=== PATIENT | female | born 1995 | race Caucasian/White ===

== ENCOUNTER 2017-04-21 12:30 | Emergency (ER) | payer OTHER, SELFPAY | END 2017-04-21 14:05 | disposition home or self-care (01) | PROVIDERS: Emergency Provider Nurse Practitioner; Family Provider Internal Medicine; Visit Provider Nurse Practitioner | DX: H65.93 Unspecified nonsuppurative otitis media, bilateral (principal); E03.9 Hypothyroidism, unspecified; Z88.6 Allergy status to analgesic agent | CPT/HCPCS: 99201 ==

== ENCOUNTER → 2017-06-25 14:29 | Outpatient (REF) | payer OTHER, SELFPAY ==
[2017-06-25 18:02] LABS: Basophils % 0.3 % (0.1-2.0); Eosinophils # 0.2 K/mm3 (0.0-0.4); Eosinophils % 2.8 % (0.1-12.0); Hematocrit 46.6 % (37.0-47.0); Hemoglobin 15.4 g/dL (12.2-16.2); Lymphocytes # 0.9 K/mm3 (0.7-4.5); Lymphocytes % 15.9 K/mm3 (10-50); Mean Corpuscular HGB Conc 33.1 g/dL (31.8-35.4); Mean Corpuscular Volume 87.6 fl (81-99); Mean Platelet Volume 7.9 fl (7.4-10.4); Monocytes # 0.4 K/mm3 (0.1-1.0); Monocytes % 6.4 % (1.7-9.3); Neutrophils # 4.1 K/mm3 (1.8-7.8); Neutrophils % 74.6 % (37.0-80.0); Platelet Count 341 K/mm3 (142-424); Red Blood Count 5.31 M/mm3 (4.20-5.40); Red Cell Distribution Width 12.6 % (11.5-17.5); White Blood Count 5.5 K/mm3 (4.5-13.0)
[2017-06-25 18:04] LABS: HCG Qualitative, Serum Negative (Negative)
[2017-06-25 19:17] LABS: Alanine Aminotransferase 39 U/L (12-78); Albumin Level 3.7 gm/dL (3.4-5.0); Albumin/Globulin Ratio 1.2 (1.1-1.8); Alkaline Phosphatase 92 U/L (46-116); Anion Gap 14.6 mEq/L (5-15); Aspartate Amino Transferase 38 U/L (15-37); Bilirubin,Total 0.3 mg/dL (0.2-1.0); Blood Urea Nitrogen 7 mg/dL (7-18); Calcium 8.5 mg/dL (8.5-10.1); Carbon Dioxide 24 mmol/L (21.0-32.0); Chloride 102 mmol/L (98-107); Chol/HDL Ratio 3.6 (1-3.5); Cholesterol 177 mg/dL (140-200); Creatinine,Serum 0.83 mg/dL (0.55-1.02); Estimated Glomerular Filt Rate 88 ml/min (>60); GFR (African American) 106 ML/MIN (>60); Glucose 89 mg/dL (74-106); HDL Cholesterol 49 mg/dL (29-89); LDL Cholesterol 113 mg/dL (0-130); Potassium 3.6 mmoL/L (3.5-5.1); Sodium 137 mmol/L (136-145); T4 (Thyroxine) 9.1 ug/dl (5.4-10.6); Thyroid Stimulating Hormone 5.05 uIU/ml (0.516-4.13); Total Protein,Serum 6.7 gm/dL (6.4-8.2); Triglycerides 76 mg/dL (30-200); VLDL Cholesterol 15 mg/dL (0-40)
[2017-06-27 18:30] LABS: Vitamin D 25 Hydroxy 35.4 ng/mL (30.0-100.0)
== END ==
LOC: LAB 14:29
PROVIDERS: Visit Provider Physician Assistant
DX: R53.83 Other fatigue (principal); Z79.899 Other long term (current) drug therapy
CPT/HCPCS: 80053; 80061; 82652; 84436; 84443; 84703; 85025

== ENCOUNTER 2017-06-27 11:41 | Emergency (ER) | payer OTHER, SELFPAY ==
[2017-06-27 11:53] VITALS: BP 145/89; PULSE 84; RESP 18; TEMP 36.8; O2SAT 98; BMI 36.5
--- NOTE | 2017-06-27 11:55 | XR_ITS ---
XR acute abdomen series HISTORY: ITS.REASON: diarrhea ORDERING PHYSICIAN: Leo Montanez MD PATIENT AGE: 22 years COMPARISON: None FINDINGS: Frontal view of the chest shows no acute finding. Upright and supine views of the abdomen show scattered air-fluid levels within colon is nondistended. No intestinal obstruction or free air. There is an IUD present. No acute bony anomalies or abnormal calcifications. IMPRESSION: Nondistended fluid-filled loops of large bowel consistent with diarrhea disease. No obstruction or other acute anomalies
[2017-06-27 11:56] VITALS: BP 131/88; BP 134/90; BP 145/85; PULSE 104; PULSE 84; PULSE 90
--- NOTE | 2017-06-27 11:57 | HMH.EDNVD ---
ED Disposition Clinical Impression: Cryptosporidial gastroenteritis, Diarrhea Disposition: Home, Self-Care Condition on Discharge: Fair Instructions: DI for Diarrhea and Traveler's Diarrhea -- Adult, DI for Diarrhea and Traveler's Diarrhea -- Child, DI for Nausea -- Adult, DI for Nausea -- Child Additional Instructions: 1- drink plenty of Gotrade. 2- start Nitazoxnide 500 mg po bid. 3- see pcp Dr Louis for HIV testing and CD 4 count. Prescriptions: Nitazoxanide [Alinia] 500 mg PO Q12 #6 tab Referrals: Jerod Louis MD [Primary Care Provider] - - Critical Care Critical Care Time: No Attestation: On 06/27/17, the high probability of a clinically significant, sudden or life threatening deterioration of the following system(s) required my full and direct attention, intervention and personal management. The time I documented below is in addition to time spent performing reported procedures but includes the following listed in this critical care notation. Medical Decision Making Vital Signs: 06/27/17 11:53 06/27/17 11:56 06/27/17 13:13 Temperature 98.3 F Temperature Source Oral Pulse Rate [Orthostatic Lying Right] 84 Pulse Rate [Orthostatic Sitting Right] 90 Pulse Rate [Orthostatic Standing Right] 104 H Pulse Rate [Right Brachial] 84 76 Respiratory Rate 18 18 Blood Pressure [Orthostatic Lying Right Arm] 145/85 Blood Pressure [Orthostatic Sitting Right Arm] 131/88 Blood Pressure [Orthostatic Standing Right Arm] 134/90 Blood Pressure [Right Arm] 145/89 113/66 Blood Pressure Mean [Right Arm] 107 81 Blood Pressure Source [Right Arm] Automatic Cuff Automatic Cuff Blood Pressure Position [Right Arm] Sitting Sitting 02 Sat by Pulse Oximetry 98 98 Oxygen Delivery Method Room Air Room Air - Lab Data Lab Results 06/27/17 11:56: Stl Aeromonas (PCR) Not detected, Stl C. cayetanensis PCR Not detected, Stool Rotavirus (PCR) Not detected, Stl Adenov F 40/41 PCR Not detected, Stool Astrovirus (PCR) Not detected, Stool Campylobacter PCR Not detected, Stl C.difficile Tox PCR Not detected, Stool Cryptosporidium PCR Detected A, Stl E.coli Shiga Tox PCR Not detected, Stool E coli O157 PCR Not detected, Stl Enterotoxigenic E PCR Not detected, Stool EPEC (PCR) Not detected, Stool EAEC (PCR) Not detected, Stl E. histolytica PCR Not detected, Stool Giardia Lamblia PCR Not detected, Stool Salmonella PCR Not detected, Stool Sapovirus (PCR) Not detected, Stl P. shigelloides PCR Not detected, Stl Shigella/EIEC PCR Not detected, St Y.enterocolitica PCR Not detected, Stool Vibrio (PCR) Not detected, Stl Vibrio cholerae PCR Not detected, Stl Norovirus GI/GII PCR Not detected 06/27/17 12:25: WBC 8.4 D, RBC 5.32, Hgb 15.4, Hct 46.0, MCV 86.4, MCH 28.9, MCHC 33.5, RDW 12.6, Plt Count 346, MPV 7.7, Neut % (Auto) 64.3, Lymph % (Auto) 22.5, [place] % (Auto) 9.0, Eos % (Auto) 3.8, Baso % (Auto) 0.4, Neut # (Auto) 5.4, Lymph # (Auto) 1.9, [place] # (Auto) 0.8, Eos # (Auto) 0.3, Baso # (Auto) 0.0 06/27/17 12:25: Sodium 137, Potassium 3.4 L, Chloride 103, Carbon Dioxide 23, Anion Gap 14.4, BUN 8, Creatinine 0.82, Estimated Creat Clear 161, Estimated GFR 89, Est GFR ( Amer) 108, Glucose 88, Calcium 8.3 L, Magnesium 1.5, Total Bilirubin 0.3, AST 30, ALT 36, Alkaline Phosphatase 86, Total Protein 6.9, Albumin 3.5, Globulin 3.4 H, Albumin/Globulin Ratio 1.0 L, Lipase 63 L Result diagrams: 06/27/17 12:25 06/27/17 12:25 Orders (Tests/Meds): ED MEDICATIONS Discontinued Medications Generic Name Dose Route Start Last Admin Trade Name Freq PRN Reason Stop Dose Admin Dicyclomine HCl 10 mg 06/27/17 12:01 06/27/17 12:29 Bentyl 10mg Capsule PO 06/27/17 12:02 10 mg ONCE ONE Administration Sodium Chloride 1,000 mls @ 999 mls/hr 06/27/17 12:30 06/27/17 12:29 Sod Chlor 0.9% 1000ml Bag IV 06/27/17 13:30 999 mls/hr .Q1H1M KORINA Administration Loperamide HCl 4 mg 06/27/17 12:01 06/27/17 12:10 Imod
[2017-06-27 11:59] LABS: Adenovirus F 40/41, stool Not Detected (NotDetected); Astrovirus Not Detected (NotDetected); Campylobacter Not Detected (NotDetected); Clostridium Difficile A/B, PCR Not Detected (NotDetected); Cyclospora Cayetanesis Not Detected (NotDetected); Entamoeba histolytica Not Detected (NotDetected); Enteroaggregative E coli Not Detected (NotDetected); Enteropathogenic E coli Not Detected (NotDetected); Enterotoxigenic E coli Not Detected (NotDetected); Giardia lamblia Not Detected (NotDetected); Norovirus Not Detected (NotDetected); Plesimonas Shigalloides, PCR Not Detected (NotDetected); Rotavirus A Not Detected (NotDetected); Salmonella, PCR Not Detected (NotDetected); Sapovirus Not Detected (NotDetected); Shiga-like toxin E coli Not Detected (NotDetected); Shigella Enterovasive E coli Not Detected (NotDetected); Vibrio Cholerae Not Detected (NotDetected); Vibrio, PCR Not Detected (NotDetected); Yersinia Entercolitica, PCR Not Detected (NotDetected)
--- NOTE | 2017-06-27 12:00 | ED_ITS ---
ED Disposition Clinical Impression: Cryptosporidial gastroenteritis, Diarrhea Disposition: Home, Self-Care Condition on Discharge: Fair Instructions: DI for Diarrhea and Traveler's Diarrhea -- Adult, DI for Diarrhea and Traveler's Diarrhea -- Child, DI for Nausea -- Adult, DI for Nausea -- Child Additional Instructions: 1- drink plenty of Gotrade. 2- start Nitazoxnide 500 mg po bid. 3- see pcp Dr Louis for HIV testing and CD 4 count. Prescriptions: Nitazoxanide [Alinia] 500 mg PO Q12 #6 tab Referrals: Jerod Louis MD [Primary Care Provider] - - Critical Care Critical Care Time: No Attestation: On 06/27/17, the high probability of a clinically significant, sudden or life threatening deterioration of the following system(s) required my full and direct attention, intervention and personal management. The time I documented below is in addition to time spent performing reported procedures but includes the following listed in this critical care notation. Medical Decision Making Vital Signs: 06/27/17 11:53 06/27/17 11:56 06/27/17 13:13 Temperature 98.3 F Temperature Source Oral Pulse Rate [Orthostatic Lying Right] 84 Pulse Rate [Orthostatic Sitting Right] 90 Pulse Rate [Orthostatic Standing Right] 104 H Pulse Rate [Right Brachial] 84 76 Respiratory Rate 18 18 Blood Pressure [Orthostatic Lying Right Arm] 145/85 Blood Pressure [Orthostatic Sitting Right Arm] 131/88 Blood Pressure [Orthostatic Standing Right Arm] 134/90 Blood Pressure [Right Arm] 145/89 113/66 Blood Pressure Mean [Right Arm] 107 81 Blood Pressure Source [Right Arm] Automatic Cuff Automatic Cuff Blood Pressure Position [Right Arm] Sitting Sitting 02 Sat by Pulse Oximetry 98 98 Oxygen Delivery Method Room Air Room Air - Lab Data Lab Results 06/27/17 11:56: Stl Aeromonas (PCR) Not detected, Stl C. cayetanensis PCR Not detected, Stool Rotavirus (PCR) Not detected, Stl Adenov F 40/41 PCR Not detected, Stool Astrovirus (PCR) Not detected, Stool Campylobacter PCR Not detected, Stl C.difficile Tox PCR Not detected, Stool Cryptosporidium PCR Detected A, Stl E.coli Shiga Tox PCR Not detected, Stool E coli O157 PCR Not detected, Stl Enterotoxigenic E PCR Not detected, Stool EPEC (PCR) Not detected , Stool EAEC (PCR) Not detected, Stl E. histolytica PCR Not detected, Stool Giardia Lamblia PCR Not detected, Stool Salmonella PCR Not detected, Stool Sapovirus (PCR) Not detected, Stl P. shigelloides PCR Not detected, Stl Shigella /EIEC PCR Not detected, St Y.enterocolitica PCR Not detected, Stool Vibrio (PCR ) Not detected, Stl Vibrio cholerae PCR Not detected, Stl Norovirus GI/GII PCR Not detected 06/27/17 12:25: WBC 8.4 D, RBC 5.32, Hgb 15.4, Hct 46.0, MCV 86.4, MCH 28.9, MCHC 33.5, RDW 12.6, Plt Count 346, MPV 7.7, Neut % (Auto) 64.3, Lymph % (Auto) 22.5, [place] % (Auto) 9.0, Eos % (Auto) 3.8, Baso % (Auto) 0.4, Neut # (Auto) 5.4 , Lymph # (Auto) 1.9, [place] # (Auto) 0.8, Eos # (Auto) 0.3, Baso # (Auto) 0.0 06/27/17 12:25: Sodium 137, Potassium 3.4 L, Chloride 103, Carbon Dioxide 23, Anion Gap 14.4, BUN 8, Creatinine 0.82, Estimated Creat Clear 161, Estimated GFR 89, Est GFR ( Amer) 108, Glucose 88, Calcium 8.3 L, Magnesium 1.5, Total Bilirubin 0.3, AST 30, ALT 36, Alkaline Phosphatase 86, Total Protein 6.9 , Albumin 3.5, Globulin 3.4 H, Albumin/Globulin Ratio 1.0 L, Lipase 63 L Result diagrams: 06/27/17 12:25 06/27/17 12:25 Orders (Tests/Meds): ED
[2017-06-27 12:29] LABS: Basophils % 0.4 % (0.1-2.0); Eosinophils # 0.3 K/mm3 (0.0-0.4); Eosinophils % 3.8 % (0.1-12.0); Hemoglobin 15.4 g/dL (12.2-16.2); Lymphocytes # 1.9 K/mm3 (0.7-4.5); Lymphocytes % 22.5 K/mm3 (10-50); Mean Corpuscular HGB Conc 33.5 g/dL (31.8-35.4); Mean Corpuscular Hemoglobin 28.9 pg (27.0-31.2); Mean Corpuscular Volume 86.4 fl (81-99); Mean Platelet Volume 7.7 fl (7.4-10.4); Monocytes # 0.8 K/mm3 (0.1-1.0); Neutrophils # 5.4 K/mm3 (1.8-7.8); Neutrophils % 64.3 % (37.0-80.0); Platelet Count 346 K/mm3 (142-424); Red Blood Count 5.32 M/mm3 (4.20-5.40); Red Cell Distribution Width 12.6 % (11.5-17.5); White Blood Count 8.4 K/mm3 (4.5-13.0)
[2017-06-27 12:44] LABS: Alanine Aminotransferase 36 U/L (12-78); Albumin Level 3.5 gm/dL (3.4-5.0); Alkaline Phosphatase 86 U/L (46-116); Anion Gap 14.4 mEq/L (5-15); Bilirubin,Total 0.3 mg/dL (0.2-1.0); Blood Urea Nitrogen 8 mg/dL (7-18); Calcium 8.3 mg/dL (8.5-10.1); Carbon Dioxide 23 mmol/L (21.0-32.0); Chloride 103 mmol/L (98-107); Creatinine Clearance Estimated 161 mL/min (0-300); Creatinine,Serum 0.82 mg/dL (0.55-1.02); Estimated Glomerular Filt Rate 89 ml/min (>60); GFR (African American) 108 ML/MIN (>60); Globulin 3.4 gm/dl (1.3-3.2); Glucose 88 mg/dL (74-106); Lipase 63 u/L (73-393); Magnesium 1.5 mg/dL (1.4-2.2); Sodium 137 mmol/L (136-145); Total Protein,Serum 6.9 gm/dL (6.4-8.2)
[2017-06-27 12:48] LABS: Aspartate Amino Transferase 30 U/L (15-37); Potassium 3.4 mmoL/L (3.5-5.1)
[2017-06-27 13:13] VITALS: BP 113/66; PULSE 76; RESP 18; O2SAT 98
--- NOTE | 2017-06-27 14:40 | PC.NURSE ---
contacted lab to check on status of diarrhea panel, lab staff stated specimen had to be reran r/t error with machine. stated should be finished in approx 20 minutes
[2017-06-27 15:02] LABS: Cryptosporidium Detected (NotDetected)
--- NOTE | 2017-06-27 15:27 | PC.NURSE ---
ER contacting [facility] to speak with infectious disease for consult
[2017-06-27 16:02] VITALS: BP 132/77; PULSE 84; RESP 18; TEMP 36.8; O2SAT 100
--- NOTE | 2017-06-27 16:31 | PC.NURSE ---
mother called and states pt's insurance will not cover the prescribed med for cyptosporidium. md states to advise mother that he can order pt cipro, but it may not be effective (or as effective) and that pt may have to end up taking this med that was prescribed today. mother agrees to try cipro for now. cipro 500mg bid x7 days ordered.
== END 2017-06-27 16:02 | disposition home or self-care (01) ==
PROVIDERS: Emergency Provider Emergency Medicine; Family Provider Internal Medicine; PCP Emergency Medicine
DX: A07.2 Cryptosporidiosis (principal); Z88.6 Allergy status to analgesic agent; R10.32 Left lower quadrant pain
CPT/HCPCS: 74021; 80053; 83690; 83735; 85025; 87507; 96365; 99284; J2405

== ENCOUNTER → 2017-06-29 13:48 | Outpatient (CLI) | payer OTHER, SELFPAY ==
[2017-07-02 11:52] LABS: HIV Screen 4th Generation wRfx Non Reactive (Non Reactive)
== END ==
PROVIDERS: Visit Provider Physician Assistant
DX: Z11.4 Encounter for screening for human immunodeficiency virus [HIV] (principal)
CPT/HCPCS: 36415; 86703; G0432

== ENCOUNTER → 2017-07-08 16:16 | Outpatient (CLI) | payer OTHER, SELFPAY ==
[2017-07-08 16:20] LABS: Adenovirus F 40/41, stool Not Detected (NotDetected); Astrovirus Not Detected (NotDetected); Campylobacter Not Detected (NotDetected); Clostridium Difficile A/B, PCR Not Detected (NotDetected); Cyclospora Cayetanesis Not Detected (NotDetected); Entamoeba histolytica Not Detected (NotDetected); Enteroaggregative E coli Not Detected (NotDetected); Enteropathogenic E coli Not Detected (NotDetected); Enterotoxigenic E coli Not Detected (NotDetected); Giardia lamblia Not Detected (NotDetected); Norovirus Not Detected (NotDetected); Plesimonas Shigalloides, PCR Not Detected (NotDetected); Rotavirus A Not Detected (NotDetected); Salmonella, PCR Not Detected (NotDetected); Sapovirus Not Detected (NotDetected); Shiga-like toxin E coli Not Detected (NotDetected); Shigella Enterovasive E coli Not Detected (NotDetected); Vibrio Cholerae Not Detected (NotDetected); Vibrio, PCR Not Detected (NotDetected); Yersinia Entercolitica, PCR Not Detected (NotDetected)
[2017-07-08 21:49] LABS: Cryptosporidium Detected (NotDetected)
== END ==
PROVIDERS: PCP Physician Assistant; Visit Provider Physician Assistant
DX: R19.7 Diarrhea, unspecified (principal)
CPT/HCPCS: 87507

== ENCOUNTER → 2017-11-18 13:47 | Outpatient (CLI) | payer OTHER, SELFPAY ==
[2017-11-18 14:13] LABS: Basophils % 0.5 % (0.1-2.0); Eosinophils # 0.2 K/mm3 (0.0-0.4); Eosinophils % 2.8 % (0.1-12.0); Hematocrit 43.6 % (37.0-47.0); Lymphocytes % 28.3 K/mm3 (10-50); Mean Corpuscular HGB Conc 32.2 g/dL (31.8-35.4); Mean Corpuscular Hemoglobin 27.2 pg (27.0-31.2); Mean Corpuscular Volume 84.4 fl (81-99); Monocytes # 0.3 K/mm3 (0.1-1.0); Monocytes % 4.8 % (1.7-9.3); Neutrophils # 4.5 K/mm3 (1.8-7.8); Neutrophils % 63.6 % (37.0-80.0); Platelet Count 403 K/mm3 (142-424); Red Blood Count 5.16 M/mm3 (4.20-5.40)
[2017-11-18 15:03] LABS: Alanine Aminotransferase 24 U/L (12-78); Albumin Level 3.8 gm/dL (3.4-5.0); Albumin/Globulin Ratio 1.3 (1.1-1.8); Alkaline Phosphatase 94 U/L (46-116); Anion Gap 14.3 mEq/L (5-15); Aspartate Amino Transferase 9 U/L (15-37); Bilirubin,Total 0.2 mg/dL (0.2-1.0); Blood Urea Nitrogen 10 mg/dL (7-18); Calcium 9.1 mg/dL (8.5-10.1); Carbon Dioxide 24 mmol/L (21.0-32.0); Chloride 106 mmol/L (98-107); Chol/HDL Ratio 3.6 (1-3.5); Cholesterol 202 mg/dL (140-200); Estimated Glomerular Filt Rate 91 ml/min (>60); GFR (African American) 111 ML/MIN (>60); Globulin 2.9 gm/dl (1.3-3.2); Glucose 112 mg/dL (74-106); HDL Cholesterol 56 mg/dL (29-89); LDL Cholesterol 111 mg/dL (0-130); Potassium 4.3 mmoL/L (3.5-5.1); Sodium 140 mmol/L (136-145); T4 (Thyroxine) 8.1 ug/dl (5.4-10.6); Total Protein,Serum 6.7 gm/dL (6.4-8.2); Triglycerides 177 mg/dL (30-200); VLDL Cholesterol 35 mg/dL (0-40)
[2017-11-20 06:35] LABS: Vitamin D 25 Hydroxy 28.2 ng/mL (30.0-100.0)
== END ==
PROVIDERS: Visit Provider Physician Assistant
DX: E03.9 Hypothyroidism, unspecified (principal); R53.83 Other fatigue
CPT/HCPCS: 36415; 80053; 80061; 82652; 84436; 84443; 85025

== ENCOUNTER → 2017-12-08 09:53 | Outpatient (CLI) | payer OTHER, SELFPAY ==
[2017-12-08 10:31] LABS: Basophils % 0.4 % (0.1-2.0); Eosinophils # 0.2 K/mm3 (0.0-0.4); Eosinophils % 1.9 % (0.1-12.0); Hematocrit 40.7 % (37.0-47.0); Hemoglobin 13.2 g/dL (12.2-16.2); Lymphocytes # 1.9 K/mm3 (0.7-4.5); Lymphocytes % 24.9 K/mm3 (10-50); Mean Corpuscular HGB Conc 32.4 g/dL (31.8-35.4); Mean Corpuscular Hemoglobin 27.5 pg (27.0-31.2); Mean Corpuscular Volume 84.9 fl (81-99); Mean Platelet Volume 6.9 fl (7.4-10.4); Monocytes # 0.5 K/mm3 (0.1-1.0); Monocytes % 5.9 % (1.7-9.3); Neutrophils # 5.1 K/mm3 (1.8-7.8); Neutrophils % 66.9 % (37.0-80.0); Platelet Count 365 K/mm3 (142-424); Red Cell Distribution Width 13.6 % (11.5-17.5); White Blood Count 7.7 K/mm3 (4.5-13.0)
[2017-12-08 10:42] LABS: Hemoglobin A1C 5.8 % (0.0-7.0)
[2017-12-08 11:24] LABS: Alanine Aminotransferase 27 U/L (12-78); Albumin Level 3.6 gm/dL (3.4-5.0); Albumin/Globulin Ratio 1.2 (1.1-1.8); Alkaline Phosphatase 85 U/L (46-116); Anion Gap 16.4 mEq/L (5-15); Aspartate Amino Transferase 9 U/L (15-37); Bilirubin,Total 0.2 mg/dL (0.2-1.0); Blood Urea Nitrogen 9 mg/dL (7-18); Calcium 8.6 mg/dL (8.5-10.1); Carbon Dioxide 24 mmol/L (21.0-32.0); Chloride 104 mmol/L (98-107); Chol/HDL Ratio 3.2 (1-3.5); Cholesterol 204 mg/dL (140-200); Creatinine,Serum 0.84 mg/dL (0.55-1.02); Estimated Glomerular Filt Rate 86 ml/min (>60); Ferritin 16 ng/mL (8-388); GFR (African American) 105 ML/MIN (>60); Globulin 2.9 gm/dl (1.3-3.2); Glucose 96 mg/dL (74-106); HDL Cholesterol 63 mg/dL (29-89); Iron 54 ug/dl (28-170); LDL Cholesterol 124 mg/dL (0-130); Magnesium 1.7 mg/dL (1.4-2.2); Phosphorous 3.7 mg/dL (2.4-4.9); Potassium 4.4 mmoL/L (3.5-5.1); Sodium 140 mmol/L (136-145); Thyroid Stimulating Hormone 3.62 uIU/ml (0.516-4.13); Total Protein,Serum 6.5 gm/dL (6.4-8.2); Triglycerides 86 mg/dL (30-200); VLDL Cholesterol 17 mg/dL (0-40)
[2017-12-09 07:04] LABS: Folate >20.0 ng/mL (>3.0)
[2017-12-09 08:47] LABS: Prealbumin 25 mg/dL (14-35); Vitamin D 25 Hydroxy 40.9 ng/mL (30.0-100.0)
[2017-12-09 15:04] LABS: Parathyroid Hormone Intact 47 pg/mL (15-65)
[2017-12-11 09:10] LABS: Methylmalonic Acid 172 nmol/L (0-378)
[2017-12-12 15:12] LABS: Vitamin E Alpha Tocopherol 10.7 mg/L (5.9-19.4)
[2017-12-12 18:39] LABS: Vitamin A 44.5 ug/dL (31.2-89.1); Vitamin B1 162.5 nmol/L (66.5-200.0); Vitamin E Gamma Tocopherol 1.3 mg/L (0.7-4.9)
== END ==
PROVIDERS: Visit Provider Physician Assistant
DX: R12 Heartburn (principal); E78.5 Hyperlipidemia, unspecified; R06.09 Other forms of dyspnea; E66.01 Morbid (severe) obesity due to excess calories
CPT/HCPCS: 36415; 80053; 80061; 82131; 82652; 82728; 82746; 83036; 83540; 83735; 83970; 84100; 84134; 84425; 84443; 84446; 84590; 85025

== ENCOUNTER → 2018-01-07 11:26 | Outpatient (CLI) | payer OTHER, SELFPAY ==
--- NOTE | 2018-01-07 11:31 | XR_ITS ---
XR chest 2V HISTORY: ITS.REASON: COUGH ORDERING PHYSICIAN: Burak Benjamin MD PATIENT AGE: 22 years COMPARISON: None FINDINGS: The cardiomediastinal silhouette and pulmonary vascularity are within normal limits. The lungs are clear without infiltrates, suspicious nodules, or pleural effusions. No acute bony abnormalities. IMPRESSION: Negative chest, no acute finding
== END ==
PROVIDERS: PCP Physician Assistant; Visit Provider Internal Medicine Pulmonary Disease
DX: R05 Cough (principal)
CPT/HCPCS: 71046

== ENCOUNTER → 2018-05-04 14:42 | Outpatient (CLI) | payer OTHER, SELFPAY ==
[2018-05-04 15:05] LABS: Basophils % 0.5 % (0.1-2.0); Eosinophils # 0.1 K/mm3 (0.0-0.4); Eosinophils % 1.3 % (0.1-12.0); Hematocrit 43.9 % (37.0-47.0); Hemoglobin 14.4 g/dL (12.2-16.2); Lymphocytes # 1.9 K/mm3 (0.7-4.5); Lymphocytes % 27.4 % (10-50); Mean Corpuscular HGB Conc 32.9 g/dL (31.8-35.4); Mean Corpuscular Volume 88.3 fl (81-99); Mean Platelet Volume 8.3 fl (7.4-10.4); Monocytes # 0.4 K/mm3 (0.1-1.0); Monocytes % 5.7 % (1.7-9.3); Neutrophils # 4.5 K/mm3 (1.8-7.8); Neutrophils % 65.1 % (37.0-80.0); Platelet Count 437 K/mm3 (142-424); Red Blood Count 4.98 M/mm3 (4.20-5.40)
[2018-05-04 15:58] LABS: Alanine Aminotransferase 29 U/L (12-78); Albumin Level 3.9 gm/dL (3.4-5.0); Albumin/Globulin Ratio 1.2 (1.1-1.8); Anion Gap 18.6 mEq/L (5-15); Aspartate Amino Transferase 17 U/L (15-37); Bilirubin,Total 0.3 mg/dL (0.2-1.0); Blood Urea Nitrogen 7 mg/dL (7-18); Carbon Dioxide 22 mmol/L (21.0-32.0); Chloride 104 mmol/L (98-107); Creatinine,Serum 0.79 mg/dL (0.55-1.02); Estimated Glomerular Filt Rate 93 ml/min (>60); GFR (African American) 112 ML/MIN (>60); Globulin 3.2 gm/dl (1.3-3.2); Glucose 93 mg/dL (74-106); Potassium 4.6 mmoL/L (3.5-5.1); Sodium 140 mmol/L (136-145); Total Protein,Serum 7.1 gm/dL (6.4-8.2); Triglycerides 74 mg/dL (30-200)
[2018-05-04 15:59] LABS: Alkaline Phosphatase 89 U/L (46-116); Chol/HDL Ratio 3.8 (1-3.5); Cholesterol 208 mg/dL (140-200); Free Thyroxine Index 2.5 ug/dL (5.93-13.13); HDL Cholesterol 55 mg/dL (29-89); LDL Cholesterol 138 mg/dL (0-130); T4 (Thyroxine) 7.7 ug/dl (5.4-10.6); Thyroid Stimulating Hormone 3.15 uIU/ml (0.516-4.13); Triiodothryronine (T3) Uptake 32 % (31-39); VLDL Cholesterol 15 mg/dL (0-40)
== END ==
PROVIDERS: Visit Provider Physician Assistant
DX: E66.9 Obesity, unspecified (principal)
CPT/HCPCS: 80053; 80061; 84436; 84443; 84479; 85025

== ENCOUNTER → 2018-07-07 13:27 | Outpatient (CLI) | payer OTHER, SELFPAY ==
--- NOTE | 2018-07-07 13:34 | XR_ITS ---
XR chest 2V HISTORY: ITS.REASON: ASTHMA ORDERING PHYSICIAN: Renetta Carias PATIENT AGE: 23 years COMPARISON: 01/07/2018 FINDINGS: The cardiomediastinal silhouette and pulmonary vascularity are within normal limits. The lungs are clear without infiltrates, suspicious nodules, or pleural effusions. No acute bony abnormalities. IMPRESSION: Negative chest, no acute finding
== END ==
PROVIDERS: PCP Physician Assistant; Visit Provider Physician Assistant
DX: Z01.818 Encounter for other preprocedural examination (principal); R12 Heartburn; E78.5 Hyperlipidemia, unspecified; R06.09 Other forms of dyspnea; E66.01 Morbid (severe) obesity due to excess calories
CPT/HCPCS: 71046; 93005

== ENCOUNTER → 2018-09-01 13:26 | Outpatient (CLI) | payer OTHER, SELFPAY ==
[2018-09-01 14:04] LABS: Basophils % 0.5 % (0.1-2.0); Eosinophils # 0.1 K/mm3 (0.0-0.4); Eosinophils % 2.6 % (0.1-12.0); Hematocrit 40.8 % (37.0-47.0); Hemoglobin 13.5 g/dL (12.2-16.2); Lymphocytes # 1.6 K/mm3 (0.7-4.5); Lymphocytes % 30.5 % (10-50); Mean Corpuscular HGB Conc 32.9 g/dL (31.8-35.4); Mean Corpuscular Hemoglobin 29.4 pg (27.0-31.2); Mean Corpuscular Volume 89.2 fl (81-99); Mean Platelet Volume 8.3 fl (7.4-10.4); Monocytes # 0.3 K/mm3 (0.1-1.0); Monocytes % 6.4 % (1.7-9.3); Neutrophils # 3.1 K/mm3 (1.8-7.8); Neutrophils % 59.9 % (37.0-80.0); Platelet Count 358 K/mm3 (142-424); Red Blood Count 4.58 M/mm3 (4.20-5.40); Red Cell Distribution Width 13.4 % (11.5-17.5); White Blood Count 5.2 K/mm3 (4.8-10.8)
[2018-09-01 16:45] LABS: Alanine Aminotransferase 33 U/L (12-78); Albumin Level 4.2 gm/dL (3.4-5.0); Albumin/Globulin Ratio 1.6 (1.1-1.8); Alkaline Phosphatase 96 U/L (46-116); Anion Gap 13.8 mEq/L (5-15); Aspartate Amino Transferase 13 U/L (15-37); Bilirubin,Total 0.4 mg/dL (0.2-1.0); Blood Urea Nitrogen 5 mg/dL (7-18); Calcium 9.2 mg/dL (8.5-10.1); Carbon Dioxide 24 mmol/L (21.0-32.0); Chloride 106 mmol/L (98-107); Creatinine,Serum 0.69 mg/dL (0.55-1.02); Estimated Glomerular Filt Rate 107 ml/min (>60); Ferritin 35 ng/mL (8-388); GFR (African American) 130 ML/MIN (>60); Globulin 2.6 gm/dl (1.3-3.2); Glucose 87 mg/dL (74-106); Iron 41 ug/dl (28-170); Magnesium 1.9 mg/dL (1.4-2.2); Potassium 3.8 mmoL/L (3.5-5.1); Sodium 140 mmol/L (136-145); Thyroid Stimulating Hormone 1.47 uIU/ml (0.358-3.740); Total Protein,Serum 6.8 gm/dL (6.4-8.2)
[2018-09-02 10:54] LABS: Phosphorous 3.2 mg/dL (2.4-4.9)
[2018-09-02 13:21] LABS: Parathyroid Hormone Intact 41 pg/mL (15-65)
[2018-09-03 06:22] LABS: Folate >20.0 ng/mL (>3.0); Prealbumin 21 mg/dL (14-35); Vitamin D 25 Hydroxy 83.8 ng/mL (30.0-100.0)
[2018-09-04 13:37] LABS: Methylmalonic Acid 222 nmol/L (0-378)
[2018-09-04 21:00] LABS: Vitamin B1 111.4 nmol/L (66.5-200.0)
[2018-09-06 07:46] LABS: Vitamin A 33.4 ug/dL (18.9-57.3); Vitamin E Alpha Tocopherol 8.1 mg/L (5.9-19.4); Vitamin E Gamma Tocopherol 1.5 mg/L (0.7-4.9)
== END ==
PROVIDERS: Visit Provider Physician Assistant
DX: R63.4 Abnormal weight loss (principal); R06.09 Other forms of dyspnea; I10 Essential (primary) hypertension; Z13.21 Encounter for screening for nutritional disorder; Z98.84 Bariatric surgery status
CPT/HCPCS: 36415; 80053; 82131; 82652; 82728; 82746; 83540; 83735; 83970; 84100; 84134; 84425; 84443; 84446; 84590; 85025

== ENCOUNTER → 2018-11-29 10:04 | Outpatient (CLI) | payer OTHER, SELFPAY ==
[2018-11-29 12:58] LABS: Alanine Aminotransferase 17 U/L (12-78); Albumin Level 3.9 gm/dL (3.4-5.0); Albumin/Globulin Ratio 1.4 (1.1-1.8); Alkaline Phosphatase 102 U/L (46-116); Anion Gap 16.7 mEq/L (5-15); Aspartate Amino Transferase 7 U/L (15-37); Bilirubin,Total 0.5 mg/dL (0.2-1.0); Blood Urea Nitrogen 9 mg/dL (7-18); Calcium 9.5 mg/dL (8.5-10.1); Carbon Dioxide 24 mmol/L (21.0-32.0); Chloride 104 mmol/L (98-107); Chol/HDL Ratio 4.9 (1-3.5); Cholesterol 222 mg/dL (140-200); Creatinine,Serum 0.68 mg/dL (0.55-1.02); Estimated Glomerular Filt Rate 109 ml/min (>60); Ferritin 44 ng/mL (8-388); GFR (African American) 132 ML/MIN (>60); Globulin 2.8 gm/dl (1.3-3.2); Glucose 77 mg/dL (74-106); HDL Cholesterol 45 mg/dL (29-89); Iron 85 ug/dl (28-170); LDL Cholesterol 157 mg/dL (0-130); Magnesium 1.7 mg/dL (1.4-2.2); Potassium 3.7 mmoL/L (3.5-5.1); Sodium 141 mmol/L (136-145); Thyroid Stimulating Hormone 1.56 uIU/ml (0.358-3.740); Total Protein,Serum 6.7 gm/dL (6.4-8.2); Triglycerides 98 mg/dL (30-200); VLDL Cholesterol 20 mg/dL (0-40)
[2018-12-02 04:23] LABS: Vitamin A 36.1 ug/dL (18.9-57.3); Vitamin E Alpha Tocopherol 12.5 mg/L (5.9-19.4); Vitamin E Gamma Tocopherol 1.1 mg/L (0.7-4.9)
== END ==
PROVIDERS: Visit Provider Physician Assistant
DX: I10 Essential (primary) hypertension (principal); R06.09 Other forms of dyspnea; R63.4 Abnormal weight loss; Z98.84 Bariatric surgery status
CPT/HCPCS: 36415; 80053; 80061; 82652; 82728; 83540; 83735; 84100; 84443; 84446; 84590

== ENCOUNTER → 2018-12-02 16:13 | Outpatient (CLI) | payer OTHER, SELFPAY ==
[2018-12-02 17:24] LABS: Basophils % 0.5 % (0.1-2.0); Eosinophils # 0.3 K/mm3 (0.0-0.4); Eosinophils % 5.6 % (0.1-12.0); Hematocrit 41.6 % (37.0-47.0); Hemoglobin 13.5 g/dL (12.2-16.2); Lymphocytes # 1.9 K/mm3 (0.7-4.5); Lymphocytes % 31.3 % (10-50); Mean Corpuscular HGB Conc 32.4 g/dL (31.8-35.4); Mean Corpuscular Hemoglobin 28.6 pg (27.0-31.2); Mean Corpuscular Volume 88.4 fl (81-99); Monocytes # 0.4 K/mm3 (0.1-1.0); Monocytes % 6.1 % (1.7-9.3); Neutrophils # 3.5 K/mm3 (1.8-7.8); Neutrophils % 56.6 % (37.0-80.0); Platelet Count 354 K/mm3 (142-424); Red Blood Count 4.71 M/mm3 (4.20-5.40); Red Cell Distribution Width 13.1 % (11.5-17.5); White Blood Count 6.1 K/mm3 (4.8-10.8)
[2018-12-02 19:17] LABS: Hemoglobin A1C 5.5 % (0.0-7.0)
[2018-12-04 18:01] LABS: Parathyroid Hormone Intact 28 pg/mL (15-65); Prealbumin 22 mg/dL (14-35)
[2018-12-06 17:19] LABS: Methylmalonic Acid 130 nmol/L (0-378)
[2018-12-08 09:27] LABS: Vitamin B1 131.5 nmol/L (66.5-200.0)
== END ==
PROVIDERS: Visit Provider Physician Assistant
DX: I10 Essential (primary) hypertension (principal); R06.09 Other forms of dyspnea; R63.4 Abnormal weight loss
CPT/HCPCS: 36415; 82131; 82746; 83036; 83970; 84134; 84425; 85025

== ENCOUNTER → 2019-01-17 15:52 | Outpatient (CLI) | payer OTHER, SELFPAY ==
[2019-01-17 17:31] LABS: Free T4 (Free Thyroxine) 0.97 ng/dl (0.76-1.46)
[2019-01-17 17:34] LABS: Thyroid Stimulating Hormone 2.96 uIU/ml (0.358-3.740)
[2019-01-19 10:49] LABS: Thyroid Peroxidase Antibodies 317 IU/mL (0-34)
[2019-01-22 13:21] LABS: Thyroid Stimulating Immunoglob <0.10 IU/L (0.00-0.55)
== END ==
PROVIDERS: Visit Provider Otolaryngology
DX: E04.9 Nontoxic goiter, unspecified (principal)
CPT/HCPCS: 36415; 84439; 84443; 84445; 86376

== ENCOUNTER → 2019-02-02 09:02 | Outpatient (CLI) | payer OTHER, SELFPAY ==
--- NOTE | 2019-02-02 09:04 | US_ITS ---
PROCEDURE: US THYROID CLINICAL INDICATION: goiter follow-up goiter, follow-up enlarged thyroid, thyroid nodules COMPARISON: THY US THYROID from 06/20/2013 FINDINGS: Right lobe: 4.9 x 1.7 x 2.2 cm with heterogeneous echogenicity with a multinodular appearance similar to the previous exam with no discrete nodule identified slight increased vascularity Left lobe: . 4.7 x 1.6 x 1.9 cm with heterogeneous echogenicity with a multinodular configuration. No discrete nodule evident in longitudinal and transverse dimension. Inferior to the left lobe there is a 3 x 1 x 0.5 cm area of heterogeneous echogenicity consistent with a small lymph node. Isthmus: Mildly prominent at 4 mm. Additional findings: IMPRESSION: Overall no significant change in the enlarged thyroid gland with heterogeneous nodular appearance. Probable small lymph node inferior to the left lobe of the thyroid gland Dictated by: Gio Reece MD 02/03/2019 12:29 Electronically signed by Gio Reece MD in [facility] 02/03/2019 12:29
== END ==
PROVIDERS: PCP Physician Assistant; Visit Provider Otolaryngology
DX: E04.9 Nontoxic goiter, unspecified (principal)
CPT/HCPCS: 76536

== ENCOUNTER → 2019-03-29 11:55 | Outpatient (CLI) | payer OTHER, SELFPAY ==
[2019-03-29 12:27] LABS: Basophils % 0.7 % (0.1-2.0); Eosinophils # 0.3 K/mm3 (0.0-0.4); Eosinophils % 4.4 % (0.1-12.0); Hemoglobin 14.5 g/dL (12.2-16.2); Lymphocytes # 1.9 K/mm3 (0.7-4.5); Lymphocytes % 32.2 % (10-50); Mean Corpuscular HGB Conc 32.9 g/dL (31.8-35.4); Mean Corpuscular Hemoglobin 30.1 pg (27.0-31.2); Mean Corpuscular Volume 91.3 fl (81-99); Mean Platelet Volume 8.6 fl (7.4-10.4); Monocytes # 0.3 K/mm3 (0.1-1.0); Monocytes % 5.1 % (1.7-9.3); Neutrophils # 3.4 K/mm3 (1.8-7.8); Neutrophils % 57.7 % (37.0-80.0); Platelet Count 340 K/mm3 (142-424); Red Blood Count 4.82 M/mm3 (4.20-5.40); Red Cell Distribution Width 12.2 % (11.5-17.5); White Blood Count 5.9 K/mm3 (4.8-10.8)
[2019-03-29 13:04] LABS: Hemoglobin A1C 5.5 % (0.0-7.0)
[2019-03-29 14:52] LABS: Alanine Aminotransferase 14 U/L (12-78); Albumin Level 4.1 gm/dL (3.4-5.0); Albumin/Globulin Ratio 1.6 (1.1-1.8); Alkaline Phosphatase 90 U/L (46-116); Aspartate Amino Transferase 12 U/L (15-37); Bilirubin,Total 0.6 mg/dL (0.2-1.0); Blood Urea Nitrogen 8 mg/dL (7-18); Carbon Dioxide 25 mmol/L (21.0-32.0); Chloride 105 mmol/L (98-107); Chol/HDL Ratio 2.9 (1-3.5); Cholesterol 162 mg/dL (140-200); Creatinine,Serum 0.67 mg/dL (0.55-1.02); Estimated Glomerular Filt Rate 111 ml/min (>60); Ferritin 50 ng/mL (8-388); GFR (African American) 134 ML/MIN (>60); Globulin 2.6 gm/dl (1.3-3.2); Glucose 88 mg/dL (74-106); HDL Cholesterol 56 mg/dL (29-89); Iron 136 ug/dl (28-170); LDL Cholesterol 90 mg/dL (0-130); Magnesium 1.7 mg/dL (1.4-2.2); Phosphorous 3.6 mg/dL (2.4-4.9); Sodium 141 mmol/L (136-145); Thyroid Stimulating Hormone 3.38 uIU/ml (0.358-3.740); Total Protein,Serum 6.7 gm/dL (6.4-8.2); Triglycerides 80 mg/dL (30-200); VLDL Cholesterol 16 mg/dL (0-40)
[2019-03-30 14:12] LABS: Folate 17.5 ng/mL (>3.0); Prealbumin 25 mg/dL (14-35); Vitamin D 25 Hydroxy 82.7 ng/mL (30.0-100.0)
[2019-03-31 11:17] LABS: Parathyroid Hormone Intact 32 pg/mL (15-65)
[2019-04-01 07:38] LABS: Methylmalonic Acid 174 nmol/L (0-378)
[2019-04-01 10:47] LABS: Vitamin B1 144.4 nmol/L (66.5-200.0)
[2019-04-02 22:59] LABS: Vitamin E Alpha Tocopherol 10.1 mg/L (5.9-19.4)
[2019-04-03 23:15] LABS: Vitamin A 40.1 ug/dL (18.9-57.3)
== END ==
PROVIDERS: Visit Provider Physician Assistant
DX: Z98.84 Bariatric surgery status (principal); E78.5 Hyperlipidemia, unspecified; I10 Essential (primary) hypertension
CPT/HCPCS: 36415; 80053; 80061; 82131; 82652; 82728; 82746; 83036; 83540; 83735; 83970; 84100; 84134; 84425; 84443; 84446; 84590; 85025

== ENCOUNTER → 2019-09-06 11:03 | Outpatient (CLI) | payer OTHER, SELFPAY ==
[2019-09-06 11:57] LABS: Basophils % 0.6 % (0.1-2.0); Eosinophils # 0.2 K/mm3 (0.0-0.4); Hematocrit 41.4 % (37.0-47.0); Lymphocytes # 1.9 K/mm3 (0.7-4.5); Lymphocytes % 29.8 % (10-50); Mean Corpuscular HGB Conc 31.4 g/dL (31.8-35.4); Mean Corpuscular Hemoglobin 29.4 pg (27.0-31.2); Mean Corpuscular Volume 93.7 fl (81-99); Mean Platelet Volume 8.5 fl (7.4-10.4); Monocytes # 0.3 K/mm3 (0.1-1.0); Neutrophils # 3.9 K/mm3 (1.8-7.8); Neutrophils % 61.6 % (37.0-80.0); Platelet Count 303 K/mm3 (142-424); Red Blood Count 4.42 M/mm3 (4.20-5.40); Red Cell Distribution Width 13.3 % (11.5-17.5); White Blood Count 6.4 K/mm3 (4.8-10.8)
[2019-09-06 12:37] LABS: Chloride 108 mmol/L (98-107); Potassium 4.2 mmoL/L (3.5-5.1); Sodium 135 mmol/L (136-145)
[2019-09-06 12:39] LABS: Alanine Aminotransferase 12 U/L (12-78); Alkaline Phosphatase 47 U/L (38-126); Aspartate Amino Transferase 16 U/L (14-36); Bilirubin,Total 0.5 mg/dl (0.2-1.3); Blood Urea Nitrogen 9 mg/dl (7-17); Estimated Glomerular Filt Rate 90 ml/min (>60); GFR (African American) 109 ML/MIN (>60)
[2019-09-06 12:40] LABS: Anion Gap 8.2 mEq/L (5-15); Calcium 9.3 mg/dl (8.4-10.2); Carbon Dioxide 23 mmol/L (22.0-30.0); Cholesterol 128 mg/dl (140-200); Glucose 82 mg/dl (74-100); Iron 95 ug/dL (37-170); Magnesium 1.9 mg/dl (1.6-2.3); Phosphorous 3.6 mg/dl (2.5-4.5); Triglycerides 68 mg/dl (30-150); VLDL Cholesterol 14 mg/dL (0-40)
[2019-09-06 12:41] LABS: Chol/HDL Ratio 2.3 (1-3.5); HDL Cholesterol 56 mg/dl (40-60)
[2019-09-06 12:52] LABS: Direct LDL Cholesterol 76.72 mg/dL (100-129)
[2019-09-06 13:12] LABS: Thyroid Stimulating Hormone 2.54 uIU/mL (0.465-4.68)
[2019-09-06 13:16] LABS: Ferritin 29.7 ng/ml (6.24-137)
[2019-09-06 13:26] LABS: Hemoglobin A1C 4.9 % (4.0-6.0)
[2019-09-08 10:41] LABS: Methylmalonic Acid 216 nmol/L (0-378)
[2019-09-08 11:14] LABS: Folate 16.4 ng/mL (>3.0); Parathyroid Hormone Intact 11 pg/mL (15-65); Prealbumin 23 mg/dL (14-35)
[2019-09-09 03:36] LABS: Vitamin E Alpha Tocopherol 9.5 mg/L (5.9-19.4)
[2019-09-09 04:02] LABS: Vitamin B1 127.9 nmol/L (66.5-200.0)
[2019-09-09 04:03] LABS: Vitamin A 47.9 ug/dL (18.9-57.3); Vitamin E Gamma Tocopherol 0.9 mg/L (0.7-4.9)
== END ==
PROVIDERS: Visit Provider Physician Assistant
DX: E78.5 Hyperlipidemia, unspecified (principal); I10 Essential (primary) hypertension; Z98.84 Bariatric surgery status
CPT/HCPCS: 36415; 80053; 80061; 82131; 82652; 82728; 82746; 83036; 83540; 83735; 83970; 84100; 84134; 84425; 84443; 84446; 84590; 85025

== ENCOUNTER → 2019-09-12 11:23 | Outpatient (CLI) | payer OTHER, SELFPAY | PROVIDERS: PCP Specialist; Visit Provider Specialist | DX: G43.919 Migraine, unspecified, intractable, without status migrainosus (principal); G44.81 Hypnic headache; G47.19 Other hypersomnia | CPT/HCPCS: 94762 ==

== ENCOUNTER → 2019-09-27 07:47 | Outpatient (CLI) | payer OTHER, SELFPAY ==
--- NOTE | 2019-09-27 07:47 | MR_ITS ---
PROCEDURE: MR HEAD/BRAIN WO CON CLINICAL INDICATION: worsening headaches, now daily Severe headaches COMPARISON: No exams were available for comparison TECHNIQUE: Routine multiplanar multi echo sequences are performed without gadolinium enhancement. FINDINGS: No midline shift, mass effect, intracranial hemorrhage, or hydrocephalus is evident. No evidence of acute infarction. The cerebellopontine angle, cerebellum, and brainstem are unremarkable. No abnormal white matter signal intensity. The hippocampal gyri are unremarkable and the temporal horns are symmetric. No mastoid effusion or sinus air-fluid level. The pituitary, optic chiasm, corpus callosum, and craniocervical junction have an unremarkable appearance IMPRESSION: Negative MRI of the brain without contrast, no acute finding Dictated by: Gio Reece MD 09/28/2019 10:49 Electronically signed by Gio Reece MD in [facility] 09/28/2019 10:49
== END ==
PROVIDERS: PCP Physician Assistant; Visit Provider Specialist
DX: G43.919 Migraine, unspecified, intractable, without status migrainosus (principal)
CPT/HCPCS: 70551

== ENCOUNTER 2020-06-12 23:57 | Emergency (ER) | payer OTHER, SELFPAY ==
--- NOTE | 2020-06-13 | ECG_ITS ---
APPROVED REPORT Exam: Resting ECG HR:92 bpm ECG Measurements Heart Rate 92 AXES HI 154 P 75 QRSd 76 QRS 79 QT 372 T 51 QTc 460 Conclusion Normal sinus rhythm Normal ECG Electronically signed by : Mark Finch, 06/13/2020 07:37:08
[2020-06-13 00:14] VITALS: BP 133/94; PULSE 96; RESP 18; TEMP 36.8; O2SAT 100; BMI 23.2
[2020-06-13 00:15] VITALS: BMI 26.7
--- NOTE | 2020-06-13 00:16 | CT_ITS ---
PROCEDURE: CT ANGIO CHEST CLINCIAL INDICATION: chest pain COMPARISON: No exams were available for comparison TECHNIQUE: IV Contrast: 70ML Isovue 370 Axial images obtained with sagittal and coronal reformats. All CT scans at the facility use one or more dose reduction, viz: automated exposure control, ma/kV adjustment per patient size (including targeted exams where dose is matched to indication, i.e. head), or iterative reconstruction technique. FINDINGS: HEART AND MEDIASTINAL STRUCTURES: Excellent vascular opacification. Cardiac size is normal. There is no pericardial effusion.2 There is no aortic dissection and there is no CT evidence of pulmonary emboli.. LUNGS AND PLEURAL SPACES: The lung worthy are well-expanded and appear clear. There is no pleural fluid. BONY STRUCTURES: No acute bony abnormalities apparent. UPPER ABDOMEN: Unremarkable. ADDITIONAL FINDINGS: No other significant abnormalities. IMPRESSION: Negative CT angiogram of the chest Dictated by: Dr. Jese Mcintyre MD 06/13/2020 09:56 Dr. Jese Mcintyre MD in [facility] 06/13/2020 09:56
--- NOTE | 2020-06-13 00:16 | XR_ITS ---
PROCEDURE: XR CHEST PORTABLE CLINICAL HISTORY: chest pain COMPARISON: CR CXR2V XR chest 2V from 01/07/2018 CR CXR2V XR chest 2V from 07/07/2018 CR XR CHEST PORTABLE from 07/19/2019 FINDINGS: The cardiomediastinal silhouette and pulmonary vascularity are within normal limits. The lungs are clear without infiltrates, suspicious nodules, or pleural effusions. No acute bony abnormalities. IMPRESSION: No acute findings. Dictated by: Dr. Jese Mcintyre MD 06/13/2020 09:17 Dr. Jese Mcintyre MD in [facility] 06/13/2020 09:17
[2020-06-13 00:23] LABS: Urine Pregnancy, HCG Qual. Negative (Negative)
[2020-06-13 00:24] LABS: Microscopic, Urine URINE MICROSCOPIC (MICROSCOPIC)
[2020-06-13 00:26] LABS: Anion Gap 12.3 mEq/L (5-15); Blood Urea Nitrogen 7 mg/dl (7-17); Calcium 9.7 mg/dl (8.4-10.2); Carbon Dioxide 27 mmol/L (22.0-30.0); Chloride 102 mmol/L (98-107); Creatinine Clearance Estimated 118 mL/min (50-200); Estimated Glomerular Filt Rate 89 ml/min (>60); GFR (African American) 108 ML/MIN (>60); Glucose 98 mg/dl (74-100); Potassium 3.3 mmoL/L (3.5-5.1); Sodium 138 mmol/L (136-145)
[2020-06-13 00:27] LABS: Appearance,Urine CLEAR (Clear); Basophils # 0.1 K/mm3 (0-0.2); Basophils % 0.9 % (0.1-2.0); Bilirubin,Urine Negative (Negative); Blood, Urine 2+ (Negative); Color,Urine YELLOW (Yellow); Eosinophils # 0.2 K/mm3 (0.0-0.4); Eosinophils % 2.2 % (0.1-12.0); Glucose,Urine (UA) Negative (Negative); Hematocrit 46.4 % (37.0-47.0); Hemoglobin 14.7 g/dL (12.2-16.2); Ketones,Urine Negative (Negative); Leukocyte Esterase,Urine Negative (Negative); Lymphocytes % 41.1 % (10-50); Mean Corpuscular HGB Conc 31.7 g/dL (31.8-35.4); Mean Corpuscular Hemoglobin 29.7 pg (27.0-31.2); Mean Corpuscular Volume 93.7 fl (81-99); Monocytes # 0.4 K/mm3 (0.1-1.0); Neutrophils # 3.6 K/mm3 (1.8-7.8); Neutrophils % 49.8 % (37.0-80.0); Nitrate,Urine Negative (Negative); Platelet Count 376 K/mm3 (142-424); Protein,Urine Negative (Negative); Red Blood Count 4.96 M/mm3 (4.20-5.40); Red Cell Distribution Width 12.4 % (11.5-17.5); Urobilinogen,Urine 0.2 EU/dl (0.2); White Blood Count 7.3 K/mm3 (4.8-10.8)
--- NOTE | 2020-06-13 00:41 | HMH.EDCP ---
ED Disposition Clinical Impression: Atypical chest pain, Vasovagal episode Hypothyroidism Qualifiers: Hypothyroidism type: acquired Qualified Code(s): E03.9 - Hypothyroidism, unspecified Disposition: Home, Self-Care Condition on Discharge: Good Instructions: DI for Atypical Chest Pain Additional Instructions: see card for follow up brice Referrals: PCP,No [Primary Care Provider] - Bandar Palacios MD [Staff Physician] - - Critical Care Critical Care Time: No Attestation: On 06/12/20, the high probability of a clinically significant, sudden or life threatening deterioration of the following system(s) required my full and direct attention, intervention and personal management. The time I documented below is in addition to time spent performing reported procedures but includes the following listed in this critical care notation. Medical Decision Making - Medical Records Medical records reviewed: Yes: I reviewed the patient's medical records. - Floyd Inquiry Pt receiving controlled substance: No Vital Signs: 06/13/20 00:14 06/13/20 01:31 Temperature 98.3 F Temperature Source Oral Pulse Rate [Apical] 96 H 98 H Respiratory Rate 18 Blood Pressure [Right Arm] 133/94 H 137/87 Blood Pressure Mean [Right Arm] 107 103 Blood Pressure Source [Right Arm] Automatic Cuff Automatic Cuff Blood Pressure Position [Right Arm] Supine Standing 02 Sat by Pulse Oximetry 100 Oxygen Delivery Method Room Air - Lab Data Lab results reviewed: Yes: I reviewed the patient's lab results. Lab Results 06/13/20 00:05: WBC 7.3, RBC 4.96, Hgb 14.7, Hct 46.4, MCV 93.7, MCH 29.7, MCHC 31.7 L, RDW 12.4, Plt Count 376, MPV 8.0, Neut % (Auto) 49.8, Lymph % (Auto) 41.1, [place] % (Auto) 6.0, Eos % (Auto) 2.2, Baso % (Auto) 0.9, Neut # (Auto) 3.6, Lymph # (Auto) 3.0, [place] # (Auto) 0.4, Eos # (Auto) 0.2, Baso # (Auto) 0.1, ESR 5 06/13/20 00:05: Sodium 138, Potassium 3.3 L, Chloride 102, Carbon Dioxide 27, Anion Gap 12.3, BUN 7, Creatinine 0.80, Estimated Creat Clear 118, Estimated GFR 89, Est GFR ( Amer) 108, Glucose 98, Calcium 9.7, Troponin I < 0.01, C-Reactive Protein 0.5, TSH 6.82 H, Thyroxine (T4) 10.6 06/13/20 00:05: Urine Color Yellow, Urine Appearance Clear, Urine pH 8.0, Ur Specific [place] 1.020, Urine Protein Negative, Urine Glucose (UA) Negative, Urine Ketones Negative, Urine Blood 2+, Urine Nitrate Negative, Urine Bilirubin Negative, Urine Urobilinogen 0.2, Ur Leukocyte Esterase Negative, Urine RBC 5-10, Urine WBC 10-20, Ur Squamous Epith Cells 5-10, Urine Bacteria 1+ 06/13/20 00:05: Urine HCG, Qual Negative 06/13/20 00:05: Urine Opiates Screen Negative, Urine Methadone Screen Negative, Ur Barbituates Screen Positive H, Ur Phencyclidine Scrn Negative, Ur Amphetamines Screen Negative, U Benzodiazepines Scrn Negative, Urine Cocaine Screen Negative, U Marijuana (THC) Screen Negative Result diagrams: 06/13/20 00:05 06/13/20 00:05 Orders (Tests/Meds): ED MEDICATIONS Generic Name Dose Route Start Last Admin Trade Name Freq PRN Reason Stop Dose Admin Sodium Chloride 1,000 mls @ 999 mls/hr 06/13/20 01:45 06/13/20 01:37 Sod Chlor 0.9% 1000ml Bag IV 06/13/20 02:45 999 mls/hr .Q1H1M KORINA Administration Discontinued Medications Generic Name Dose Route Start Last Admin Trade Name Freq PRN Reason Stop Dose Admin Iopamidol 70 ml 06/13/20 01:23 06/13/20 00:45 Iopamidol-370 (76%);100ml Bottle IV 06/13/20 01:24 70 ml ONCE ONE Administration Ketorolac Tromethamine 30 mg 06/13/20 01:20 06/13/20 01:36 Ketorolac 30mg/Ml Vial IV 06/13/20 01:21 30 mg ONCE ONE Administration Sodium Chloride 40 ml 06/13/20 01:23 06/13/20 00:45 0.9 % Sodium Chloride 50 Ml Vial IV 06/13/20 01:24 40 ml ONCE ONE Administration Sodium Chloride 10 ml 06/13/20 01:23 06/13/20 00:45 Sodium Chloride 0.9% 10ml Syr (Rad Only) IV 06/13/20 01:24 10 ml ONCE ONE Administration ORDERS Category Date Ton
[2020-06-13 00:46] LABS: T4 (Thyroxine) 10.6 ug/dl (5.53-11.0); Troponin I < 0.01 ng/ml (0.00-0.034)
[2020-06-13 00:50] LABS: Erythrocyte Sedimentation Rate 5 mm/hr (0-20)
[2020-06-13 00:57] LABS: Thyroid Stimulating Hormone 6.82 uIU/mL (0.465-4.68)
[2020-06-13 00:58] LABS: Bacteria,Urine 1+ /lpf
[2020-06-13 01:08] LABS: Amphetamine/Metha Screen,Urine Negative ng/ml (<1000)
[2020-06-13 01:09] LABS: Barbiturates Screen,Urine Positive ng/ml (<200); Benzodiazepines Screen,Urine Negative ng/ml (<200)
[2020-06-13 01:10] LABS: Cannabinoid Screen,Urine Negative ng/ml (<50)
[2020-06-13 01:11] LABS: Cocaine Screen,Urine Negative ng/ml (<300); Methadone Screen,Urine Negative ng/ml (<300)
[2020-06-13 01:12] LABS: Opiate Screen,Urine Negative ng/ml (<300)
[2020-06-13 01:13] LABS: Phencyclidine Screen,Urine Negative ng/ml (<25)
[2020-06-13 01:31] VITALS: BP 127/90; BP 131/87; BP 137/87; PULSE 72; PULSE 84; PULSE 98
[2020-06-13 01:37] LABS: C-Reactive Protein 0.5 mg/L (0-4)
[2020-06-13 02:12] VITALS: BP 121/71; PULSE 71; RESP 15; TEMP 36.8; O2SAT 99
== END 2020-06-13 02:16 | disposition home or self-care (01) ==
PROVIDERS: Emergency Provider Emergency Medicine
DX: R07.89 Other chest pain (principal); E03.9 Hypothyroidism, unspecified; G43.709 Chronic migraine without aura, not intractable, without status migrainosus; F41.8 Other specified anxiety disorders; F17.210 Nicotine dependence, cigarettes, uncomplicated; Z88.5 Allergy status to narcotic agent; Z79.899 Other long term (current) drug therapy
CPT/HCPCS: 71045; 71275; 80048; 80305; 81001; 81025; 84436; 84443; 84484; 85025; 85651; 86140; 87086; 93005; 96365; 96375; 99283; Q9967

== ENCOUNTER → 2020-06-18 14:12 | Outpatient (CLI) | payer OTHER, SELFPAY ==
--- NOTE | 2020-06-18 14:18 | CA_ITS ---
APPROVED REPORT EXAM: Comprehensive 2D, Doppler, and color-flow Echocardiogram Industrial Design Intern: Stacia Lovell RVT Ht: 5 ft 3 in Wt: 132lbs BSA: 1.62 BP: 105/60 mmHg Indications: SOA,ABN EKG,NEAR SYNCOPE,DIZZINESS,SMOKER 2D Dimensions LVOT 1.65 cm (M/F) 1.5-2.5 LA Volume 7.80 mL LA Volume Index 4.81 mL/m2 (M/F) 16-34 M-Mode Dimensions RVDd 1.47 cm (0.9-2.6) LA Diam 2.18 cm (1.9-4.0) LVDd 3.64 cm (3.5-5.7) Ao Diam 2.27 cm (2.0-3.7) LVDs 2.63 cm (3.5-5.7) IVSd 0.54 cm (0.6-1.1) PWd 0.96 cm (0.6-1.1) EF (Teich) 54.70% FS 27.70% EDV (Teich) 55.90 mL ESV (Teich) 25.30 mL LV Diastology E Decel Time 213.00 (160-240 msec) E/A Ratio 1.3 MED E' 11.30 (< 7 cm/sec) E'/MED E' Ratio 7.37 (>14) LAT E' 19.50 (<10 cm/sec) E/LAT E' Ratio 4.27 (>14) Aortic Valve AO Peak GR. 3.00 mmHg Mitral Valve MV E Max Clement. 83.00 (40-130 cm/s) MV A Velocity 66.00 (40-130 cm/s) E/A Ratio 1.27 MV Decel. Time 213.00 (160-240 ms) MV PHT 62.00 ms Pulmonary Valve PV Peak Velocity 76.00 (50-150 cm/s) Tricuspid Valve TR P. Velocity 186.00 cm/s RAP Estimate 10.00 mmHg RVSP 23.90 mmHg Left Ventricle Left atrium is normal size, left ventricle is normal size, there is preserved left ventricular systolic function, visually estimated ejection fraction 55% with no regional wall motion abnormality, diastolic parameters are within normal range, there is no concentric left ventricular hypertrophy. Right Ventricle Right atrium and right ventricle are normal size and contractility. Aortic Valve Aortic valve is grossly normal, there is no aortic stenosis or aortic insufficiency. Mitral Valve Mitral valve is grossly normal, there is trace mitral regurgitation. Tricuspid Valve Tricuspid valve is grossly normal, there is trace tricuspid regurgitation, tricuspid regurgitation jet velocity is inadequate for calculation of the right ventricular systolic pressure. Pulmonic Valve Pulmonic valve is poorly visualized. Great Vessels Aortic root is normal size. Pericardium No significant pericardial effusion noted. Conclusion 1. Normal left ventricular size, preserved left ventricular systolic function, visually estimated ejection fraction 55% with no regional wall motion abnormality, diastolic parameters are within normal range. 2. Trace mitral and tricuspid regurgitation. 3. No significant pericardial effusion noted. Electronically signed by : Alcon Lanza, 06/18/2020 18:58:06
[2020-06-18 15:39] LABS: Anion Gap 12.8 mEq/L (5-15); Blood Urea Nitrogen 10 mg/dl (7-17); Calcium 9.6 mg/dl (8.4-10.2); Carbon Dioxide 22 mmol/L (22.0-30.0); Chloride 107 mmol/L (98-107); Estimated Glomerular Filt Rate 89 ml/min (>60); GFR (African American) 108 ML/MIN (>60); Glucose 92 mg/dl (74-100); Potassium 4.8 mmoL/L (3.5-5.1); Sodium 137 mmol/L (136-145)
== END ==
PROVIDERS: PCP Physician Assistant; Visit Provider Urology
DX: R07.9 Chest pain, unspecified (principal); R42 Dizziness and giddiness; R55 Syncope and collapse; R94.31 Abnormal electrocardiogram [ECG] [EKG]; E87.6 Hypokalemia
CPT/HCPCS: 36415; 80048; 93306

== ENCOUNTER → 2020-09-13 13:45 | Outpatient (CLI) | payer OTHER, SELFPAY ==
[2020-09-13 13:58] LABS: Basophils % 0.7 % (0.1-2.0); Eosinophils # 0.1 K/mm3 (0.0-0.4); Eosinophils % 1.5 % (0.1-12.0); Hematocrit 41.6 % (37.0-47.0); Hemoglobin 13.8 g/dL (12.2-16.2); Lymphocytes # 1.5 K/mm3 (0.7-4.5); Lymphocytes % 30.2 % (10-50); Mean Corpuscular HGB Conc 33.2 g/dL (31.8-35.4); Mean Corpuscular Hemoglobin 29.1 pg (27.0-31.2); Mean Corpuscular Volume 87.9 fl (81-99); Mean Platelet Volume 7.9 fl (7.4-10.4); Monocytes # 0.4 K/mm3 (0.1-1.0); Monocytes % 8.5 % (1.7-9.3); Neutrophils # 2.9 K/mm3 (1.8-7.8); Neutrophils % 59.1 % (37.0-80.0); Platelet Count 331 K/mm3 (142-424); Red Blood Count 4.73 M/mm3 (4.20-5.40); Red Cell Distribution Width 12.6 % (11.5-17.5); White Blood Count 4.9 K/mm3 (4.8-10.8)
[2020-09-13 14:02] LABS: Chloride 106 mmol/L (98-107); Sodium 137 mmol/L (136-145)
[2020-09-13 14:03] LABS: Potassium 4.4 mmoL/L (3.5-5.1)
[2020-09-13 14:05] LABS: Alanine Aminotransferase 17 U/L (12-78); Albumin Level 4.4 g/dl (3.5-5.0); Alkaline Phosphatase 58 U/L (38-126); Anion Gap 12.4 mEq/L (5-15); Aspartate Amino Transferase 21 U/L (14-36); Bilirubin,Total 0.8 mg/dl (0.2-1.3); Blood Urea Nitrogen 11 mg/dl (7-17); Carbon Dioxide 23 mmol/L (22.0-30.0); Estimated Glomerular Filt Rate 62 ml/min (>60); GFR (African American) 74 ML/MIN (>60); Globulin 2.2 g/dL (1.3-3.2); Total Protein,Serum 6.6 g/dl (6.3-8.2)
[2020-09-13 14:06] LABS: Calcium 9.8 mg/dl (8.4-10.2); Chol/HDL Ratio 2.6 (1-3.5); Cholesterol 205 mg/dl (140-200); Glucose 76 mg/dl (74-100); HDL Cholesterol 79 mg/dl (40-60); Triglycerides 66 mg/dl (30-150); VLDL Cholesterol 13 mg/dL (0-40)
[2020-09-13 14:22] LABS: 25-OH Vitamin D, Total 69.1 ng/mL (30-100)
[2020-09-13 14:36] LABS: Thyroid Stimulating Hormone 0.49 uIU/mL (0.465-4.68)
[2020-09-13 14:51] LABS: Free T4 (Free Thyroxine) 1.86 ng/dl (0.78-2.19)
[2020-09-13 15:21] LABS: Vitamin B12 745 pg/mL (239-931)
[2020-09-13 15:48] LABS: Folate > 20.00 ng/mL
[2020-09-13 15:52] LABS: HCG Qualitative, Serum Negative (Negative)
== END ==
PROVIDERS: Visit Provider Physician Assistant
DX: E03.9 Hypothyroidism, unspecified (principal); E55.9 Vitamin D deficiency, unspecified; E78.5 Hyperlipidemia, unspecified; F32.9 Major depressive disorder, single episode, unspecified; F41.9 Anxiety disorder, unspecified; R53.83 Other fatigue
CPT/HCPCS: 80053; 80061; 82306; 82607; 82746; 84439; 84443; 84703; 85025

== ENCOUNTER → 2020-09-27 15:42 | Outpatient (CLI) | payer OTHER, SELFPAY | PROVIDERS: PCP Physician Assistant; Visit Provider Physician Assistant | DX: G47.30 Sleep apnea, unspecified (principal); R53.83 Other fatigue; R40.0 Somnolence | CPT/HCPCS: 95806 ==

== ENCOUNTER → 2020-10-22 17:41 | Outpatient (CLI) | payer OTHER, SELFPAY | PROVIDERS: PCP Physician Assistant; Visit Provider Physician Assistant | DX: Z20.822 Contact with and (suspected) exposure to COVID-19 (principal) | CPT/HCPCS: U0003 ==

== ENCOUNTER → 2020-12-20 08:25 | Outpatient (CLI) | payer OTHER, SELFPAY ==
[2020-12-20 09:12] LABS: Basophils # 0.1 K/mm3 (0-0.2); Basophils % 1.3 % (0.1-2.0); Eosinophils # 0.1 K/mm3 (0.0-0.4); Eosinophils % 1.9 % (0.1-12.0); Hematocrit 42.9 % (37.0-47.0); Hemoglobin 14.1 g/dL (12.2-16.2); Lymphocytes # 1.9 K/mm3 (0.7-4.5); Lymphocytes % 31.8 % (10-50); Mean Corpuscular HGB Conc 32.8 g/dL (31.8-35.4); Mean Corpuscular Hemoglobin 29.3 pg (27.0-31.2); Mean Corpuscular Volume 89.3 fl (81-99); Mean Platelet Volume 8.2 fl (7.4-10.4); Monocytes # 0.3 K/mm3 (0.1-1.0); Monocytes % 5.4 % (1.7-9.3); Neutrophils # 3.6 K/mm3 (1.8-7.8); Neutrophils % 59.6 % (37.0-80.0); Platelet Count 421 K/mm3 (142-424); Red Blood Count 4.81 M/mm3 (4.20-5.40); Red Cell Distribution Width 12.9 % (11.5-17.5)
[2020-12-20 09:34] LABS: Chloride 103 mmol/L (98-107); Potassium 4.4 mmoL/L (3.5-5.1); Sodium 137 mmol/L (136-145)
[2020-12-20 09:37] LABS: Alanine Aminotransferase 9 U/L (12-78); Albumin Level 3.8 g/dl (3.5-5.0); Albumin/Globulin Ratio 1.5 (1.1-1.8); Alkaline Phosphatase 72 U/L (38-126); Anion Gap 13.4 mEq/L (5-15); Aspartate Amino Transferase 18 U/L (14-36); Bilirubin,Total 0.3 mg/dl (0.2-1.3); Blood Urea Nitrogen 7 mg/dl (7-17); Calcium 9.2 mg/dl (8.4-10.2); Carbon Dioxide 25 mmol/L (22.0-30.0); Cholesterol 219 mg/dl (140-200); Estimated Glomerular Filt Rate 89 ml/min (>60); GFR (African American) 108 ML/MIN (>60); Globulin 2.6 g/dL (1.3-3.2); Glucose 84 mg/dl (74-100); Total Protein,Serum 6.4 g/dl (6.3-8.2); Triglycerides 155 mg/dl (30-150); VLDL Cholesterol 31 mg/dL (0-40)
[2020-12-20 09:38] LABS: Chol/HDL Ratio 2.5 (1-3.5); HDL Cholesterol 89 mg/dl (40-60)
[2020-12-20 09:48] LABS: Direct LDL Cholesterol 104.25 mg/dL (100-129)
[2020-12-20 09:56] LABS: 25-OH Vitamin D, Total 53.6 ng/mL (30-100); Free T4 (Free Thyroxine) 1.37 ng/dl (0.78-2.19)
[2020-12-20 10:09] LABS: Thyroid Stimulating Hormone 0.47 uIU/mL (0.465-4.68)
== END ==
PROVIDERS: Visit Provider Physician Assistant
DX: E03.9 Hypothyroidism, unspecified (principal); E55.9 Vitamin D deficiency, unspecified; E78.5 Hyperlipidemia, unspecified; R53.83 Other fatigue; R79.89 Other specified abnormal findings of blood chemistry
CPT/HCPCS: 36415; 80053; 80061; 82306; 84439; 84443; 85025

== ENCOUNTER 2021-02-25 15:45 | Emergency (ER) | payer OTHER, SELFPAY ==
[2021-02-25 17:00] VITALS: BP 134/83; PULSE 106; RESP 20; TEMP 36.9; O2SAT 100; BMI 26.2
[2021-02-25 17:00] LABS: UTC Strep Screen (Rapid) Positive (Negative)
--- NOTE | 2021-02-25 17:12 | HMH.EDUTC ---
[facility] [place] Disposition Clinical Impression: Strep throat Disposition: Home, Self-Care Condition on Discharge: Good Instructions: Strep Throat, DI for Strep Throat Additional Instructions: Drink plenty of fluids. Take tylenol or ibuprofen for pain or fever. Take the medications as directed. Follow up with your regular doctor. GO TO THE ER FOR ANY WORSENING SYMPTOMS Throw your tooth brush away and get a new one. Quarantine until you know the results of your covid-19 test. If it is positive, the health department should call you and give you further instructions about your length of Quarantine and other things. Notify your school or workplace of your results and follow their instructions regarding return to work/school. Prescriptions: Brompheniramine/Pseudoephed/Dm [Bromfed Dm Cough Syrup] 5 ml PO Q6HP PRN #240 ml PRN Reason: Cough Transmission Status: Received by [facility] Ondansetron [Zofran 4mg ODT] 4 mg PO Q8HP PRN #20 tab PRN Reason: Nausea Transmission Status: Received by [facility] Amoxicillin [Amoxicillin 500mg Tab] 500 mg PO TID 10 Days #30 tab Transmission Status: Received by [facility] predniSONE [Deltasone 10mg tablet] 10 mg PO BID 3 Days #6 tab Transmission Status: Received by [facility] Referrals: Shaina Diaz PA [Primary Care Provider] - Forms: Work/School Release Time of Disposition: 17:32 Medical Decision Making - Medical Records Medical records reviewed: No: I reviewed the patient's medical records. - Floyd Inquiry Pt receiving controlled substance: No Vital Signs: 02/25/21 17:00 02/25/21 17:33 Temperature 98.4 F 98.4 F Temperature Source Oral Pulse Rate 106 H Pulse Rate [Right Brachial] 106 H Respiratory Rate 20 20 Blood Pressure 134/83 Blood Pressure [Right Arm] 134/83 Blood Pressure Mean [Right Arm] 100 Blood Pressure Source [Right Arm] Automatic Cuff Blood Pressure Position [Right Arm] Sitting 02 Sat by Pulse Oximetry 100 Oxygen Delivery Method Room Air - Lab Data Lab results reviewed: Yes: I reviewed the patient's lab results. Lab Results 02/25/21 16:55: Strep Scn Rapid Clinic Positive A [facility] HPI - General Stated complaint: covid symptoms/ test strep test Time Seen by Provider: 02/25/21 17:12 - History of Present Illness Provider Complaint: She c/o sore throat and feeling very bad for the past 2 days. She has had some chilling and low grade fever also. She has been vaccinated against covid-19. 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 - Related Data Home Medications Medication Instructions Recorded Confirmed isotretinoin 30 mg capsule 30 mg PO DAILY cap 02/14/21 02/14/21 levothyroxine 125 mcg tablet 125 mcg PO DAILY tab 02/14/21 Previous Rx's Medication Instructions Recorded rimegepant 75 mg disintegrating 75 mg PO ONCE PRN #8 tab 12/16/20 tablet fluoxetine 40 mg capsule See Rx Instructions .ROUTE 12/26/20 .COMPLEX #90 cap biotin 10,000 mcg capsule 10,000 mcg PO DAILY #30 cap 01/18/21 [id number]-Pp-shdg-minerals 27 1 tab PO .qd #30 tab 01/18/21 mg-0.4 mg tablet drospirenone 3 mg-ethinyl See Rx Instructions .ROUTE 01/24/21 estradiol 0.02 mg tablet .COMPLEX #28 tab amitriptyline 10 mg tablet 20 mg PO HS 30 Days #60 tab 02/14/21 Amoxicillin [Amoxicillin 500mg Tab] 500 mg PO TID 10 Days #30 tab 02/25/21 Brompheniramine/Pseudoephed/Dm 5 ml PO Q6HP PRN #240 ml 02/25/21 [Bromfed Dm Cough Syrup] Ondansetron [Zofran 4mg ODT] 4 mg PO Q8HP PRN #20 tab 02/25/21 predniSONE [Deltasone 10mg tablet] 10 mg PO BID 3 Days #6 tab 02/25/21 Allergies Allergy/AdvReac Type Severity Reaction Status Date / Time morphine [MORPHINE] Allergy Unknown Verified 02/14/21 10:49 [facility] History - Hepatitis A Screen Attestation statement:: This patient has been screened for Hepatitis A risk factors. I have reviewed the patient's past medical hist
[2021-02-25 17:33] VITALS: BP 134/83; PULSE 106; RESP 20; TEMP 36.9; O2SAT 100
== END 2021-02-25 17:40 | disposition home or self-care (01) ==
PROVIDERS: Emergency Provider Nurse Practitioner Family; PCP Physician Assistant
DX: J02.0 Streptococcal pharyngitis (principal); E03.9 Hypothyroidism, unspecified; F41.8 Other specified anxiety disorders; G43.709 Chronic migraine without aura, not intractable, without status migrainosus; Z79.899 Other long term (current) drug therapy
CPT/HCPCS: 87880; 99202; C9803; G0463; U0003; U0005

== ENCOUNTER → 2021-03-27 06:28 | Outpatient (CLI) | payer OTHER, SELFPAY ==
[2021-03-27 06:54] LABS: Microscopic, Urine URINE MICROSCOPIC (MICROSCOPIC)
[2021-03-27 07:24] LABS: Appearance,Urine CLEAR (Clear); Bilirubin,Urine Negative (Negative); Blood, Urine 3+ (Negative); Color,Urine YELLOW (Yellow); Glucose,Urine (UA) Negative (Negative); Ketones,Urine Negative (Negative); Leukocyte Esterase,Urine Negative (Negative); Nitrate,Urine Negative (Negative); PH,Urine 6.5 (5.0-8.5); Protein,Urine Negative (Negative); Specific Gravity, Urine 1.025 (1.005-1.030); Urobilinogen,Urine 0.2 EU/dl (0.2)
[2021-03-27 07:58] LABS: Amorphous Sediment,Urine 1+ /lpf
[2021-03-27 08:21] LABS: Chloride 103 mmol/L (98-107); Potassium 4.2 mmoL/L (3.5-5.1); Sodium 138 mmol/L (136-145)
[2021-03-27 08:24] LABS: Anion Gap 12.2 mEq/L (5-15); Blood Urea Nitrogen 8 mg/dl (7-17); Calcium 9.6 mg/dl (8.4-10.2); Carbon Dioxide 27 mmol/L (22.0-30.0); Estimated Glomerular Filt Rate 104 ml/min (>60); GFR (African American) 125 ML/MIN (>60); Glucose 79 mg/dl (74-100)
== END ==
PROVIDERS: PCP Physician Assistant; Visit Provider Physician Assistant
DX: R39.9 Unspecified symptoms and signs involving the genitourinary system (principal); N28.9 Disorder of kidney and ureter, unspecified
CPT/HCPCS: 36415; 80048; 81001

== ENCOUNTER → 2021-04-24 14:24 | Outpatient (CLI) | payer OTHER, SELFPAY | PROVIDERS: Visit Provider Nurse Practitioner Family | DX: N39.0 Urinary tract infection, site not specified (principal); B95.8 Unspecified staphylococcus as the cause of diseases classified elsewhere | CPT/HCPCS: 87086; 87088; 87186 ==

== ENCOUNTER → 2021-05-07 13:50 | Outpatient (CLI) | payer OTHER, SELFPAY | PROVIDERS: Visit Provider Family Medicine | DX: N39.0 Urinary tract infection, site not specified (principal); B96.89 Other specified bacterial agents as the cause of diseases classified elsewhere | CPT/HCPCS: 87086; 87088 ==

== ENCOUNTER → 2021-05-13 14:26 | Outpatient (CLI) | payer OTHER, SELFPAY ==
[2021-05-13 15:47] LABS: Anion Gap 10.1 mEq/L (5-15); Blood Urea Nitrogen 8 mg/dl (7-17); Calcium 9.7 mg/dl (8.4-10.2); Carbon Dioxide 27 mmol/L (22.0-30.0); Chloride 103 mmol/L (98-107); Estimated Glomerular Filt Rate 88 ml/min (>60); GFR (African American) 107 ML/MIN (>60); Glucose 95 mg/dl (74-100); Potassium 4.1 mmoL/L (3.5-5.1); Sodium 136 mmol/L (136-145)
[2021-05-15 08:14] LABS: HIV Screen 4th Generation wRfx Non Reactive (Non Reactive); HSV 2 IgG, Type Spec <0.91 index (0.00-0.90)
[2021-05-15 09:13] LABS: Hep A Ab, IgM Negative (Negative); Hepatitis B Core Antibody IgM Negative (Negative); Hepatitis B Surface Antigen Negative (Negative); Hepatitis C Antibody 0.1 s/co ratio (0.0-0.9)
[2021-05-15 11:38] LABS: Rapid Plasma Reagin Ab Titer Non Reactive (NonRea<1:1)
[2021-05-16 04:16] LABS: Neisseria gonorrhoeae, NAA Negative (Negative)
== END ==
PROVIDERS: PCP Physician Assistant; Visit Provider Physician Assistant
DX: Z00.00 Encounter for general adult medical examination without abnormal findings (principal); N39.0 Urinary tract infection, site not specified; N76.0 Acute vaginitis; Z87.440 Personal history of urinary (tract) infections; R79.89 Other specified abnormal findings of blood chemistry
CPT/HCPCS: 36415; 80048; 80074; 86592; 86695; 86703; 86790; 87086; 87491; 87591; G0432

== ENCOUNTER → 2021-07-24 16:00 | Outpatient (CLI) | payer OTHER, SELFPAY ==
[2021-07-24 18:48] LABS: Free T4 (Free Thyroxine) 1.17 ng/dl (0.78-2.19)
[2021-07-24 19:03] LABS: Thyroid Stimulating Hormone 0.04 uIU/mL (0.465-4.68)
== END ==
PROVIDERS: Visit Provider Emergency Medicine
DX: E03.9 Hypothyroidism, unspecified (principal)
CPT/HCPCS: 84439; 84443

== ENCOUNTER 2021-08-06 08:59 | Emergency (ER) | payer OTHER, SELFPAY ==
[2021-08-06 09:05] VITALS: BP 140/90; PULSE 87; RESP 18; TEMP 36.8; O2SAT 100; BMI 29.4
--- NOTE | 2021-08-06 09:32 | HMH.EDUTC ---
[facility] [place] Clinical Impression: Otitis media Qualifiers: Otitis media type: suppurative Chronicity: acute Laterality: bilateral Recurrence: non-recurrent Spontaneous tympanic membrane rupture: without spontaneous rupture Qualified Code(s): H66.003 - Acute suppurative otitis media without spontaneous rupture of ear drum, bilateral Pharyngitis Qualifiers: Pharyngitis/tonsillitis etiology: other specified organisms Qualified Code(s): J02.8 - Acute pharyngitis due to other specified organisms Disposition: Home, Self-Care Condition on Discharge: Good Instructions: Sore Throat, Middle Ear Infection, DI for Pharyngitis/Tonsillopharyngitis -- Adult Additional Instructions: Drink plenty of fluids. Take tylenol or ibuprofen for pain or fever. Take the medications as directed. Follow up with your regular doctor. GO TO THE ER FOR ANY WORSENING SYMPTOMS Don't start the oral steroids until tomorrow, since you had the shot here today. The cough medication (promethazine dm) will make you drowsy, so don't drive or operate heavy machinery after taking it. Prescriptions: Promethazine/Dextromethorphan [Promethazine-Dm Syrup] 5 ml PO Q6HP PRN #240 ml PRN Reason: Cough Transmission Status: Received by [facility] Pseudoephedrine HCl 30 mg PO Q6HP PRN #30 tab PRN Reason: Congestion Transmission Status: Received by [facility] Amoxicillin/Potassium Clav [Amox-Clav 875-125 mg Tablet] 1 tab PO BID #20 tab Transmission Status: Received by [facility] methylPREDNISolone [Medrol] 4 mg PO DIRECTED 6 Days #21 packet Transmission Status: Received by [facility] Referrals: Shaina Diaz PA [Primary Care Provider] - Forms: Work/School Release Time of Disposition: 10:03 Medical Decision Making - Floyd Inquiry Pt receiving controlled substance: No Vital Signs: 08/06/21 09:05 08/06/21 09:56 Temperature 98.3 F 98.3 F Temperature Source Oral Pulse Rate 87 Pulse Rate [Right Brachial] 87 Respiratory Rate 18 18 Blood Pressure 140/90 Blood Pressure [Right Arm] 140/90 Blood Pressure Mean [Right Arm] 106 Blood Pressure Source [Right Arm] Automatic Cuff Blood Pressure Position [Right Arm] Sitting 02 Sat by Pulse Oximetry 100 Oxygen Delivery Method Room Air - Lab Data Lab results reviewed: Yes: I reviewed the patient's lab results. Lab Results 08/06/21 09:53: Group A Strep Rapid Negative Orders (Tests/Meds): ED MEDICATIONS Discontinued Medications Generic Name Dose Route Start Last Admin Trade Name Bobbi PRN Reason Stop Dose Admin Ceftriaxone Sodium 1 gm 08/06/21 09:47 08/06/21 09:50 Ceftriaxone 1gm Vial IM 08/06/21 09:48 1 gm ONCE ONE Administration Lidocaine HCl 0 ml 08/06/21 09:47 08/06/21 09:50 Lidocaine 1% 5ml Pf Vial IM 08/06/21 09:48 2 ml ONCE ONE Administration Methylprednisolone Sodium Succinate 125 mg 08/06/21 09:47 08/06/21 09:50 Methylprednisolone Sod Succ 125mg Vial IM 08/06/21 09:48 125 mg ONCE ONE Administration ORDERS Category Date Time Status Strep Screen Confirmation Stat Micro 08/06/21 09:53 [place] [facility] [place] - General Stated complaint: lt ear pain, sore throat Time Seen by Provider: 08/06/21 09:15 Mode of Arrival: Ambulatory Source of Information: Patient Limitations: No Limitations Description of Symptoms (Recalled from Triage Doc. by RN): PATIENT C/O LEFT EAR PAIN AND SORE THROAT SINCE LAST NIGHT HEENT Symptoms (Recalled from RN notes): Yes Resp Symptoms (Recalled from RN notes): No Skin Symptoms (Recalled from RN notes): No MS Symptoms (Recalled from RN notes): No Functional Status (Recalled from RN notes): WNL - History of Present Illness Provider Complaint: She has felt bad for the past 2 days. She has been running a fever up to 101, have moderate to severe left ear pain at times, body aches, n/v, and feeling very bad. - Rela
[2021-08-06 09:56] VITALS: BP 140/90; PULSE 87; RESP 18; TEMP 36.8; O2SAT 100
[2021-08-06 10:23] LABS: Strep Scrn Group A (Rapid) Negative (Negative)
== END 2021-08-06 10:35 | disposition home or self-care (01) ==
PROVIDERS: Emergency Provider Nurse Practitioner Family; PCP Physician Assistant
DX: H66.003 Acute suppurative otitis media without spontaneous rupture of ear drum, bilateral (principal); J02.8 Acute pharyngitis due to other specified organisms; F41.8 Other specified anxiety disorders; E03.9 Hypothyroidism, unspecified; F17.210 Nicotine dependence, cigarettes, uncomplicated
CPT/HCPCS: 87430; 96372; 99212; G0463; J0696

== ENCOUNTER → 2021-09-02 11:18 | Outpatient (CLI) | payer OTHER, SELFPAY ==
[2021-09-02 13:29] LABS: Basophils # 0.2 K/mm3 (0-0.2); Basophils % 2.4 % (0.1-2.0); Eosinophils # 0.3 K/mm3 (0.0-0.4); Eosinophils % 3.8 % (0.1-12.0); Hematocrit 43.9 % (37.0-47.0); Hemoglobin 14.7 g/dL (12.2-16.2); Lymphocytes # 1.8 K/mm3 (0.7-4.5); Lymphocytes % 26.5 % (10-50); Mean Corpuscular HGB Conc 33.5 g/dL (31.8-35.4); Mean Corpuscular Hemoglobin 30.8 pg (27.0-31.2); Mean Platelet Volume 8.4 fl (7.4-10.4); Monocytes # 0.6 K/mm3 (0.1-1.0); Monocytes % 8.8 % (1.7-9.3); Neutrophils # 3.9 K/mm3 (1.8-7.8); Neutrophils % 58.6 % (37.0-80.0); Platelet Count 376 K/mm3 (142-424); Red Blood Count 4.77 M/mm3 (4.20-5.40); Red Cell Distribution Width 12.8 % (11.5-17.5); White Blood Count 6.6 K/mm3 (4.8-10.8)
[2021-09-02 13:37] LABS: Alanine Aminotransferase 20 U/L (12-78); Albumin/Globulin Ratio 1.8 (1.1-1.8); Alkaline Phosphatase 75 U/L (38-126); Anion Gap 9.5 mEq/L (5-15); Aspartate Amino Transferase 25 U/L (14-36); Bilirubin,Total 0.5 mg/dl (0.2-1.3); Blood Urea Nitrogen 6 mg/dl (7-17); Calcium 9.2 mg/dl (8.4-10.2); Carbon Dioxide 24 mmol/L (22.0-30.0); Chloride 109 mmol/L (98-107); Chol/HDL Ratio 3.1 (1-3.5); Cholesterol 218 mg/dl (140-200); Estimated Glomerular Filt Rate 103 ml/min (>60); GFR (African American) 124 ML/MIN (>60); Globulin 2.2 g/dL (1.3-3.2); Glucose 79 mg/dl (74-100); HDL Cholesterol 71 mg/dl (40-60); Potassium 3.5 mmoL/L (3.5-5.1); Sodium 139 mmol/L (136-145); Total Protein,Serum 6.2 g/dl (6.3-8.2); Triglycerides 186 mg/dl (30-150); VLDL Cholesterol 37 mg/dL (0-40)
[2021-09-02 13:48] LABS: Direct LDL Cholesterol 97.38 mg/dL (100-129)
[2021-09-02 13:54] LABS: 25-OH Vitamin D, Total 77.7 ng/mL (30-100)
== END ==
PROVIDERS: PCP Family Medicine; Visit Provider Family Medicine
DX: E03.9 Hypothyroidism, unspecified (principal); E66.3 Overweight; Z68.29 Body mass index [BMI] 29.0-29.9, adult
CPT/HCPCS: 80053; 80061; 82306; 84443; 85025

== ENCOUNTER → 2021-09-27 14:20 | Outpatient (CLI) | payer OTHER, SELFPAY ==
[2021-09-27 16:13] LABS: Free T4 (Free Thyroxine) 1.38 ng/dl (0.78-2.19)
[2021-09-27 16:26] LABS: Thyroid Stimulating Hormone 0.57 uIU/mL (0.465-4.68)
[2021-09-29 10:51] LABS: HIV Screen 4th Generation wRfx Non Reactive (Non Reactive); HSV 2 IgG, Type Spec <0.91 index (0.00-0.90); Hepatitis B Surface Antigen Negative (Negative); Hepatitis C Antibody 0.1 s/co ratio (0.0-0.9)
[2021-09-30 22:07] LABS: Neisseria gonorrhoeae, NAA Negative (Negative)
== END ==
PROVIDERS: PCP Physician Assistant; Visit Provider Obstetrics & Gynecology
DX: Z20.2 Contact with and (suspected) exposure to infections with a predominantly sexual mode of transmission (principal)
CPT/HCPCS: 36415; 84439; 84443; 86695; 86703; 86790; 87340; 87380; 87491; 87591; G0432

== ENCOUNTER 2021-10-30 22:20 | Emergency (ER) | payer OTHER, SELFPAY ==
[2021-10-30 22:21] VITALS: BP 154/88; PULSE 126; RESP 19; TEMP 37.1; O2SAT 99; BMI 30.2
[2021-10-30 22:35] LABS: Microscopic, Urine URINE MICROSCOPIC (MICROSCOPIC)
[2021-10-30 22:37] LABS: Coronavirus 19, PCR Not Detected (NotDetected); Influenza A, PCR Not Detected (NotDetected); Influenza B, PCR Not Detected (NotDetected)
--- NOTE | 2021-10-30 22:49 | ECG_ITS ---
APPROVED REPORT Exam: Resting ECG HR:115 bpm ECG Measurements Heart Rate 115 AXES VT 167 P 37 QRSd 75 QRS 55 QT 329 T 18 QTc 397 Conclusion SINUS TACHYCARDIA ABNORMAL RHYTHM ECG UNCONFIRMED REPORT Electronically signed by : Mark Finch MD 10/31/2021 17:40:43
[2021-10-30 22:50] LABS: Appearance,Urine CLEAR (Clear); Bilirubin,Urine Negative (Negative); Blood, Urine Negative (Negative); Color,Urine YELLOW (Yellow); Glucose,Urine (UA) Negative (Negative); Ketones,Urine Negative (Negative); Leukocyte Esterase,Urine TRACE (Negative); Nitrate,Urine Negative (Negative); PH,Urine 5.5 (5.0-8.5); Protein,Urine Negative (Negative); Specific Gravity, Urine >= 1.030 (1.005-1.030); Urobilinogen,Urine 0.2 EU/dl (0.2)
--- NOTE | 2021-10-30 22:50 | XR_ITS ---
PROCEDURE INFORMATION: Exam: XR Chest Exam date and time: 10/30/2021 10:46 PM Age: 26 years old Clinical indication: Shortness of breath; Additional info: SOA TECHNIQUE: Imaging protocol: Radiologic exam of the chest. Views: 2 views. COMPARISON: CR XR CHEST PORTABLE 06/13/2020 12:33 AM FINDINGS: Lungs: Unremarkable. No consolidation. Pleural spaces: Unremarkable. No pleural effusion. No pneumothorax. Heart/Mediastinum: Unremarkable. No cardiomegaly. Bones/joints: Unremarkable. IMPRESSION: No acute findings.
--- NOTE | 2021-10-30 22:50 | HMH.EDGENADL ---
ED Disposition Clinical Impression: Urethritis, Palpitations Disposition: Home, Self-Care Condition on Discharge: Good Instructions: DI for Urethritis Additional Instructions: use meds and see pcp for follow up Prescriptions: Minocycline HCl [Minocycline HCl 100mg Tab*] 100 mg PO BID #20 tab Transmission Status: Pending to [facility] Phenazopyridine HCl [Pyridium 200mg Tablet] 200 pow PO TID #6 tab Transmission Status: Pending to [facility] Referrals: Shaina Diaz PA [Primary Care Provider] - - Critical Care Critical Care Time: No Attestation: On 10/30/21, the high probability of a clinically significant, sudden or life threatening deterioration of the following system(s) required my full and direct attention, intervention and personal management. The time I documented below is in addition to time spent performing reported procedures but includes the following listed in this critical care notation. Medical Decision Making - Medical Records Medical records reviewed: Yes: I reviewed the patient's medical records. - Floyd Inquiry Pt receiving controlled substance: No Vital Signs: 10/30/21 22:21 Temperature 98.8 F Temperature Source Oral Pulse Rate [Right] 126 H Respiratory Rate 19 Blood Pressure [Right Arm] 154/88 H Blood Pressure Mean [Right Arm] 110 Blood Pressure Source [Right Arm] Automatic Cuff 02 Sat by Pulse Oximetry 99 Oxygen Delivery Method Room Air - Lab Data Lab results reviewed: Yes: I reviewed the patient's lab results. Lab Results 10/30/21 22:25: Urine Color Yellow, Urine Appearance Clear, Urine pH 5.5, Ur Specific [place] >= 1.030, Urine Protein Negative, Urine Glucose (UA) Negative, Urine Ketones Negative, Urine Blood Negative, Urine Nitrate Negative, Urine Bilirubin Negative, Urine Urobilinogen 0.2, Ur Leukocyte Esterase Trace, Urine WBC 3-5, Ur Squamous Epith Cells 3-5, Calcium Oxalate Crystal 2+, Urine Bacteria 1+, Urine Mucus 1+ 10/30/21 22:25: Urine HCG, Qual Negative 10/30/21 22:30: SARS-CoV-2 (PCR) Not detected, Influenza A Untype (PCR) Not detected, Influenza Type B (PCR) Not detected 10/30/21 22:42: WBC 8.1, RBC 4.90, Hgb 14.7, Hct 43.1, MCV 87.9, MCH 30.0, MCHC 34.2, RDW 12.0, Plt Count 363, MPV 7.4, Neut % (Auto) 59.7, Lymph % (Auto) 30.5, Ray % (Auto) 7.1, Eos % (Auto) 1.8, Baso % (Auto) 0.9, Neut # (Auto) 4.8, Lymph # (Auto) 2.5, Ray # (Auto) 0.6, Eos # (Auto) 0.1, Baso # (Auto) 0.1, ESR 6 10/30/21 22:42: Sodium 138, Potassium 3.5, Chloride 107, Carbon Dioxide 23, Anion Gap 11.5, BUN 8, Creatinine 0.60, Estimated Creat Clear 177, Estimated GFR 123, Est GFR ( Amer) 149, Glucose 96, Calcium 9.0, Total Bilirubin < 0.1 L, AST 25, ALT 17, Alkaline Phosphatase 76, C-Reactive Protein 0.8, Total Protein 6.9, Albumin 4.3, Globulin 2.6, Albumin/Globulin Ratio 1.7, Procalcitonin 0.032, TSH 0.02 L, Thyroxine (T4) 10.5 Result diagrams: 10/30/21 22:42 10/30/21 22:42 Orders (Tests/Meds): ED MEDICATIONS Generic Name Dose Route Start Last Admin Trade Name Freq PRN Reason Stop Dose Admin Sodium Chloride 1,000 mls @ 999 mls/hr 10/30/21 23:00 10/30/21 23:19 Sod Chlor 0.9% 1000ml Bag IV 10/31/21 00:00 999 mls/hr .Q1H1M [facility] Administration - Radiology Data #1 Image(s): Chest Image Reviewed: Yes I have reviewed radiologist's interpretation Preliminary Findings: Normal/NAD - ECG Data Tracing #1 Normal Sinus Rhythm: Yes Ischemic changes: non-specific ST-T wave changes Medical Decision Narrative: pt with possible anxiety as source of inc hr as nl thyroid - on biotin - has hx of dysuria but no d/c possible urethritis General Adult HPI - General Chief complaint: PAIN Stated complaint: possible UTI Time Seen by Provider: 10/30/21 22:50 Mode of Arrival: Family Vehicle Source of Information: Patient, Medical Record Limitations: No Limitations Description of Symptoms (Recalled from ER Triage Doc. by
[2021-10-30 23:15] LABS: Urine Pregnancy, HCG Qual. Negative (Negative)
[2021-10-30 23:21] LABS: Basophils # 0.1 K/mm3 (0-0.2); Basophils % 0.9 % (0.1-2.0); Eosinophils # 0.1 K/mm3 (0.0-0.4); Eosinophils % 1.8 % (0.1-12.0); Hematocrit 43.1 % (37.0-47.0); Hemoglobin 14.7 g/dL (12.2-16.2); Lymphocytes # 2.5 K/mm3 (0.7-4.5); Lymphocytes % 30.5 % (10-50); Mean Corpuscular HGB Conc 34.2 g/dL (31.8-35.4); Mean Corpuscular Volume 87.9 fl (81-99); Mean Platelet Volume 7.4 fl (7.4-10.4); Monocytes # 0.6 K/mm3 (0.1-1.0); Monocytes % 7.1 % (1.7-9.3); Neutrophils # 4.8 K/mm3 (1.8-7.8); Neutrophils % 59.7 % (37.0-80.0); Platelet Count 363 K/mm3 (142-424); White Blood Count 8.1 K/mm3 (4.8-10.8)
[2021-10-30 23:25] LABS: Alanine Aminotransferase 17 U/L (12-78); Albumin Level 4.3 g/dl (3.5-5.0); Albumin/Globulin Ratio 1.7 (1.1-1.8); Alkaline Phosphatase 76 U/L (38-126); Anion Gap 11.5 mEq/L (5-15); Aspartate Amino Transferase 25 U/L (14-36); Blood Urea Nitrogen 8 mg/dl (7-17); Carbon Dioxide 23 mmol/L (22.0-30.0); Chloride 107 mmol/L (98-107); Creatinine Clearance Estimated 177 mL/min (50-200); Estimated Glomerular Filt Rate 123 ml/min (>60); GFR (African American) 149 ML/MIN (>60); Globulin 2.6 g/dL (1.3-3.2); Glucose 96 mg/dl (74-100); Potassium 3.5 mmoL/L (3.5-5.1); Sodium 138 mmol/L (136-145); Total Protein,Serum 6.9 g/dl (6.3-8.2)
[2021-10-30 23:27] LABS: Bacteria,Urine 1+ /lpf; Mucus,Urine 1+ /lpf
[2021-10-30 23:28] LABS: Calcium Oxalate Crystals,Urine 2+ /lpf
[2021-10-30 23:30] LABS: Bilirubin,Total < 0.1 mg/dl (0.2-1.3)
[2021-10-30 23:31] LABS: C-Reactive Protein 0.8 mg/L (0-4)
[2021-10-30 23:45] LABS: Procalcitonin 0.032 ng/mL (0.0-2.0); T4 (Thyroxine) 10.5 ug/dl (5.53-11.0)
[2021-10-30 23:50] LABS: Erythrocyte Sedimentation Rate 6 mm/hr (0-20)
[2021-10-30 23:59] LABS: Thyroid Stimulating Hormone 0.02 uIU/mL (0.465-4.68)
[2021-10-31] VITALS: BP 120/85; PULSE 97; O2SAT 100
[2021-10-31 00:37] VITALS: BP 113/72; PULSE 88; RESP 18; TEMP 36.8; O2SAT 99
== END 2021-10-31 00:39 | disposition home or self-care (01) ==
PROVIDERS: Emergency Provider Emergency Medicine; PCP Physician Assistant
DX: N34.2 Other urethritis (principal); R00.2 Palpitations; E03.9 Hypothyroidism, unspecified
CPT/HCPCS: 71046; 80053; 81001; 81025; 84145; 84436; 84443; 85025; 85651; 86140; 87086; 87088; 93005; 96360; 99284; C9803; U0003; U0005

== ENCOUNTER → 2021-11-09 11:45 | Outpatient (CLI) | payer OTHER, SELFPAY ==
[2021-11-09 12:58] LABS: Thyroid Stimulating Hormone 0.16 uIU/mL (0.465-4.68)
== END ==
PROVIDERS: PCP Physician Assistant; Visit Provider Physician Assistant
DX: R79.89 Other specified abnormal findings of blood chemistry (principal)
CPT/HCPCS: 36415; 84443

== ENCOUNTER 2021-11-10 00:54 | Emergency (ER) | payer OTHER, SELFPAY ==
[2021-11-10 00:55] VITALS: BP 108/62; PULSE 125; RESP 14; TEMP 36.8; O2SAT 100; BMI 25.7
[2021-11-10 00:56] VITALS: BMI 25.7
[2021-11-10 01:29] LABS: Basophils # 0.3 K/mm3 (0-0.2); Basophils % 4.3 % (0.1-2.0); Eosinophils # 0.1 K/mm3 (0.0-0.4); Eosinophils % 1.8 % (0.1-12.0); Hematocrit 47.8 % (37.0-47.0); Hemoglobin 15.3 g/dL (12.2-16.2); Lymphocytes # 2.8 K/mm3 (0.7-4.5); Lymphocytes % 43.7 % (10-50); Mean Corpuscular HGB Conc 32.1 g/dL (31.8-35.4); Mean Corpuscular Hemoglobin 30.1 pg (27.0-31.2); Mean Corpuscular Volume 93.7 fl (81-99); Monocytes # 0.4 K/mm3 (0.1-1.0); Monocytes % 5.6 % (1.7-9.3); Neutrophils # 3.1 K/mm3 (1.8-7.8); Neutrophils % 48.9 % (37.0-80.0); Platelet Count 384 K/mm3 (142-424); Red Cell Distribution Width 12.7 % (11.5-17.5); White Blood Count 6.4 K/mm3 (4.8-10.8)
[2021-11-10 01:31] VITALS: BP 89/59; PULSE 104; O2SAT 98
[2021-11-10 01:40] LABS: HCG Qualitative, Serum Negative (Negative)
[2021-11-10 01:43] LABS: Alanine Aminotransferase 16 U/L (12-78); Albumin Level 4.3 g/dl (3.5-5.0); Albumin/Globulin Ratio 1.5 (1.1-1.8); Alkaline Phosphatase 76 U/L (38-126); Anion Gap 15.1 mEq/L (5-15); Aspartate Amino Transferase 32 U/L (14-36); Blood Urea Nitrogen 8 mg/dl (7-17); Carbon Dioxide 24 mmol/L (22.0-30.0); Chloride 109 mmol/L (98-107); Creatinine Clearance Estimated 113 mL/min (50-200); Estimated Glomerular Filt Rate 88 ml/min (>60); Ethyl Alcohol 217 mg/dl (0-10); GFR (African American) 107 ML/MIN (>60); Globulin 2.8 g/dL (1.3-3.2); Glucose 101 mg/dl (74-100); Potassium 4.1 mmoL/L (3.5-5.1); Sodium 144 mmol/L (136-145); Total Protein,Serum 7.1 g/dl (6.3-8.2)
--- NOTE | 2021-11-10 01:43 | PC.NURSE ---
Pt awake, A&Ox4 and asking for food and drink. ok'ed. Pt drinking water and eating kim crackers. Pt tolerating well.
[2021-11-10 01:45] LABS: Bilirubin,Total < 0.1 mg/dl (0.2-1.3)
[2021-11-10 01:48] LABS: C-Reactive Protein 0.8 mg/L (0-4)
[2021-11-10 01:54] LABS: Erythrocyte Sedimentation Rate 2 mm/hr (0-20)
[2021-11-10 02:00] VITALS: BP 80/44; PULSE 99; O2SAT 98
[2021-11-10 02:04] LABS: Procalcitonin < 0.030 ng/mL (0.0-2.0)
--- NOTE | 2021-11-10 02:10 | HMH.EDAMS ---
ED Disposition Clinical Impression: Vasovagal episode Alcoholic intoxication Qualifiers: Complication of substance-induced condition: uncomplicated Qualified Code(s): F10.920 - Alcohol use, unspecified with intoxication, uncomplicated Disposition: Home, Self-Care Condition on Discharge: Good Instructions: DI for Alcohol Use Disorder Additional Instructions: see pcp for follow up Referrals: Shaina Diaz PA [Primary Care Provider] - - Critical Care Critical Care Time: No Attestation: On 11/10/21, the high probability of a clinically significant, sudden or life threatening deterioration of the following system(s) required my full and direct attention, intervention and personal management. The time I documented below is in addition to time spent performing reported procedures but includes the following listed in this critical care notation. Medical Decision Making - Medical Records Medical records reviewed: Yes: I reviewed the patient's medical records. - Floyd Inquiry Pt receiving controlled substance: No Vital Signs: 11/10/21 00:55 11/10/21 01:31 11/10/21 02:00 Temperature 98.2 F Temperature Source Oral Pulse Rate 104 H 99 H Pulse Rate [Right] 125 H Respiratory Rate 14 Blood Pressure 89/59 L 80/44 L Blood Pressure [Right Arm] 108/62 L Blood Pressure Mean [Right Arm] 77 02 Sat by Pulse Oximetry 100 98 98 Oxygen Delivery Method Room Air Room Air - Lab Data Lab results reviewed: Yes: I reviewed the patient's lab results. Lab Results 11/10/21 00:59: WBC 6.4, RBC 5.10, Hgb 15.3, Hct 47.8 H, MCV 93.7, MCH 30.1, MCHC 32.1, RDW 12.7, Plt Count 384, MPV 9.0, Neut % (Auto) 48.9, Lymph % (Auto) 43.7, [place] % (Auto) 5.6, Eos % (Auto) 1.8, Baso % (Auto) 4.3 H, Neut # (Auto) 3.1, Lymph # (Auto) 2.8, [place] # (Auto) 0.4, Eos # (Auto) 0.1, Baso # (Auto) 0.3 H, ESR 2 11/10/21 00:59: Sodium 144, Potassium 4.1, Chloride 109 H, Carbon Dioxide 24, Anion Gap 15.1 H, BUN 8, Creatinine 0.80, Estimated Creat Clear 113, Estimated GFR 88, Est GFR ( Amer) 107, Glucose 101 H, Calcium 9.0, Total Bilirubin < 0.1 L, AST 32, ALT 16, Alkaline Phosphatase 76, C-Reactive Protein 0.8, Total Protein 7.1, Albumin 4.3, Globulin 2.8, Albumin/Globulin Ratio 1.5, Procalcitonin < 0.030 11/10/21 00:59: Serum HCG, Qual Negative 11/10/21 00:59: Plasma/Serum Alcohol 217 H Result diagrams: 11/10/21 00:59 11/10/21 00:59 Orders (Tests/Meds): ED MEDICATIONS Generic Name Dose Route Start Last Admin Trade Name Freq PRN Reason Stop Dose Admin Multivitamins 10 ml/ Thiamine 1,015 mls @ 150 mls/hr 11/10/21 01:00 11/10/21 01:12 HCl 100 mg/ Magnesium Sulfate IV 11/10/21 07:45 150 mls/hr 2 gm/ Lactated Ringer's .Q6H46M KORINA Administration Discontinued Medications Generic Name Dose Route Start Last Admin Trade Name Freq PRN Reason Stop Dose Admin Acetaminophen 650 mg 11/10/21 02:39 11/10/21 02:40 Acetaminophen 325mg Tab PO 11/10/21 02:40 650 mg ONCE ONE Administration Folic Acid 1 mg 11/10/21 00:57 11/10/21 02:41 Folic Acid 1mg Tablet PO 11/10/21 00:58 1 mg ONCE ONE Administration Ondansetron HCl 4 mg 11/10/21 01:01 11/10/21 01:11 Ondansetron 4mg/2ml Vial IV 11/10/21 01:02 4 mg ONCE ONE Administration ORDERS Category Date Time Status Drug Screen,Urine Stat Lab 11/10/21 00:57 Ordered - Reevaluation(s) Time: 02:47 Reevaluation #1: much improved Medical Decision Narrative: pt with acute etoh intoxication and stable exam Altered Mental Status HPI - General Chief Complaint: Alcohol Stated Complaint: Low Blood Pressure, too much to drink Time Seen by Provider: 11/10/21 02:10 Mode of Arrival: Wheelchair Source of Information: Patient, Relative, Medical Record Limitations: No Limitations Description of Symptoms (Recalled from ER Triage Doc. by RN): per sister pt has been drinking since 6pm, reports pt passed out a hour and half ago. pt is awake and
--- NOTE | 2021-11-10 02:41 | PC.NURSE ---
at updating on POC
[2021-11-10 02:47] VITALS: BP 110/78; PULSE 90; RESP 16; TEMP 36.8; O2SAT 98
== END 2021-11-10 02:52 | disposition home or self-care (01) ==
PROVIDERS: Emergency Provider Emergency Medicine; PCP Physician Assistant
DX: F10.920 Alcohol use, unspecified with intoxication, uncomplicated (principal); R55 Syncope and collapse; Y90.7 Blood alcohol level of 200-239 mg/100 ml; Z79.899 Other long term (current) drug therapy; Z88.5 Allergy status to narcotic agent; F41.9 Anxiety disorder, unspecified; J45.909 Unspecified asthma, uncomplicated; F32.A Depression, unspecified; G43.909 Migraine, unspecified, not intractable, without status migrainosus; E03.9 Hypothyroidism, unspecified; Z72.0 Tobacco use
CPT/HCPCS: 80053; 84145; 84703; 85025; 85651; 86140; 96365; 96366; 96375; 99284; J2405

== ENCOUNTER → 2021-11-13 13:27 | Outpatient (CLI) | payer OTHER, SELFPAY | PROVIDERS: PCP Physician Assistant; Visit Provider Nurse Practitioner Family | DX: R00.0 Tachycardia, unspecified (principal); R42 Dizziness and giddiness; R61 Generalized hyperhidrosis | CPT/HCPCS: 93270 ==

== ENCOUNTER → 2021-11-19 16:47 | Outpatient (CLI) | payer OTHER, SELFPAY | PROVIDERS: PCP Physician Assistant; Visit Provider Physician Assistant | DX: Z87.440 Personal history of urinary (tract) infections (principal) | CPT/HCPCS: 87086 ==

== ENCOUNTER → 2022-01-07 12:23 | Outpatient (CLI) | payer OTHER, SELFPAY ==
--- NOTE | 2022-01-07 12:28 | US_ITS ---
FINAL REPORT CLINICAL HISTORY: HYPOTHYROIDISM COMPARISON: February 02, 2019 FINDINGS: THYROID ULTRASOUND Sonographic images of the thyroid was obtained. The thyroid is enlarged with a heterogeneous echotexture, nonspecific, but without a well-defined separate nodule. The right lobe of the thyroid measures 5.5 x 1.2 x 1.7 cm. The left lobe of the thyroid measures 5.1 x 1.2 x 1.6 cm. The isthmus measures 4 mm. IMPRESSION: Enlarged thyroid with a heterogeneous echotexture which is nonspecific but can be seen with thyroiditis. No well-defined nodule identified. Reviewed, Interpreted and Dictated by Jameson Delgado III, MD Transcribed by Lyndsey Garner Authenticated and [facility]
== END ==
PROVIDERS: PCP Physician Assistant; Visit Provider Internal Medicine Endocrinology, Diabetes & Metabolism
DX: E03.9 Hypothyroidism, unspecified (principal)
CPT/HCPCS: 76536

== ENCOUNTER → 2022-01-28 13:24 | Outpatient (CLI) | payer OTHER, SELFPAY ==
[2022-01-28 13:31] LABS: Amphetamine/Metha Screen,Urine Negative ng/ml (<1000)
[2022-01-28 13:32] LABS: Barbiturates Screen,Urine Negative ng/ml (<200); Benzodiazepines Screen,Urine Negative ng/ml (<200)
[2022-01-28 13:33] LABS: Cannabinoid Screen,Urine Negative ng/ml (<50); Cocaine Screen,Urine Negative ng/ml (<300)
[2022-01-28 13:35] LABS: Methadone Screen,Urine Negative ng/ml (<300)
[2022-01-28 13:36] LABS: Phencyclidine Screen,Urine Negative ng/ml (<25)
[2022-01-28 13:48] LABS: Opiate Screen,Urine Negative ng/ml (<300)
== END ==
PROVIDERS: PCP Physician Assistant; Visit Provider Physician Assistant
DX: Z79.899 Other long term (current) drug therapy (principal)
CPT/HCPCS: 80305

== ENCOUNTER 2022-02-20 15:09 | Emergency (ER) | payer OTHER, SELFPAY ==
[2022-02-20 15:30] VITALS: BP 101/67; PULSE 103; RESP 18; TEMP 37; O2SAT 100; BMI 30.2
--- NOTE | 2022-02-20 15:40 | EXP.UTC ---
Discharge Plan Disposition Patient Disposition: Home, Self-Care Condition: Good Prescriptions Prescriptions: New azithromycin [Zithromax] 250 mg tablet 250 mg PO UD DOSE PK Qty: 6 0RF Rx Instructions: Take two (2) tablets today, then one (1) tablet days #2 thru #5 [id number]-moonvaxjg-LV [Bromfed DM] 2-30-10 mg/5 mL Syrup 5 ml PO Q6H PRN (Reason: Cough) Qty: 240 0RF fluconazole [Diflucan] 150 mg tablet 150 mg PO ONCE Qty: 1 2RF methylprednisolone 4 mg Tablets,Dose Pack 4 mg PO DIRECTED Qty: 21 0RF No Action hyoscyamine sulfate 0.125 mg tablet, sublingual 0.125 mg SL QID Qty: 120 2RF clonazepam 0.5 mg tablet 0.5 mg PO BID Qty: 60 0RF fluoxetine 40 mg capsule See Rx Instructions .Route .COMPLEX Qty: 90 0RF Rx Instructions: TAKE ONE CAPSULE BY MOUTH ONCE A DAY levothyroxine 125 mcg capsule 125 mcg PO DAILY Qty: 90 0RF rimegepant 75 mg tablet,disintegrating 75 mg PO Q OTHER DAY 30 Days Qty: 15 5RF propranolol 60 mg capsule,extended release 24 hr 60 mg PO DAILY Qty: 30 2RF One Daily Women's 27-0.4 mg tablet 1 tab PO .qd Qty: 30 3RF Referrals Follow up/Referrals: Shaina Diaz PA [Primary Care Provider] - See instructions Activity Restrictions/Add. Instructions Additional Instructions/Restrictions: Drink plenty of fluids. Take tylenol or ibuprofen for pain or fever. Take the medications as directed. Follow up with your regular doctor. GO TO THE ER FOR ANY WORSENING SYMPTOMS Quarantine until you know the results of your covid-19 test. Notify your school or workplace of your results and follow their instructions regarding return to work/school. Don't start the oral steroids until tomorrow, since you had the shot here today. Clinical Impressions Clinical Impression: Sinusitis, Pharyngitis, Exposure to 2019 novel coronavirus Stand Alone Forms Stand Alone Forms: Work/School Release Instructions Patient Instructions: Sinusitis, DI for Sinusitis, Coronavirus Disease 2019, Preventing the Spread of Coronavirus Discharge Instructions Discharge ED Provider: Karan Clarke [facility] HPI General Stated complaint: coughg, congestion, weakness Mode of Arrival: Ambulatory Source of Information: Patient Limitations: No Limitations Time Seen by Provider: 02/20/22 15:38 Description of Symptoms (Recalled from Triage Doc. by RN): pt c/o sore throat, cough, malaise, abdominal cramps, headache and runny nose HEENT Symptoms (Recalled from RN notes): No Resp Symptoms (Recalled from RN notes): Yes Skin Symptoms (Recalled from RN notes): No MS Symptoms (Recalled from RN notes): No Functional Status (Recalled from RN notes): na History of Present Illness Provider Complaint: She states that for the past 3 days she has had a sore throat, chills, body aches, and a dry cough. She has been exposed to covid-19 and strep throat. Related Data Previous Rx's Medication Instructions Recorded levothyroxine 125 mcg capsule 125 mcg PO DAILY #90 caps 11/12/21 rimegepant 75 mg disintegrating 75 mg PO Q OTHER DAY migraine 11/20/21 tablet prevention 30 days #15 tabs hyoscyamine sulfate 0.125 mg 0.125 mg sublingual QID #120 tabs 12/06/21 sublingual tablet propranolol 60 mg capsule,24 60 mg PO DAILY #30 caps 12/11/21 hr,extended release ucrtvzonkxuw-Hn-vowf-minerals 27 1 tab PO .qd vitamin deficiency 01/20/22 mg-0.4 mg tablet (One Daily #30 tabs Women's) clonazepam 0.5 mg tablet 0.5 mg PO BID Anxiety #60 tabs 01/28/22 fluoxetine 40 mg capsule See Rx Instructions .Route 01/28/22 .COMPLEX . #90 caps azithromycin 250 mg tablet 250 mg PO UD DOSE PK #6 tabs 02/20/22 (Zithromax) tiwfkwgpmjsfive-ysbtvgymtxbdcms-ZO 5 ml PO Q6H PRN Cough #240 mL 02/20/22 2 mg-30 mg-10 mg/5 mL oral syrup (Bromfed DM) fluconazole 150 mg tablet 150 mg PO ONCE #1 tab 02/20/22 (Diflucan) methylprednisolone 4 mg tablets in 4 mg PO DIRECTED #21 tabs 10
[2022-02-20 15:51] LABS: UTC Strep Screen (Rapid) Negative (Negative)
[2022-02-20 16:18] VITALS: BP 101/67; PULSE 103; RESP 18; TEMP 37; O2SAT 99
== END 2022-02-20 16:20 | disposition home or self-care (01) ==
PROVIDERS: Emergency Provider Nurse Practitioner Family; PCP Physician Assistant
DX: J02.9 Acute pharyngitis, unspecified (principal); Z20.822 Contact with and (suspected) exposure to COVID-19; J32.9 Chronic sinusitis, unspecified
CPT/HCPCS: 87880; 90471; 96372; 99212; C9803; G0463; J0696; U0003; U0005

== ENCOUNTER → 2022-04-01 14:28 | Outpatient (CLI) | payer OTHER, SELFPAY ==
[2022-04-01 18:12] LABS: Free T4 (Free Thyroxine) 1.19 ng/dl (0.78-2.19)
[2022-04-01 20:30] LABS: Thyroid Stimulating Hormone 0.96 uIU/mL (0.465-4.68)
== END ==
PROVIDERS: PCP Physician Assistant; Visit Provider Internal Medicine Endocrinology, Diabetes & Metabolism
DX: E03.8 Other specified hypothyroidism (principal)
CPT/HCPCS: 36415; 84439; 84443

== ENCOUNTER 2022-04-07 22:09 | Emergency (ER) | payer OTHER, SELFPAY ==
[2022-04-07 22:19] VITALS: BP 119/66; PULSE 88; RESP 18; TEMP 36.8; O2SAT 99; BMI 29.5
--- NOTE | 2022-04-07 22:24 | CT_ITS ---
PROCEDURE INFORMATION: Exam: CT Abdomen And Pelvis Without Contrast Exam date and time: 04/07/2022 10:46 PM Age: 26 years old Clinical indication: Abdominal pain; Prior surgery; Surgery type: Gastric sleeve; Patient HX: PT C/O left sided pain, left flank and pelvic pain; Additional info: Flank pain TECHNIQUE: Imaging protocol: Computed tomography of the abdomen and pelvis without contrast. Radiation optimization: All CT scans at this facility use at least one of these dose optimization techniques: automated exposure control; mA and/or kV adjustment per patient size (includes targeted exams where dose is matched to clinical indication); or iterative reconstruction. COMPARISON: CT ABDOMEN PELVIS WO CON 03/11/2019 12:21 AM FINDINGS: Liver: No acute findings. No mass. Gallbladder and bile ducts: No acute findings, calcified stones or ductal dilation. Pancreas: No acute findings, focal abnormality or ductal dilation. Spleen: Punctate calcifications in the spleen likely related to chronic granulomatous disease. Adrenal glands: Normal. No mass. Kidneys and ureters: No hydronephrosis. Stomach and bowel: Status post gastric sleeve surgery. Appendix: No evidence of appendicitis. Intraperitoneal space: No free air. No significant fluid collection. Vasculature: No abdominal aortic aneurysm. Lymph nodes: No pathologically enlarged lymph nodes. Urinary bladder: Unremarkable as visualized. Reproductive: Unremarkable as visualized. Bones/joints: No acute fracture. Soft tissues: No acute findings. IMPRESSION: 1. No acute findings in the abdomen or pelvis. 2. Other chronic changes as described.
[2022-04-07 22:30] LABS: Microscopic, Urine URINE MICROSCOPIC (MICROSCOPIC)
[2022-04-07 22:37] LABS: Appearance,Urine CLEAR (Clear); Blood, Urine Negative (Negative); Color,Urine YELLOW (Yellow); Glucose,Urine (UA) Negative (Negative); Ketones,Urine TRACE (Negative); Leukocyte Esterase,Urine Negative (Negative); Nitrate,Urine Negative (Negative); Protein,Urine Negative (Negative); Specific Gravity, Urine >= 1.030 (1.005-1.030); Urobilinogen,Urine 0.2 EU/dl (0.2)
[2022-04-07 22:37] LABS: Basophils # 0.1 K/mm3 (0-0.2); Eosinophils # 0.2 K/mm3 (0.0-0.4); Hematocrit 45.9 % (37.0-47.0); Hemoglobin 14.9 g/dL (12.2-16.2); Lymphocytes # 2.8 K/mm3 (0.7-4.5); Lymphocytes % 36.2 % (10-50); Mean Corpuscular HGB Conc 32.3 g/dL (31.8-35.4); Mean Corpuscular Volume 92.7 fl (81-99); Monocytes # 0.4 K/mm3 (0.1-1.0); Monocytes % 5.5 % (1.7-9.3); Neutrophils # 4.3 K/mm3 (1.8-7.8); Neutrophils % 55.3 % (37.0-80.0); Platelet Count 373 K/mm3 (142-424); Red Blood Count 4.96 M/mm3 (4.20-5.40); Red Cell Distribution Width 12.7 % (11.5-17.5); White Blood Count 7.7 K/mm3 (4.8-10.8)
[2022-04-07 22:38] LABS: Chloride 104 mmol/L (98-107); Sodium 140 mmol/L (136-145)
[2022-04-07 22:40] LABS: Urine Pregnancy, HCG Qual. Negative (Negative)
[2022-04-07 22:41] LABS: Alanine Aminotransferase 13 U/L (12-78); Albumin Level 4.6 g/dl (3.5-5.0); Albumin/Globulin Ratio 1.8 (1.1-1.8); Alkaline Phosphatase 67 U/L (38-126); Aspartate Amino Transferase 24 U/L (14-36); Bilirubin,Total 0.4 mg/dl (0.2-1.3); Blood Urea Nitrogen 7 mg/dl (7-17); Carbon Dioxide 29 mmol/L (22.0-30.0); Creatinine Clearance Estimated 104 mL/min (50-200); Estimated Glomerular Filt Rate 68 ml/min (>60); GFR (African American) 82 ML/MIN (>60); Globulin 2.6 g/dL (1.3-3.2); Total Protein,Serum 7.2 g/dl (6.3-8.2)
[2022-04-07 22:42] LABS: Calcium 9.3 mg/dl (8.4-10.2); Glucose 54 mg/dl (74-100)
[2022-04-07 22:44] LABS: Bilirubin,Urine 1+ (Negative)
[2022-04-07 23:00] VITALS: BP 115/54; PULSE 70; O2SAT 100
[2022-04-07 23:07] LABS: Squamous Epithelial Cell,Urine Occasional #/hpf (0-5); WBC,Urine Occasional #/hpf (0-3)
--- NOTE | 2022-04-07 23:32 | HMH.EDUROGF ---
Discharge Plan Disposition Patient Disposition: Home, Self-Care Prescriptions Prescriptions: New levofloxacin 500 mg tablet 500 mg PO DAILY Qty: 7 0RF phenazopyridine [Pyridium] 200 mg tablet 200 mg PO TID Qty: 6 0RF No Action hyoscyamine sulfate 0.125 mg tablet, sublingual 0.125 mg SL QID Qty: 120 2RF fluoxetine 40 mg capsule See Rx Instructions .Route .COMPLEX Qty: 90 0RF Rx Instructions: TAKE ONE CAPSULE BY MOUTH ONCE A DAY levothyroxine 125 mcg capsule 125 mcg PO DAILY Qty: 90 0RF rimegepant 75 mg tablet,disintegrating 75 mg PO Q OTHER DAY 30 Days Qty: 15 5RF One Daily Women's 27-0.4 mg tablet 1 tab PO .qd Qty: 30 3RF propranolol 60 mg capsule,extended release 24 hr 60 mg PO DAILY Qty: 30 2RF clonazepam 0.5 mg tablet 0.5 mg PO BID Qty: 60 0RF azithromycin [Zithromax] 250 mg tablet 250 mg PO UD DOSE PK Qty: 6 0RF Rx Instructions: Take two (2) tablets today, then one (1) tablet days #2 thru #5 oxhyrwzbrfpfqou-vimiojhqr-JZ [Bromfed DM] 2-30-10 mg/5 mL Syrup 5 ml PO Q6H PRN (Reason: Cough) Qty: 240 0RF fluconazole [Diflucan] 150 mg tablet 150 mg PO ONCE Qty: 1 2RF methylprednisolone 4 mg Tablets,Dose Pack 4 mg PO DIRECTED Qty: 21 0RF Referrals Follow up/Referrals: Shaina Diaz PA [Primary Care Provider] - See instructions Clinical Impressions Clinical Impression: Urethritis Instructions Patient Instructions: DI for Urethritis Discharge ED Provider: Jerod Louis Female Urogenital HPI General Chief complaint: Urogenital-Female Stated complaint: back pain, burning when pee, abd pain Time Seen by Provider: 04/07/22 23:33 Mode of Arrival: Ambulatory Source of Information: Patient and Medical Record Limitations: No Limitations Description of Symptoms (Recalled from ER Triage Doc. by RN): Pt c/o left lower flank pain that began this afternoon. States that she has also had decreased urine output with burning with urination. History of Present Illness HPI Narrative: dysuria with lt flank pain which started tonight - no fever /rash or trauma and no hematuria Complaint: dysuria Onset (ago): hour(s) Radiation: L flank Severity: moderate Associated symptoms: denies other symptoms Related Data Previous Rx's Medication Instructions Recorded levothyroxine 125 mcg capsule 125 mcg PO DAILY #90 caps 11/12/21 rimegepant 75 mg disintegrating 75 mg PO Q OTHER DAY migraine 11/20/21 tablet prevention 30 days #15 tabs hyoscyamine sulfate 0.125 mg 0.125 mg sublingual QID #120 tabs 12/06/21 sublingual tablet osmmlnqbzshu-Kq-oriv-minerals 27 1 tab PO .qd vitamin deficiency 01/20/22 mg-0.4 mg tablet (One Daily #30 tabs Women's) fluoxetine 40 mg capsule See Rx Instructions .Route 01/28/22 .COMPLEX . #90 caps azithromycin 250 mg tablet 250 mg PO UD DOSE PK #6 tabs 02/20/22 (Zithromax) tbxvpzpubhdaxcj-kxefbfcdqylvicq-LK 5 ml PO Q6H PRN Cough #240 mL 02/20/22 2 mg-30 mg-10 mg/5 mL oral syrup (Bromfed DM) fluconazole 150 mg tablet 150 mg PO ONCE #1 tab 02/20/22 (Diflucan) methylprednisolone 4 mg tablets in 4 mg PO DIRECTED #21 tabs 02/20/22 a dose pack propranolol 60 mg capsule,24 60 mg PO DAILY #30 caps 03/06/22 hr,extended release clonazepam 0.5 mg tablet 0.5 mg PO BID Anxiety #60 tabs 03/24/22 levofloxacin 500 mg tablet 500 mg PO DAILY #7 tabs 04/07/22 phenazopyridine 200 mg tablet 200 mg PO TID 6 doses #6 tabs 04/07/22 (Pyridium) Allergies Allergy/AdvReac Type Severity Reaction Status Date / Time morphine [MORPHINE] Allergy Unknown Verified 01/28/22 08:11 [facility] Disclaimer: The information contained in this section may have been updated after the patient was seen, as this information can be updated by other users. Medical History Acne Anxiety and depression Cryptosporidial gastroenteritis Dizziness DUB (dysfunctional uterine b
[2022-04-07 23:53] VITALS: BP 118/50; PULSE 68; RESP 17; TEMP 36.9; O2SAT 100
[2022-04-08 00:02] VITALS: BP 115/54; PULSE 72; RESP 18; TEMP 36.6; O2SAT 98
== END 2022-04-08 00:04 | disposition home or self-care (01) ==
PROVIDERS: Emergency Provider Emergency Medicine; PCP Physician Assistant
DX: N34.2 Other urethritis (principal); Z79.899 Other long term (current) drug therapy; Z88.5 Allergy status to narcotic agent; F41.9 Anxiety disorder, unspecified; F32.A Depression, unspecified; E78.5 Hyperlipidemia, unspecified; E03.9 Hypothyroidism, unspecified; G43.909 Migraine, unspecified, not intractable, without status migrainosus; Z98.84 Bariatric surgery status
CPT/HCPCS: 74176; 80053; 81001; 81025; 85025; 87086; 96365; 96375; 99284

== ENCOUNTER → 2022-05-01 12:25 | Outpatient (CLI) | payer OTHER, SELFPAY ==
[2022-05-03 23:47] LABS: QuantiFERON-TB Gold Plus Negative (Negative)
== END ==
PROVIDERS: PCP Physician Assistant; Visit Provider Physician Assistant
DX: Z11.1 Encounter for screening for respiratory tuberculosis (principal)
CPT/HCPCS: 36415; 86480

== ENCOUNTER 2022-06-27 16:22 | Emergency (ER) | payer OTHER, SELFPAY ==
[2022-06-27 17:00] VITALS: BP 125/76; PULSE 73; RESP 20; TEMP 37; O2SAT 98; BMI 32.5
--- NOTE | 2022-06-27 17:15 | EXP.UTC ---
Discharge Plan Disposition Patient Disposition: Home, Self-Care Condition: Good Prescriptions Prescriptions: New amoxicillin [amoxicillin] 500 mg tablet 500 mg PO TID 10 Days Qty: 30 0RF nubadurldjlluvv-thwlwpscf-SW [Bromfed DM] 2-30-10 mg/5 mL Syrup 5 ml PO Q6H PRN (Reason: Cough) Qty: 240 0RF methylprednisolone 4 mg Tablets,Dose Pack 4 mg PO DIRECTED Qty: 21 0RF No Action hyoscyamine sulfate 0.125 mg tablet, sublingual 0.125 mg SL HS levothyroxine [Synthroid] 112 mcg tablet 112 mcg PO DAILY fluoxetine 40 mg capsule See Rx Instructions .Route .COMPLEX Qty: 90 0RF Rx Instructions: TAKE ONE CAPSULE BY MOUTH ONCE A DAY atomoxetine [Strattera] 40 mg capsule 40 mg PO DAILY Qty: 30 2RF mirtazapine [Remeron] 15 mg tablet 15 mg PO HS Qty: 30 2RF fluoxetine 20 mg capsule 20 mg PO DAILY Qty: 30 2RF Rx Instructions: Take with fluoxetine 40 mg to make 60 mg total propranolol 60 mg capsule,extended release 24 hr 60 mg PO BID Qty: 180 3RF rimegepant 75 mg tablet,disintegrating 75 mg PO Q OTHER DAY 30 Days Qty: 15 5RF One Daily Women's 27-0.4 mg tablet 1 tab PO .qd Qty: 90 3RF clonazepam 0.5 mg tablet 0.5 mg PO BID Qty: 60 0RF Referrals Follow up/Referrals: Shaina Diaz PA [Primary Care Provider] - See instructions Activity Restrictions/Add. Instructions Additional Instructions/Restrictions: Drink plenty of fluids. Take tylenol or ibuprofen for pain or fever. Take the medications as directed. Follow up with your regular doctor. GO TO THE ER FOR ANY WORSENING SYMPTOMS Clinical Impressions Clinical Impression: Pharyngitis, Sinusitis Instructions Patient Instructions: DI for Pharyngitis/Tonsillopharyngitis -- Adult, DI for Sinusitis Discharge ED Provider: Karan Clarke [facility] General Stated complaint: congestion, fever, sore throat Time Seen by Provider: 06/27/22 17:15 History of Present Illness Provider Complaint: She states that for the past 2 days she has had sore throat, chills, and congestion. Related Data Home Medications Medication Instructions Recorded Confirmed hyoscyamine sulfate 0.125 mg 0.125 mg sublingual HS 04/28/22 06/03/22 sublingual tablet levothyroxine 112 mcg tablet 112 mcg PO DAILY 04/28/22 06/03/22 (Synthroid) Previous Rx's Medication Instructions Recorded rimegepant 75 mg disintegrating 75 mg PO Q OTHER DAY migraine 11/20/21 tablet prevention 30 days #15 tabs fluoxetine 40 mg capsule See Rx Instructions .Route 04/28/22 .COMPLEX . #90 caps nufmorjhumne-Hs-tfge-minerals 27 1 tab PO .qd vitamin deficiency 05/27/22 mg-0.4 mg tablet #90 tabs atomoxetine 40 mg capsule 40 mg PO DAILY #30 caps 05/28/22 (Strattera) fluoxetine 20 mg capsule 20 mg PO DAILY #30 caps 05/28/22 mirtazapine 15 mg tablet (Remeron) 15 mg PO HS #30 tabs 05/28/22 propranolol 60 mg capsule,24 60 mg PO BID #180 caps 06/03/22 hr,extended release clonazepam 0.5 mg tablet 0.5 mg PO BID Anxiety #60 tabs 06/23/22 amoxicillin 500 mg tablet 500 mg PO TID 10 days #30 tabs 06/27/22 fifhixczvlhjfvw-ygggfxunjdnbgqt-BE 5 ml PO Q6H PRN Cough #240 mL 06/27/22 2 mg-30 mg-10 mg/5 mL oral syrup (Bromfed DM) methylprednisolone 4 mg tablets in 4 mg PO DIRECTED #21 tabs 06/27/22 a dose pack Allergies Allergy/AdvReac Type Severity Reaction Status Date / Time morphine [MORPHINE] Allergy Unknown Verified 06/27/22 17:20 [facility] Disclaimer: The information contained in this section may have been updated after the patient was seen, as this information can be updated by other users. Medical History Acne Anxiety and depression Cryptosporidial gastroenteritis Dizziness Dizziness DUB (dysfunctional uterine bleeding) Dyspnea Dyspnea Hyperlipidemia Hypothyroidism Insomnia Migraine Obesity Vitamin D deficiency (~11/22/17) Surgical H
[2022-06-27 17:16] LABS: UTC Influenza A Antigen Negative (Negative); UTC Influenza B Antigen Negative (Negative); UTC Strep Screen (Rapid) Negative (Negative)
[2022-06-27 18:07] VITALS: BP 125/76; PULSE 73; RESP 20; TEMP 37; O2SAT 98
== END 2022-06-27 18:07 | disposition home or self-care (01) ==
PROVIDERS: Emergency Provider Nurse Practitioner Family; PCP Physician Assistant
DX: J32.9 Chronic sinusitis, unspecified (principal); J02.9 Acute pharyngitis, unspecified
CPT/HCPCS: 87804; 87880; 99212; 99213; G0463

== ENCOUNTER 2022-07-07 12:49 | Emergency (ER) | payer OTHER, SELFPAY ==
[2022-07-07 12:55] VITALS: BP 119/76; PULSE 99; RESP 20; TEMP 37.1; O2SAT 100; BMI 33.6
[2022-07-07 13:18] LABS: UTC Strep Screen (Rapid) Negative (Negative)
--- NOTE | 2022-07-07 13:31 | EXP.UTC ---
Discharge Plan Disposition Patient Disposition: Home, Self-Care Condition: Good Prescriptions Prescriptions: No Action hyoscyamine sulfate 0.125 mg tablet, sublingual 0.125 mg SL HS levothyroxine [Synthroid] 112 mcg tablet 112 mcg PO DAILY fluoxetine 40 mg capsule See Rx Instructions .Route .COMPLEX Qty: 90 0RF Rx Instructions: TAKE ONE CAPSULE BY MOUTH ONCE A DAY atomoxetine [Strattera] 40 mg capsule 40 mg PO DAILY Qty: 30 2RF mirtazapine [Remeron] 15 mg tablet 15 mg PO HS Qty: 30 2RF fluoxetine 20 mg capsule 20 mg PO DAILY Qty: 30 2RF Rx Instructions: Take with fluoxetine 40 mg to make 60 mg total propranolol 60 mg capsule,extended release 24 hr 60 mg PO BID Qty: 180 3RF rimegepant 75 mg tablet,disintegrating 75 mg PO Q OTHER DAY 30 Days Qty: 15 5RF One Daily Women's 27-0.4 mg tablet 1 tab PO .qd Qty: 90 3RF clonazepam 0.5 mg tablet 0.5 mg PO BID Qty: 60 0RF amoxicillin [amoxicillin] 500 mg tablet 500 mg PO TID 10 Days Qty: 30 0RF jmiukdrropefsbd-sxymddrnj-DP [Bromfed DM] 2-30-10 mg/5 mL Syrup 5 ml PO Q6H PRN (Reason: Cough) Qty: 240 0RF methylprednisolone 4 mg Tablets,Dose Pack 4 mg PO DIRECTED Qty: 21 0RF Referrals Follow up/Referrals: Shaina Diaz PA [Primary Care Provider] - See instructions Activity Restrictions/Add. Instructions Additional Instructions/Restrictions: *Monitor Temp, Over the counter Motrin or Tylenol as directed/as needed Tylenol every 4 hours and Motrin every 6 hours (as long as your family doctor has told you that you can take it) for fever or pain. and straight to ER if unable to lower temp less than 101.0 after medication given *Warm salt water gargles may help to soothe the throat *Throat Lozenges? *Warm fluids like tea with honey may help to soothe the throat? *Sleep elevated *Humidifier/Vaporizer Your throat swab was sent for culture. Those results are typically sent to your primary care. Be sure to follow up in 2-3 days with your family doctor/primary care physician if no improvement so they can review those result and treat if necessary. If you don?t have a primary care doctor, I recommend you get one but in the mean time, you will have to return to a walk in clinic Follow up IMMEDIATELY for new or worsening symptoms or no Noticeable improvement over the next 48-72 hours. 911 for difficulty breathing or swallowing Clinical Impressions Clinical Impression: Sore throat (viral) Stand Alone Forms Stand Alone Forms: Work/School Release Instructions Patient Instructions: Sore Throat Discharge ED Provider: Adrianne López [facility] [place] General Stated complaint: sore throat, blisters in throat Mode of Arrival: Ambulatory Source of Information: Patient Limitations: No Limitations Time Seen by Provider: 07/07/22 13:31 Description of Symptoms (Recalled from Triage Doc. by RN): PATIENT C/O SORE THROAT WITH BLISTERS X 2-3 WEEKS. SHE STATES SHE WAS RECENTLY TREATED FOR PHARYNGITIS WITH AMOXICILLIN AND STEROIDS, BUT STATES HER THROAT IS NOT BETTER HEENT Symptoms (Recalled from RN notes): Yes Resp Symptoms (Recalled from RN notes): No Skin Symptoms (Recalled from RN notes): No MS Symptoms (Recalled from RN notes): No Functional Status (Recalled from RN notes): WNL History of Present Illness Provider Complaint: Patient states that she recently finished antibiotic she was taking for Pharngitis States that she finished the medication on Thursday but today still felt like her throat was red with blisters on it States that she has been gargling warm salt water and it has helped but today her throat was still hurting and looked red so she came in Related Data Home Medications Medication Instructions Recorded Confirmed hyoscyamine sulfate 0.125 mg 0.125 mg sublingual HS 04/28/22 06/03/22 sublingual tablet levothyroxine 112 mcg tablet 112 mcg PO DAILY 04/28/22 06/03/22
[2022-07-07 13:38] LABS: Monoscreen (Rapid) Negative (Negative)
[2022-07-07 13:52] VITALS: BP 119/76; PULSE 99; RESP 20; TEMP 37.1; O2SAT 100
== END 2022-07-07 14:16 | disposition home or self-care (01) ==
PROVIDERS: Emergency Provider Nurse Practitioner; PCP Physician Assistant
DX: J02.8 Acute pharyngitis due to other specified organisms (principal); B34.9 Viral infection, unspecified; F17.290 Nicotine dependence, other tobacco product, uncomplicated
CPT/HCPCS: 86318; 87880; 99212; 99213; G0463

== ENCOUNTER → 2022-08-04 15:41 | Outpatient (CLI) | payer OTHER, SELFPAY ==
--- NOTE | 2022-08-04 15:52 | US_ITS ---
PROCEDURE INFORMATION: Exam: US Nonobstetric Pelvis; Complete Exam date and time: 08/04/2022 4:14 PM Age: 27 years old Clinical indication: Abdominal pain; Left lower quadrant; Additional info: Abd pain TECHNIQUE: Imaging protocol: Transabdominal pelvic nonobstetric ultrasound. Complete exam. Real time ultrasound with image documentation. COMPARISON: CT ABDOMEN PELVIS WO CON 04/07/2022 10:46 PM FINDINGS: Uterus: Small nabothian cysts are noted in the cervix. Uterus appears otherwise unremarkable, measuring 7.7 x 4.0 x 5.1 cm, with endometrial stripe thickness of 4.4 mm. Right ovary/adnexa: Ovary is normal. No mass. Normal blood flow. Right ovary measures 2.1 x 2.0 x 1.5 cm. Left ovary/adnexa: Ovary is normal. No mass. Normal blood flow. Left ovary measures 1.6 x 1.7 x 2.1 cm. Intraperitoneal space: Minimal intrapelvic fluid, likely physiologic. Urinary bladder: Normal. IMPRESSION: No acute findings.
[2022-08-04 18:49] LABS: Appearance,Urine CLEAR (Clear); Bilirubin,Urine Negative (Negative); Blood, Urine Negative (Negative); Color,Urine YELLOW (Yellow); Glucose,Urine (UA) Negative (Negative); Ketones,Urine Negative (Negative); Leukocyte Esterase,Urine Negative (Negative); Microscopic, Urine URINE MICROSCOPIC (MICROSCOPIC); Nitrate,Urine Negative (Negative); PH,Urine 6.5 (5.0-8.5); Protein,Urine Negative (Negative); Urobilinogen,Urine 0.2 EU/dl (0.2)
[2022-08-04 19:20] LABS: Bacteria,Urine Trace /lpf; Squamous Epithelial Cell,Urine Occasional #/hpf (0-5); WBC,Urine Occasional #/hpf (0-3)
== END ==
PROVIDERS: PCP Physician Assistant; Visit Provider Nurse Practitioner Family
DX: R10.2 Pelvic and perineal pain (principal)
CPT/HCPCS: 76856; 81001

== ENCOUNTER → 2022-09-16 16:11 | Outpatient (CLI) | payer OTHER, SELFPAY ==
[2022-09-16 13:48] LABS: Barbiturates Screen,Urine Negative ng/ml (<200)
[2022-09-16 13:49] LABS: Benzodiazepines Screen,Urine Negative ng/ml (<200)
[2022-09-16 13:50] LABS: Amphetamine/Metha Screen,Urine Negative ng/ml (<1000); Cannabinoid Screen,Urine Negative ng/ml (<50)
[2022-09-16 13:51] LABS: Cocaine Screen,Urine Negative ng/ml (<300)
[2022-09-16 13:52] LABS: Methadone Screen,Urine Negative ng/ml (<300); Opiate Screen,Urine Negative ng/ml (<300)
[2022-09-16 13:53] LABS: Phencyclidine Screen,Urine Negative ng/ml (<25)
== END ==
PROVIDERS: PCP Nurse Practitioner Family; Visit Provider Nurse Practitioner Family
DX: F90.9 Attention-deficit hyperactivity disorder, unspecified type (principal); Z79.899 Other long term (current) drug therapy
CPT/HCPCS: 80305

== ENCOUNTER → 2022-09-30 17:07 | Outpatient (CLI) | payer OTHER, SELFPAY ==
[2022-09-30 17:28] LABS: Basophils # 0.1 K/mm3 (0-0.2); Basophils % 0.8 % (0.1-2.0); Eosinophils # 0.2 K/mm3 (0.0-0.4); Eosinophils % 2.7 % (0.1-12.0); Hematocrit 43.3 % (37.0-47.0); Lymphocytes # 1.8 K/mm3 (0.7-4.5); Lymphocytes % 26.8 % (10-50); Mean Corpuscular HGB Conc 32.4 g/dL (31.8-35.4); Mean Corpuscular Hemoglobin 29.6 pg (27.0-31.2); Mean Corpuscular Volume 91.5 fl (81-99); Mean Platelet Volume 7.3 fl (7.4-10.4); Monocytes # 0.4 K/mm3 (0.1-1.0); Monocytes % 6.4 % (1.7-9.3); Neutrophils # 4.2 K/mm3 (1.8-7.8); Neutrophils % 63.4 % (37.0-80.0); Platelet Count 351 K/mm3 (142-424); Red Blood Count 4.74 M/mm3 (4.20-5.40); Red Cell Distribution Width 12.2 % (11.5-17.5); White Blood Count 6.6 K/mm3 (4.8-10.8)
[2022-09-30 19:06] LABS: Free T4 (Free Thyroxine) 1.64 ng/dl (0.78-2.19)
[2022-09-30 21:15] LABS: Alanine Aminotransferase 17 U/L (12-78); Albumin Level 4.9 g/dl (3.5-5.0); Albumin/Globulin Ratio 2.1 (1.1-1.8); Alkaline Phosphatase 72 U/L (38-126); Anion Gap 18.1 mEq/L (5-15); Aspartate Amino Transferase 24 U/L (14-36); Bilirubin,Total 0.6 mg/dl (0.2-1.3); Blood Urea Nitrogen 6 mg/dl (7-17); Calcium 9.6 mg/dl (8.4-10.2); Carbon Dioxide 24 mmol/L (22.0-30.0); Chloride 102 mmol/L (98-107); Estimated Glomerular Filt Rate 102 ml/min (>60); GFR (African American) 123 ML/MIN (>60); Globulin 2.3 g/dL (1.3-3.2); Glucose 83 mg/dl (74-100); Potassium 4.1 mmoL/L (3.5-5.1); Sodium 140 mmol/L (136-145); Total Protein,Serum 7.2 g/dl (6.3-8.2)
[2022-09-30 21:46] LABS: Thyroid Stimulating Hormone 0.22 uIU/mL (0.465-4.68)
== END ==
PROVIDERS: PCP Physician Assistant; Visit Provider Physician Assistant
DX: R53.83 Other fatigue (principal); K59.00 Constipation, unspecified
CPT/HCPCS: 36415; 80053; 84439; 84443; 85025

== ENCOUNTER → 2022-10-17 23:09 | Outpatient (CLI) | payer OTHER, SELFPAY | PROVIDERS: PCP Student in an Organized Health Care Education/Training Program; Visit Provider Student in an Organized Health Care Education/Training Program | DX: J02.9 Acute pharyngitis, unspecified (principal); R51.9 Headache, unspecified; R11.2 Nausea with vomiting, unspecified; R19.7 Diarrhea, unspecified | CPT/HCPCS: 87635; C9803; U0003; U0005 ==

== ENCOUNTER → 2022-11-21 09:40 | Outpatient (CLI) | payer OTHER, SELFPAY ==
[2022-11-21 12:34] LABS: Basophils % 0.6 % (0.1-2.0); Eosinophils # 0.1 K/mm3 (0.0-0.4); Eosinophils % 1.9 % (0.1-12.0); Hematocrit 44.8 % (37.0-47.0); Hemoglobin 14.4 g/dL (12.2-16.2); Lymphocytes # 1.9 K/mm3 (0.7-4.5); Lymphocytes % 31.1 % (10-50); Mean Corpuscular Hemoglobin 29.5 pg (27.0-31.2); Mean Platelet Volume 8.2 fl (7.4-10.4); Monocytes # 0.3 K/mm3 (0.1-1.0); Monocytes % 5.1 % (1.7-9.3); Neutrophils # 3.8 K/mm3 (1.8-7.8); Neutrophils % 61.2 % (37.0-80.0); Platelet Count 365 K/mm3 (142-424); Red Blood Count 4.87 M/mm3 (4.20-5.40); Red Cell Distribution Width 13.2 % (11.5-17.5); White Blood Count 6.2 K/mm3 (4.8-10.8)
[2022-11-21 14:02] LABS: 25-OH Vitamin D, Total 107 ng/mL (30-100)
[2022-11-21 14:03] LABS: Alanine Aminotransferase 18 U/L (12-78); Albumin Level 4.4 g/dl (3.5-5.0); Albumin/Globulin Ratio 1.9 (1.1-1.8); Alkaline Phosphatase 71 U/L (38-126); Anion Gap 12.5 mEq/L (5-15); Aspartate Amino Transferase 25 U/L (14-36); Bilirubin,Total 0.4 mg/dl (0.2-1.3); Blood Urea Nitrogen 8 mg/dl (7-17); Calcium 9.2 mg/dl (8.4-10.2); Carbon Dioxide 25 mmol/L (22.0-30.0); Chloride 106 mmol/L (98-107); Chol/HDL Ratio 3.2 (1-3.5); Cholesterol 236 mg/dl (140-200); Estimated Glomerular Filt Rate 102 ml/min (>60); GFR (African American) 123 ML/MIN (>60); Globulin 2.3 g/dL (1.3-3.2); Glucose 115 mg/dl (74-100); HDL Cholesterol 74 mg/dl (40-60); Potassium 4.5 mmoL/L (3.5-5.1); Sodium 139 mmol/L (136-145); Total Protein,Serum 6.7 g/dl (6.3-8.2); Triglycerides 143 mg/dl (30-150); VLDL Cholesterol 29 mg/dL (0-40)
[2022-11-21 14:14] LABS: Direct LDL Cholesterol 109.78 mg/dL (100-129)
[2022-11-21 14:20] LABS: Free T4 (Free Thyroxine) 1.26 ng/dl (0.78-2.19)
[2022-11-21 14:34] LABS: Thyroid Stimulating Hormone 2.82 uIU/mL (0.465-4.68)
[2022-11-21 14:53] LABS: Vitamin B12 460 pg/mL (239-931)
== END ==
PROVIDERS: PCP Physician Assistant; Visit Provider Physician Assistant
DX: R53.83 Other fatigue (principal); E03.9 Hypothyroidism, unspecified; K59.00 Constipation, unspecified; Z79.899 Other long term (current) drug therapy; E55.9 Vitamin D deficiency, unspecified
CPT/HCPCS: 36415; 80053; 80061; 82306; 82607; 84439; 84443; 85025

== ENCOUNTER 2022-12-09 17:31 | Emergency (ER) | payer OTHER, SELFPAY ==
[2022-12-09 17:33] VITALS: BP 133/78; PULSE 82; RESP 14; TEMP 36.6; O2SAT 100; BMI 31.5
[2022-12-09 18:00] VITALS: BP 138/96; PULSE 76; O2SAT 99
--- NOTE | 2022-12-09 18:06 | PC.NURSE ---
charge nurse was at bs when rounding on pt
[2022-12-09 18:10] LABS: Microscopic, Urine URINE MICROSCOPIC (MICROSCOPIC)
[2022-12-09 18:29] LABS: Appearance,Urine CLEAR (Clear); Bilirubin,Urine Negative (Negative); Blood, Urine 1+ (Negative); Color,Urine YELLOW (Yellow); Glucose,Urine (UA) Negative (Negative); Ketones,Urine Negative (Negative); Leukocyte Esterase,Urine Negative (Negative); Nitrate,Urine Negative (Negative); Protein,Urine Negative (Negative); Urobilinogen,Urine 0.2 EU/dl (0.2)
[2022-12-09 18:30] VITALS: BP 132/86; PULSE 74; O2SAT 100
[2022-12-09 18:44] LABS: Basophils % 0.5 % (0.1-2.0); Chloride 103 mmol/L (98-107); Eosinophils # 0.1 K/mm3 (0.0-0.4); Eosinophils % 1.2 % (0.1-12.0); Hematocrit 45.3 % (37.0-47.0); Hemoglobin 14.5 g/dL (12.2-16.2); Lymphocytes # 2.7 K/mm3 (0.7-4.5); Lymphocytes % 36.4 % (10-50); Mean Corpuscular Volume 93.7 fl (81-99); Mean Platelet Volume 7.9 fl (7.4-10.4); Monocytes # 0.6 K/mm3 (0.1-1.0); Monocytes % 7.4 % (1.7-9.3); Neutrophils # 4.1 K/mm3 (1.8-7.8); Neutrophils % 54.5 % (37.0-80.0); Platelet Count 382 K/mm3 (142-424); Red Blood Count 4.84 M/mm3 (4.20-5.40); White Blood Count 7.5 K/mm3 (4.8-10.8)
[2022-12-09 18:45] LABS: Potassium 3.3 mmoL/L (3.5-5.1); Sodium 138 mmol/L (136-145)
[2022-12-09 18:46] LABS: WBC,Urine Occasional #/hpf (0-3)
[2022-12-09 18:47] LABS: Bacteria,Urine 2+ /lpf
[2022-12-09 18:47] LABS: Alanine Aminotransferase 20 U/L (12-78); Amylase 61 U/L (30-110); Anion Gap 11.3 mEq/L (5-15); Aspartate Amino Transferase 29 U/L (14-36); Blood Urea Nitrogen 7 mg/dl (7-17); Carbon Dioxide 27 mmol/L (22.0-30.0); Creatinine Clearance Estimated 137 mL/min (50-200); Estimated Glomerular Filt Rate 87 ml/min (>60); GFR (African American) 106 ML/MIN (>60)
[2022-12-09 18:48] LABS: Albumin Level 4.2 g/dl (3.5-5.0); Albumin/Globulin Ratio 1.5 (1.1-1.8); Alkaline Phosphatase 76 U/L (38-126); Bilirubin,Total 0.5 mg/dl (0.2-1.3); Calcium 9.5 mg/dl (8.4-10.2); Globulin 2.8 g/dL (1.3-3.2); Glucose 97 mg/dl (74-100); Lipase 59 U/L (23-300)
--- NOTE | 2022-12-09 19:57 | CT_ITS ---
PROCEDURE INFORMATION: Exam: CT Abdomen And Pelvis With Contrast Exam date and time: 12/09/2022 8:19 PM Age: 27 years old Clinical indication: Abdominal pain; Localized; Left; Prior surgery; Surgery date: 6+ months; Surgery type: Gastric sleeve surgery; Additional info: Previous gastric sleeve, L hemiabdominal pain TECHNIQUE: Imaging protocol: Computed tomography of the abdomen and pelvis with contrast. Radiation optimization: All CT scans at this facility use at least one of these dose optimization techniques: automated exposure control; mA and/or kV adjustment per patient size (includes targeted exams where dose is matched to clinical indication); or iterative reconstruction. Contrast material: ISOVUE; Contrast volume: 75 ml; Contrast route: IV; REPORTING DATA: Count of CT and Cardiac NM exams in prior 12 months: This patient has received [address] and 0 known cardiac nuclear medicine studies in the 12 months prior to the current study. COMPARISON: CT ABDOMEN PELVIS WO CON 04/07/2022 10:46 PM FINDINGS: Liver: Normal. No mass. Gallbladder and bile ducts: Normal. No calcified stones. No ductal dilation. Pancreas: Normal. No ductal dilation. Spleen: Normal. No splenomegaly. Adrenal glands: Normal. No mass. Kidneys and ureters: Normal. No hydronephrosis. Stomach and bowel: Postsurgical changes compatible with gastric sleeve bariatric surgery with chain suture at the greater curvature. Appendix: No evidence of appendicitis. Intraperitoneal space: Unremarkable. No free air. No significant fluid collection. Vasculature: Unremarkable. No abdominal aortic aneurysm. Lymph nodes: Unremarkable. No enlarged lymph nodes. Urinary bladder: Unremarkable as visualized. Reproductive: Unremarkable as visualized. Bones/joints: Unremarkable. No acute fracture. Soft tissues: Normal. IMPRESSION: No acute findings.
--- NOTE | 2022-12-09 19:58 | HMH.EDGENADL ---
Discharge Plan Disposition Patient Disposition: Home, Self-Care Condition: Fair Prescriptions Prescriptions: New ondansetron 4 mg tablet,disintegrating 4 mg PO Q8H PRN (Reason: nausea and vomiting) 4 Days Qty: 16 0RF No Action levothyroxine [Synthroid] 112 mcg tablet 112 mcg PO DAILY Qty: 90 0RF propranolol 60 mg capsule,extended release 24 hr 60 mg PO BID Qty: 180 3RF dextroamphetamine-amphetamine [Adderall] 10 mg tablet 10 mg PO BID Qty: 60 0RF Rx Instructions: administer doses at least 4-6 hours apart rimegepant 75 mg tablet,disintegrating 75 mg PO Q OTHER DAY 30 Days Qty: 15 1RF One Daily Women's 27-0.4 mg tablet 1 tab PO .qd Qty: 90 3RF temazepam [Restoril] 15 mg capsule 15 mg PO HS Qty: 30 0RF fluoxetine 40 mg capsule See Rx Instructions .ROUTE .COMPLEX Qty: 90 0RF Dose Instruction: TAKE ONE CAPSULE BY MOUTH ONCE A DAY Rx Instructions: TAKE ONE CAPSULE BY MOUTH ONCE A DAY fluoxetine 20 mg capsule See Rx Instructions .ROUTE .COMPLEX Qty: 90 0RF Dose Instruction: TAKE ONE CAPSULE BY MOUTH ONCE A DAY WITH 40MG CAPSULE (TOTAL DOSE IS 60MG) Rx Instructions: TAKE ONE CAPSULE BY MOUTH ONCE A DAY WITH 40MG CAPSULE (TOTAL DOSE IS 60MG) clonazepam 0.5 mg tablet 0.5 mg PO BID Qty: 60 0RF propranolol 20 mg tablet 20 mg PO DAILY Qty: 5 0RF atorvastatin [Lipitor] 10 mg tablet 10 mg PO HS Qty: 30 2RF Referrals Follow up/Referrals: Jerod Louis MD [Primary Care Provider] - See instructions Activity Restrictions/Add. Instructions Additional Instructions/Restrictions: At this time. Patient be discharged home. If new or worsening symptoms please do not hesitate to return the emergency department. Please follow-up with your family doctor within 1 week if symptoms persist. Please take your medications as prescribed. Clinical Impressions Clinical Impression: Abdominal pain, Diarrhea, Acute hypokalemia Instructions Patient Instructions: DI for Acute Abdominal Pain Discharge ED Provider: Haroon Salazar General Adult HPI General Chief complaint: Abdominal Pain Stated complaint: abd pain Time Seen by Provider: 12/09/22 19:14 Mode of Arrival: Ambulatory Source of Information: Patient Limitations: No Limitations Description of Symptoms (Recalled from ER Triage Doc. by RN): c/o abdomen pain for 3 weeks that has advanced to nausea and burping the last week. Pt states her PCP has scheduled her for a US but that is one week away and the pain has gotten so bad she cant take it. HX of gastric sleeve in 2019 History of Present Illness HPI narrative: Patient is a 27-year-old female with past medical history of previous gastric sleeve who presents emergency department for evaluation of abdominal pain. Onset was subacute, over the last 3 weeks. Patient has had left hemiabdominal pain. Over the last 72 hours she has had multiple episodes of nonbloody diarrhea. She has decreased p.o. intake with associated nausea. Adequate urine output. No other surgical abdominal history. No other acute complaints at this time. Last menstrual period was supposed to begin approximately 2 days ago. Related Data Previous Rx's Medication Instructions Recorded nilmhrtvuosw-Nr-kubt-minerals 27 1 tab PO .qd vitamin deficiency 05/27/22 mg-0.4 mg tablet #90 tabs levothyroxine 112 mcg tablet 112 mcg PO DAILY #90 tabs 09/16/22 (Synthroid) propranolol 60 mg capsule,24 60 mg PO BID #180 caps 09/16/22 hr,extended release rimegepant 75 mg disintegrating 75 mg PO Q OTHER DAY migraine 10/15/22 tablet prevention 30 days #15 tabs temazepam 15 mg capsule (Restoril) 15 mg PO HS #30 caps 10/16/22 fluoxetine 20 mg capsule See Rx Instructions .Route 10/30/22 .COMPLEX #90 caps fluoxetine 40 mg capsule See Rx Instructions .Route 10/30/22 .COMPLEX #90 caps clonazepam 0.5 mg tablet 0.5 mg PO BID Anxiety #60 tabs 11/04/22 atorvastatin 10 mg tablet (Lipi
[2022-12-09 20:04] LABS: Urine Pregnancy, HCG Qual. Negative (Negative)
--- NOTE | 2022-12-09 21:42 | PC.NURSE ---
in room talking with patient in room at this time.
[2022-12-09 21:46] VITALS: BP 132/86; PULSE 81; RESP 16; TEMP 36.6
== END 2022-12-09 21:51 | disposition home or self-care (01) ==
PROVIDERS: Emergency Provider Emergency Medicine; PCP Emergency Medicine
DX: R10.9 Unspecified abdominal pain (principal); R19.7 Diarrhea, unspecified; E87.6 Hypokalemia; F41.9 Anxiety disorder, unspecified; F32.A Depression, unspecified; E78.5 Hyperlipidemia, unspecified; E03.9 Hypothyroidism, unspecified
CPT/HCPCS: 74177; 80053; 81001; 81025; 82150; 83690; 85025; 87086; 96360; 99285; Q9967

== ENCOUNTER → 2022-12-18 17:42 | Outpatient (CLI) | payer OTHER, SELFPAY | PROVIDERS: PCP Emergency Medicine; Visit Provider Emergency Medicine | DX: E87.6 Hypokalemia (principal) | CPT/HCPCS: 84132 ==

== ENCOUNTER → 2023-01-30 21:15 | Outpatient (CLI) | payer OTHER, SELFPAY ==
[2023-01-30 18:21] LABS: Amphetamine/Metha Screen,Urine Positive ng/ml (<1000); Barbiturates Screen,Urine Negative ng/ml (<200)
[2023-01-30 18:22] LABS: Benzodiazepines Screen,Urine Negative ng/ml (<200)
[2023-01-30 18:23] LABS: Cannabinoid Screen,Urine Negative ng/ml (<50); Cocaine Screen,Urine Negative ng/ml (<300)
[2023-01-30 18:24] LABS: Methadone Screen,Urine Negative ng/ml (<300)
[2023-01-30 18:25] LABS: Phencyclidine Screen,Urine Negative ng/ml (<25)
[2023-01-30 18:26] LABS: Opiate Screen,Urine Negative ng/ml (<300)
== END ==
PROVIDERS: PCP Emergency Medicine; Visit Provider Emergency Medicine
DX: F90.9 Attention-deficit hyperactivity disorder, unspecified type (principal)
CPT/HCPCS: 80305

== ENCOUNTER → 2023-02-11 07:05 | Outpatient (CLI) | payer OTHER, SELFPAY ==
--- NOTE | 2023-02-11 07:13 | US_ITS ---
FINAL REPORT CLINICAL HISTORY: abdominal pain FINDINGS: Sonographic images of the right upper quadrant were obtained. The pancreas is partially obscured. There is fatty infiltration of the liver. The gallbladder appears normal without evidence of gallstones.There is no evidence of biliary ductal dilatation.The common duct measures 3 mm. Limited images of the right kidney are unremarkable. IMPRESSION: Fatty liver. Reviewed, Interpreted and Dictated by Jameson Delgado III, MD Transcribed by Lolita Spear Authenticated and [facility]
== END ==
PROVIDERS: PCP Emergency Medicine; Visit Provider Emergency Medicine
DX: R10.9 Unspecified abdominal pain (principal)
CPT/HCPCS: 76705

== ENCOUNTER → 2023-02-12 10:10 | Outpatient (CLI) | payer OTHER, SELFPAY ==
--- NOTE | 2023-02-12 10:15 | NM_ITS ---
FINAL REPORT CLINICAL HISTORY: UPPER ABD PAIN 10:40 am 8.16 mci tc choletec 11:50 am 1.5 mcg of cck injected into lt ant no pain with cck COMPARISON: None FINDINGS: Sequential anterior projection images of the abdomen were obtained after the intravenous injection of 8.16 mCi technetium 99m Choletec. There is normal uptake of radiotracer by the liver. The bile ducts are visualized by 5 minutes. Gallbladder activity is seen by 5 minutes. Bowel activity is noted by 35 minutes. After 1 hour, 1.5 ?g of CCK was injected intravenously for calculation of gallbladder ejection fraction. The gallbladder ejection fraction is 96%, which is within normal limits. IMPRESSION: No evidence of cystic duct or bile duct obstruction. Normal gallbladder ejection fraction of 96%. Reviewed, Interpreted and Dictated by Jameson Delgado III, MD Transcribed by Liberty Parker Authenticated and [facility]
== END ==
PROVIDERS: PCP Emergency Medicine; Visit Provider Physician Assistant
DX: R10.10 Upper abdominal pain, unspecified (principal)
CPT/HCPCS: 78227; A9537; J2805

== ENCOUNTER → 2023-02-25 14:41 | Outpatient (CLI) | payer OTHER, SELFPAY ==
--- NOTE | 2023-02-25 14:42 | MR_ITS ---
FINAL REPORT CLINICAL HISTORY: neck pain. HEADACHE. NO INJURY OR TRAUMA COMPARISON: None FINDINGS: Multiplanar MR imaging of the cervical spine was performed without contrast. On the sagittal T2-weighted images, disc degeneration is seen at multiple levels. There is no evidence of fracture. The vertebral alignment is normal. The cervical spinal cord has an unremarkable appearance without evidence of mass, edema or syrinx. No significant canal stenosis is identified. The cervicomedullary junction is normal. C2-3: There is no significant canal stenosis or neural foraminal narrowing. C3-4: There is no significant canal stenosis or neural foraminal narrowing. C4-5: There is no significant canal stenosis or neural foraminal narrowing. C5-6: An annular bulge is present. There is no significant canal stenosis or neural foraminal narrowing. C6-7: An annular bulge is present. There is no significant canal stenosis or neural foraminal narrowing. C7-T1: There is no significant canal stenosis or neural foraminal narrowing. IMPRESSION: Small annular bulges at the C5-6 and C6-7 levels, otherwise unremarkable MRI of the cervical spine. Reviewed, Interpreted and Dictated by Jameson Delgado III, MD Transcribed by Liberty Parker Authenticated and [facility]
== END ==
LOC: RAD 14:42
PROVIDERS: PCP Emergency Medicine; Visit Provider Emergency Medicine
DX: M54.12 Radiculopathy, cervical region (principal)
CPT/HCPCS: 72141; 76376

== ENCOUNTER → 2023-03-06 23:00 | Outpatient (CLI) | payer OTHER, SELFPAY ==
[2023-03-06 18:05] LABS: Adenovirus,PCR Not Detected (NotDetected); Coronavirus 19, PCR Not Detected (NotDetected); Coronavirus 229E Not Detected (NotDetected); Coronavirus NL63 Not Detected (NotDetected); Coronavirus OC43 Not Detected (NotDetected); Coronovirus HKU1,PCR Not Detected (NotDetected); Human Metapneumovirus Not Detected (NotDetected); Influenza A, PCR Not Detected (NotDetected); Influenza AH1, 2009 Not Detected (NotDetected); Influenza AH1, PCR Not Detected (NotDetected); Influenza AH3,PCR Not Detected (NotDetected); Influenza B, PCR Not Detected (NotDetected); Parainfluenza 1, PCR Not Detected (NotDetected); Parainfluenza 2, PCR Not Detected (NotDetected); Parainfluenza 3, PCR Not Detected (NotDetected); Parainfluenza 4, PCR Not Detected (NotDetected); Rhinovirus/Enterovirus Not Detected (NotDetected)
[2023-03-06 20:45] LABS: Respiratory Syncytial Virus Detected (NotDetected)
== END ==
PROVIDERS: PCP Emergency Medicine; Visit Provider Student in an Organized Health Care Education/Training Program
DX: R05.9 Cough, unspecified (principal); B97.4 Respiratory syncytial virus as the cause of diseases classified elsewhere
CPT/HCPCS: 87632; 87635

== ENCOUNTER → 2023-03-31 23:00 | Outpatient (CLI) | payer OTHER, SELFPAY ==
[2023-03-31 18:48] LABS: Basophils % 0.5 % (0.1-2.0); Eosinophils # 0.1 K/mm3 (0.0-0.4); Eosinophils % 2.3 % (0.1-12.0); Hematocrit 40.7 % (37.0-47.0); Hemoglobin 13.9 g/dL (12.2-16.2); Lymphocytes # 1.7 K/mm3 (0.7-4.5); Lymphocytes % 34.3 % (10-50); Mean Corpuscular Hemoglobin 31.4 pg (27.0-31.2); Mean Corpuscular Volume 92.3 fl (81-99); Mean Platelet Volume 8.4 fl (7.4-10.4); Monocytes # 0.4 K/mm3 (0.1-1.0); Neutrophils # 2.8 K/mm3 (1.8-7.8); Neutrophils % 55.9 % (37.0-80.0); Platelet Count 296 K/mm3 (142-424); Red Blood Count 4.42 M/mm3 (4.20-5.40); Red Cell Distribution Width 13.3 % (11.5-17.5); White Blood Count 5.1 K/mm3 (4.8-10.8)
[2023-03-31 19:47] LABS: Alanine Aminotransferase 20 U/L (12-78); Albumin Level 4.5 g/dl (3.5-5.0); Alkaline Phosphatase 60 U/L (38-126); Anion Gap 11.7 mEq/L (5-15); Aspartate Amino Transferase 26 U/L (14-36); Bilirubin,Total 0.7 mg/dl (0.2-1.3); Blood Urea Nitrogen 8 mg/dl (7-17); Calcium 8.9 mg/dl (8.4-10.2); Carbon Dioxide 22 mmol/L (22.0-30.0); Chloride 104 mmol/L (98-107); Chol/HDL Ratio 3.4 (1-3.5); Cholesterol 248 mg/dl (140-200); Estimated Glomerular Filt Rate 102 ml/min (>60); GFR (African American) 123 ML/MIN (>60); Globulin 2.3 g/dL (1.3-3.2); Glucose 86 mg/dl (74-100); HDL Cholesterol 73 mg/dl (40-60); Potassium 3.7 mmoL/L (3.5-5.1); Sodium 134 mmol/L (136-145); Total Protein,Serum 6.8 g/dl (6.3-8.2); Triglycerides 48 mg/dl (30-150); VLDL Cholesterol 10 mg/dL (0-40)
[2023-03-31 19:58] LABS: Direct LDL Cholesterol 131.11 mg/dL (100-129)
[2023-03-31 20:18] LABS: Thyroid Stimulating Hormone 1.92 uIU/mL (0.465-4.68)
== END ==
PROVIDERS: PCP Internal Medicine; Visit Provider Internal Medicine
DX: E03.9 Hypothyroidism, unspecified (principal); Z79.899 Other long term (current) drug therapy
CPT/HCPCS: 80053; 80061; 83036; 84443; 85025

== ENCOUNTER 2023-06-11 21:51 | Outpatient (CLI) | payer OTHER, SELFPAY ==
[2023-06-11 18:14] LABS: Coronavirus 19, PCR Not Detected (NotDetected); Influenza A, PCR Not Detected (NotDetected); Influenza B, PCR Not Detected (NotDetected)
== END 2023-06-11 23:59 ==
LOC: LAB.DROPOF 21:51
PROVIDERS: PCP Internal Medicine; Visit Provider Internal Medicine
DX: R05.1 Acute cough (principal); R06.09 Other forms of dyspnea; R42 Dizziness and giddiness; Z20.822 Contact with and (suspected) exposure to COVID-19
CPT/HCPCS: 87636

== ENCOUNTER 2024-04-15 11:58 | Emergency (ER) | payer BC, OTHER, SELFPAY ==
[2024-04-15 13:05] VITALS: BP 133/88; PULSE 101; RESP 19; TEMP 37.2; O2SAT 98; BMI 28.1
--- NOTE | 2024-04-15 13:17 | EXP.UTC ---
Discharge Plan Disposition Patient Disposition: Home, Self-Care Condition: Good Prescriptions Prescriptions: New guaifenesin [Mucinex] 600 mg tablet extended release 12hr 600 - 1,200 mg PO BID PRN (Reason: cough) Qty: 20 0RF No Action levothyroxine 125 mcg tablet 137 mcg PO DAILY Patient Comments: TAKE 1 TABLET BY MOUTH ONCE DAILY BEFORE BREAKFAST levomefolate calcium [L-Methylfolate] 15 mg tablet 15 mg PO DAILY Qty: 30 11RF Qulipta 60 mg tablet 60 mg PO DAILY Qty: 30 2RF lorazepam 1 mg tablet 1 mg PO BID 30 Days Qty: 60 0RF temazepam 7.5 mg capsule 7.5 mg PO HS 30 Days Qty: 30 0RF dextroamphetamine-amphetamine [Adderall XR] 10 mg capsule,extended release 24hr 10 mg PO DAILY Qty: 30 0RF Rx Instructions: Take with Adderall XR 30 mg daily. sertraline 100 mg tablet 150 mg PO DAILY Qty: 45 2RF labetalol 100 mg tablet 300 mg PO DAILY MDD 300 mg Qty: 90 0RF Rx Instructions: 100 mg po qam and 200 mg po qhs Referrals Follow up/Referrals: Gilbert Chaparro DO [Primary Care Provider] - See instructions Activity Restrictions/Add. Instructions Additional Instructions/Restrictions: *Monitor Temp, Over the counter Motrin or Tylenol as directed/as needed Tylenol every 4 hours and Motrin every 6 hours (as long as your family doctor has told you that you can take it) for fever or pain. and straight to ER if unable to lower temp less than 101.0 after medication given *Warm salt water gargles may help to soothe the throat *Throat Lozenges? *Warm fluids like tea with honey may help to soothe the throat? *Sleep elevated *Humidifier/Vaporizer COVID is a virus, it can last 3-7 days Follow up IMMEDIATELY for new or worsening symptoms or no Noticeable improvement over the next 48-72 hours. 911 for difficulty breathing or swallowing Clinical Impressions Clinical Impression: Viral syndrome Instructions Patient Instructions: DI for Viral Syndrome, DI for COVID-19 (Suspected or Confirmed ) Print Language Print Language: Macedonian Discharge ED Provider: Adrianne López [facility] HPI General Stated complaint: covid+, fever, body aches Mode of Arrival: Ambulatory Source of Information: Patient Limitations: No Limitations Time Seen by Provider: 04/15/24 13:17 Description of Symptoms (Recalled from Triage Doc. by RN): PATIENT C/O BODY ACHES, HEADACHE, LOTS OF MUCOUS, AND CONGESTION. PATIENT IS POSITIVE FOR COVID HEENT Symptoms (Recalled from RN notes): Yes Resp Symptoms (Recalled from RN notes): No Skin Symptoms (Recalled from RN notes): No MS Symptoms (Recalled from RN notes): No Functional Status (Recalled from RN notes): WNL History of Present Illness Provider Complaint: Patient states that she just tested positive for COVID at work was wanting to get a steriod shot States that she is having nasal congestion, body aches, chills, and headache Related Data Home Medications ?Medication ?Instructions ?Recorded ?Confirmed levothyroxine 125 mcg tablet 137 mcg PO DAILY 02/03/24 04/15/24 Previous Rx's ?Medication ?Instructions ?Recorded levomefolate calcium 15 mg tablet 15 mg PO DAILY #30 tabs 09/30/23 (L-Methylfolate) atogepant 60 mg tablet (Qulipta) 60 mg PO DAILY #30 tabs 02/03/24 lorazepam 1 mg tablet 1 mg PO BID 30 days #60 tabs 03/17/24 temazepam 7.5 mg capsule 7.5 mg PO HS 30 days #30 caps 03/17/24 dextroamphetamine-amphetamine ER 10 mg PO DAILY #30 caps 04/04/24 10 mg 24hr capsule,extend release (Adderall XR) sertraline 100 mg tablet 150 mg (1.5 x 100 mg) PO DAILY #45 04/11/24 tabs labetalol 100 mg tablet 300 mg (3 x 100 mg) PO DAILY 04/12/24 migraine prevention #90 tabs guaifenesin 600 mg tablet, 600 - 1,200 mg (1 - 2 x 600 mg) PO 04/15/24 extended release 12 hr (Mucinex) BID PRN cough #20 tabs Allergies Allergy/AdvReac Type Severity Reaction Status Date / Time morphine (MORPHINE) Allergy Unknown Verified 02/17/24 10:18 Worker's Comp Is this a Worker's Comp case?: No [facility] Disclaimer: The information contained in this section may have been updated after the patient was seen, as this information can be updated by other users. Medical History History of pre-eclampsia Acute cough URI (upper respiratory infection) I think that this patient has an upper respiratory tract infection that is viral. It may well be influenza or COVID both of which she has been exposed to. She denies being exposed to RSV or strep. Will check both of these today. I have told her regardless if it is a viral upper respiratory tract infection the treatment is purely symptomatic and waited out until it resolves. Addendum: This patient's COVID screen and influenza screen both were negative. She is to continue [id number] therapies as she has been doing. Palpitations Abdominal pain Dizziness Dyspnea Dizziness Dyspnea Migraine Hyperlipidemia Patient's lipid panel done March 2023 reveals a triglyceride of 48 total cholesterol 248 and LDL of 131 and HDL 73. I would just follow for now. Did discuss omega-3 fatty acids and if she takes this I think it will be fine. Acne Anxiety and depression Obesity Insomnia DUB (dysfunctional uterine bleeding) Vitamin D deficiency (~11/22/17) She is taking a multivitamin with calcium. Last vitamin D done in October 2022 was very high. Will recheck this down the road. Hypothyroidism Her TSH done in March of this last year was 1.92 which is fine. Will continue with her current dose. 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 Surgical History Hx of section Bariatric surgery status Family History Other No significant family history Social History Smoking Status: Current every day smoker tobacco type: e-cigarettes smoking status start date: Stating smoking cigarettes around age 18, now vapes daily. 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 current occupational exposures/hazards: No caffeine: Yes major/druze: Islam special major needs: No Have you lived/traveled outside US in past 30 days?: No Contact w/someone who lives/traveled outside US past 30 days?: No Exposure to someone with infectious disease in past 14 days?: Yes Do you have a fever (greater than 100.4 F or 38 C)?: Yes Have you tested positive for COVID-19: Yes Exposed to someone with COVID-19 in past 14 days?: Yes Do you have a sore throat?: No Do you have a cough?: No Do you have any weakness?: No Do you have any diarrhea?: No Are you experiencing any unusual bleeding?: No Do you have any muscle aches/pain?: Yes Do you have any abdominal pain?: No Are you experiencing loss of taste or smell?: No ROS Obtained: Yes All systems reviewed & no additional complaints except as documented and Yes Systems reviewed as appropriate & no additional complaints except as documented Constitutional Constitutional: Reports system reviewed and no additional complaints, except as documented, Reports as per HPI, Reports body ache, Reports chills and Reports headache(s) ENT Ears, Nose, Mouth, and Throat: Reports system reviewed and no additional complaints, except as documented, Reports as per HPI, Reports headache(s) and Reports nasal congestion Cardiovascular Cardiovascular: Reports system reviewed and no additional complaints, except as documented and Reports as per HPI Respiratory Respiratory: Reports system reviewed and no additional complaints, except as documented, Reports as per HPI and Reports cough Gastrointestinal Gastrointestingal: Reports system reviewed and no additional complaints, except as documented and as per HPI Neurologic Neurologic: Reports headache(s) Physical Exam General General appearance: alert and in no apparent distress ENT ENT exam: Present normal exam, normal oropharynx, mucous membranes moist and TM's normal bilaterally Respiratory Respiratory exam: Present normal lung sounds bilaterally; Absent respiratory distress or wheezes Cardiovascular Cardiovascular exam: Present regular rate, normal rhythm and normal heart sounds Abdominal Exam Abdominal exam: Present soft and normal bowel sounds; Absent distention or tenderness Neurological Exam Neurological exam: Present alert, oriented X3 and normal gait Medical Decision Making Medical Records Screening: Per USPSTF and CDC recommendations, given the prevalence of disease in our region, it is our hospital?s policy to screen for HIV and viral Hepatitis for all patients aged 18 and over and those with ongoing risk factors. Floyd Inquiry Pt receiving controlled substance: No Floyd was queried for this patient: No Vital Signs: 04/15/24 13:05 Temperature 98.9 F Temperature Source Oral Pulse Rate [Left Brachial] 101 H Respiratory Rate 19 Blood Pressure [Left Arm] 133/88 Blood Pressure Mean [Left Arm] 103 Blood Pressure Source [Left Arm] Automatic Cuff Blood Pressure Position [Left Arm] Sitting 02 Sat by Pulse Oximetry 98 Oxygen Delivery Method Room Air
[2024-04-15 13:30] VITALS: BP 133/88; PULSE 101; RESP 19; TEMP 37.2; O2SAT 98
== END 2024-04-15 13:33 | disposition home or self-care (01) ==
PROVIDERS: Emergency Provider Nurse Practitioner; PCP Internal Medicine
DX: B34.9 Viral infection, unspecified (principal); U07.1 COVID-19; R51.9 Headache, unspecified; R09.81 Nasal congestion
CPT/HCPCS: 99212; G0381

== ENCOUNTER 2024-05-11 10:37 | Outpatient (CLI) | payer BC, OTHER, SELFPAY ==
[2024-05-11 18:01] LABS: Basophils % 0.6 % (0.1-2.0); Eosinophils # 0.1 K/mm3 (0.0-0.4); Eosinophils % 2.2 % (0.1-12.0); Hematocrit 39.5 % (37.0-47.0); Hemoglobin 12.8 g/dL (12.2-16.2); Lymphocytes % 30.2 % (10-50); Mean Corpuscular HGB Conc 32.4 g/dL (31.8-35.4); Mean Corpuscular Hemoglobin 28.9 pg (27.0-31.2); Mean Corpuscular Volume 89.2 fl (81-99); Mean Platelet Volume 9.9 fl (7.4-10.4); Monocytes # 0.4 K/mm3 (0.1-1.0); Monocytes % 6.8 % (1.7-9.3); Neutrophils # 3.9 K/mm3 (1.8-7.8); Platelet Count 359 K/mm3 (142-424); Red Blood Count 4.43 M/mm3 (4.20-5.40); Red Cell Distribution Width 12.9 % (11.5-17.5); White Blood Count 6.5 K/mm3 (4.8-10.8)
[2024-05-11 18:52] LABS: Alanine Aminotransferase 25 U/L (12-78); Albumin Level 4.5 g/dl (3.5-5.0); Albumin/Globulin Ratio 2.1 (1.1-1.8); Alkaline Phosphatase 66 U/L (38-126); Anion Gap 13.6 mEq/L (5-15); Aspartate Amino Transferase 26 U/L (14-36); Bilirubin,Total 0.2 mg/dl (0.2-1.3); Blood Urea Nitrogen 8 mg/dl (7-17); Calcium 9.9 mg/dl (8.4-10.2); Carbon Dioxide 22 mmol/L (22.0-30.0); Chloride 107 mmol/L (98-107); Estimated Glomerular Filt Rate 100 ml/min (>60); GFR (African American) 121 ML/MIN (>60); Globulin 2.1 g/dL (1.3-3.2); Glucose 82 mg/dl (74-100); Magnesium 1.9 mg/dl (1.6-2.3); Potassium 4.6 mmoL/L (3.5-5.1); Sodium 138 mmol/L (136-145); Total Protein,Serum 6.6 g/dl (6.3-8.2)
[2024-05-11 19:23] LABS: Thyroid Stimulating Hormone 0.75 uIU/mL (0.465-4.68)
== END 2024-05-11 23:59 | disposition home or self-care (01) ==
LOC: LAB.DROPOF 05-12 10:37
PROVIDERS: PCP Internal Medicine; Visit Provider Internal Medicine
DX: O14.93 Unspecified pre-eclampsia, third trimester (principal); R51.9 Headache, unspecified; I15.8 Other secondary hypertension; E66.01 Morbid (severe) obesity due to excess calories; E03.9 Hypothyroidism, unspecified
CPT/HCPCS: 80053; 83735; 84443; 85025

== ENCOUNTER 2024-06-01 09:49 | Outpatient (POV) | payer BC, OTHER, SELFPAY ==
--- NOTE | 2024-06-01 09:57 | A.OFFVIS_ITS ---
HPI Data of Consult Patient: new to practice Consult date: 06/01/24 Requesting Physician: Emelyn Henry APRN Primary Care Provider: Gilbert Chaparro DO Consult Narrative Reason for consult: Neck pain, left shoulder/arm pain, headaches History of present illness: Ms. Rod is a 29 year old female who presents today as a new patient. She is a referral from Dr. Clark's office. Today she rates her pain a 7 out of 10. Patient states that she has been experiencing neck pain since 2020 that is progressively worsened. Patient denies any specific trauma or injury that initially started her symptoms. She does describe it as a constant aching, throbbing sensation that is worse with increased activity and does primarily affect her left upper arm. Patient states that she does notice worsening pain when she has had more activity or worked a long day. Patient states that lifting does also cause worsening symptoms into her upper extremity. Patient states she has tried [id number] medications along with naproxen and Zanaflex, heat and ice, topicals such as lidocaine patches and IcyHot with minimal relief. Patient does do a TENS unit and states it does help temporarily. Patient has been to physical therapy and chiropractor therapy with no additional changes. Patient has even had a breast reduction thinking that that might be aggravating some of her symptoms. Patient does state that the left side has helped always been worse than the right. She does state that she has noticed increased headaches and migraines on a regular basis. Patient states that she does see Dr. Clark and has been prescribed Nurtec and Qulipta. Patient has also tried pillows for positioning. She does do at home stretching and exercise that was physician guided for longer than 12 weeks with some improvement. Patient denies any recent imaging. She states her last was done in 2022.Her Floyd was unavailable for review during today's visit. CC: Emelyn Henry APRN [facility] Disclaimer: The information contained in this section may have been updated after the patient was seen, as this information can be updated by other users. Medical History History of pre-eclampsia Acute cough URI (upper respiratory infection) I think that this patient has an upper respiratory tract infection that is viral. It may well be influenza or COVID both of which she has been exposed to. She denies being exposed to RSV or strep. Will check both of these today. I have told her regardless if it is a viral upper respiratory tract infection the treatment is purely symptomatic and waited out until it resolves. Addendum: This patient's COVID screen and influenza screen both were negative. She is to continue [id number]-[id number] therapies as she has been doing. Palpitations Abdominal pain Dizziness Dyspnea Dizziness Dyspnea Migraine Hyperlipidemia Patient's lipid panel done March 2023 reveals a triglyceride of 48 total cholesterol 248 and LDL of 131 and HDL 73. I would just follow for now. Did discuss omega-3 fatty acids and if she takes this I think it will be fine. Acne Anxiety and depression Obesity Insomnia DUB (dysfunctional uterine bleeding) Vitamin D deficiency (~11/22/17) She is taking a multivitamin with calcium. Last vitamin D done in October 2022 was very high. Will recheck this down the road. Hypothyroidism Her TSH done in March of this last year was 1.92 which is fine. Will continue with her current dose. 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 Surgical History Hx of section Bariatric surgery status Family History Other No significant family history Social History Smoking Status: Current every day smoker tobacco type: e-cigarettes smoking status start date: Stating smoking cigarettes around age 18, now vapes daily. second hand exposure: No alcohol intake: current alcohol intake frequency: holidays/special occasions only substance use type: denies use current occupational status: other Travel in the last 8 weeks: Inside the [facility] household members: family housing: house lives independently: Yes marital status: life partner number of children: 1 education level: college service: No current occupation: [employer] current occupational exposures/hazards: No caffeine: Yes major/sabianist: Spiritism special major needs: No Review of Systems Review of Systems Review of systems:: pertinent systems reviewed and negative unless documented below Review of systems (narrative): Review of Systems: General: No recent weight changes, no fever, no sleep disturbances Respiratory: No cough, no shortness of air, no recurring pulmonary infections Cardiovascular/peripheral vascular: No chest pain, no palpitations, no edema, no shortness of breath Gastrointestinal: No new onset incontinence, normal bowel movements reported Genitourinary: No new onset incontinence Musculoskeletal: Neck pain, left arm pain, headaches, migraines Psychiatric: [Normal mood/affect] Neurological: [Denies weakness in extremities], [denies balance issues] Meds Home Medications and Allergies Home Medications ?Medication ?Instructions ?Recorded ?Confirmed ?Type levomefolate calcium 15 mg tablet 15 mg PO DAILY #30 tabs 09/30/23 05/11/24 Rx (L-Methylfolate) levothyroxine 125 mcg tablet 137 mcg PO DAILY 02/03/24 05/11/24 History sertraline 100 mg tablet 150 mg (1.5 x 100 mg) PO DAILY #45 04/11/24 05/11/24 Rx tabs labetalol 100 mg tablet 300 mg (3 x 100 mg) PO DAILY 04/12/24 05/11/24 Rx migraine prevention #90 tabs atogepant 60 mg tablet (Qulipta) 60 mg PO DAILY #30 tabs 05/05/24 05/11/24 Rx dextroamphetamine-amphetamine ER 10 mg PO DAILY #30 caps 05/06/24 05/11/24 Rx 10 mg 24hr capsule,extend release (Adderall XR) dextroamphetamine-amphetamine ER 30 mg PO DAILY #30 caps 05/06/24 05/11/24 Rx 30 mg 24hr capsule,extend release (Adderall XR) cetirizine 10 mg capsule (All Day 10 mg PO DAILY PRN 05/11/24 05/11/24 History Allergy (cetirizine)) chlorthalidone 25 mg tablet 25 mg PO DAILY #30 tabs 05/11/24 05/11/24 Rx docosahexaenoic acid 200 mg mg PO 05/11/24 05/11/24 History capsule ( DHA) magnesium chloride 71.5 mg 71.5 mg PO DAILY 05/11/24 05/11/24 History (magnesium chloride) tablet,delayed release (Slow-Mag) tizanidine 4 mg capsule 4 mg PO TID PRN muscle spasticity 05/11/24 05/11/24 Rx #90 caps lorazepam 1 mg tablet 1 mg PO BID 30 days #60 tabs 05/16/24 Rx temazepam 7.5 mg capsule 7.5 mg PO HS 30 days #30 caps 05/16/24 Rx baclofen 5 mg tablet 5 mg PO TID #42 tabs 06/01/24 Rx New Prescriptions to Start Prescriptions: baclofen Emelyn Henry Allergies Allergy/AdvReac Type Severity Reaction Status Date / Time morphine (MORPHINE) Allergy Unknown Verified 05/11/24 15:19 Objective Narrative: Physical Exam: General: Alert and oriented x3, no acute distress, pleasant and cooperative Lungs: Respirations even and unlabored, symmetrical chest expansion Eyes: PERRL Musculoskeletal: Flexion and extension of cervical [spine] somewhat guarded secondary to pain, [antalgic gait noted] positive Spurling's test Neurological: Speech clear, no gross sensory deficit Additional findings Additional findings: FINDINGS: Multiplanar MR imaging of the cervical spine was performed without contrast. On the sagittal T2-weighted images, disc degeneration is seen at multiple levels. There is no evidence of fracture. The vertebral alignment is normal. The cervical spinal cord has an unremarkable appearance without evidence of mass, edema or syrinx. No significant canal stenosis is identified. The cervicomedullary junction is normal. C2-3: There is no significant canal stenosis or neural foraminal narrowing. C3-4: There is no significant canal stenosis or neural foraminal narrowing. C4-5: There is no significant canal stenosis or neural foraminal narrowing. C5-6: An annular bulge is present. There is no significant canal stenosis or neural foraminal narrowing. C6-7: An annular bulge is present. There is no significant canal stenosis or neural foraminal narrowing. C7-T1: There is no significant canal stenosis or neural foraminal narrowing. IMPRESSION: Small annular bulges at the C5-6 and C6-7 levels, otherwise unremarkable MRI of the cervical spine. Reviewed, Interpreted and Dictated by Jameson Delgado III, MD Transcribed by Liberty Parker Authenticated and [facility] Assessment and Plan *Assessment and plan (1) Degenerative disc disease, cervical: Status: Acute Category: Medical Code(s): M50.30 - Other cervical disc degeneration, unspecified cervical region (2) Episodic headache: Status: Acute Category: Medical Code(s): R51.9 - Headache, unspecified (3) Episodic migraine: Status: Suspected Category: Medical Code(s): G43.909 - Migraine, unspecified, not intractable, without status migrainosus (4) Cervical radicular pain: Status: Acute Category: Medical Code(s): M54.12 - Radiculopathy, cervical region Plan Patient is experiencing worsening pain in their neck with radiating tingling and burning sensations into her left upper extremity. Patient did have limited range of motion of her cervical spine with a positive Spurling's test. I did discuss with the patient that I do believe they would benefit from a cervical epidural steroid injection. Risk and benefits were discussed with patient and they would like to proceed forward with this plan of care. Patient has tried and failed conservative therapy including oral medications, heat and ice, topicals,, physical therapy, chiropractor and at home stretching exercise for longer than 12 weeks that was physician guided. [Patient has not had any cervical epidurals in the past. I will also submit for updated imaging including an x-ray and MRI of her cervical spine without contrast. Patient will be prescribed a compounded cream and I will also send in a new muscle relaxer of baclofen 5 mg 3 times daily. Patient was instructed to discontinue the tizanidine while she tries this medication. Patient acknowledges understanding and agrees with plan of care. Patient will be scheduled for a ADRIENNE C5-C6 under fluoroscopy. Patient denies any blood thinners. Patient has been instructed to contact the clinic with any concerns before the next appointment. Dr. Frye has reviewed this note and agrees with this plan of care. This note was dictated using voice recognition software and make contain errors or omissions. All injections are used with Lidocaine, Bupivacaine and Depo Medrol. Occasionally urine drug screen is needed to verify patient's compliance with our office pain contract. This is ordered based off specific treatments related to chronic pain with the potential to abuse certain medications.
[2024-06-01 10:41] VITALS: BP 129/82; PULSE 87; RESP 18; O2SAT 100; BMI 31.8
--- NOTE | 2024-06-01 11:00 | XR_ITS ---
FINAL REPORT TECHNIQUE: 3 views cervical spine CLINICAL HISTORY: neck pain, headaches COMPARISON: None FINDINGS: CERVICAL SPINE: AP, lateral and odontoid views of the cervical spine were obtained. There is no prior exam for comparison. There is no acute fracture or malalignment. Vertebral body height is preserved. The precervical soft tissues are normal. IMPRESSION: Unremarkable cervical spine series. Reviewed, Interpreted and Dictated by Surjit Reyes MD Transcribed by Liberty Parker Authenticated and [facility]
== END 2024-06-01 23:59 | disposition home or self-care (01) ==
PROVIDERS: PCP Internal Medicine; Visit Provider Nurse Practitioner Family
DX: G43.909 Migraine, unspecified, not intractable, without status migrainosus (principal); M50.10 Cervical disc disorder with radiculopathy, unspecified cervical region; U07.0 Vaping-related disorder
CPT/HCPCS: 72040; 99202; G0463

== ENCOUNTER 2024-06-14 10:34 | Emergency (ER) | payer BC, OTHER, SELFPAY ==
[2024-06-14 10:35] VITALS: BP 141/88; PULSE 100; RESP 16; TEMP 36.6; O2SAT 99; BMI 29.4
--- NOTE | 2024-06-14 11:13 | ED_ITS ---
Discharge Plan Disposition Patient Disposition: Home, Self-Care Condition: Good Prescriptions Prescriptions: New ketorolac 10 mg tablet 10 mg PO Q8H PRN (Reason: pain) 3 Days Qty: 12 0RF No Action levothyroxine 125 mcg tablet 137 mcg PO DAILY Patient Comments: TAKE 1 TABLET BY MOUTH ONCE DAILY BEFORE BREAKFAST levomefolate calcium [L-Methylfolate] 15 mg tablet 15 mg PO DAILY Qty: 30 11RF doxycycline hyclate 100 mg capsule 100 mg PO BID DHA 200 mg capsule 200 mg PO DAILY All Day Allergy (cetirizine) 10 mg capsule 10 mg PO DAILY PRN (Reason: ALLERGIES) Slow-Mag 71.5 mg tablet,delayed release (DR/EC) 71.5 mg PO DAILY chlorthalidone 25 mg tablet 25 mg PO DAILY Qty: 30 2RF sertraline 100 mg tablet 150 mg PO DAILY Qty: 45 2RF labetalol 100 mg tablet 300 mg PO DAILY MDD 300 mg Qty: 90 0RF Rx Instructions: 100 mg po qam and 200 mg po qhs Qulipta 60 mg tablet 60 mg PO DAILY Qty: 30 2RF temazepam 7.5 mg capsule 7.5 mg PO HS 30 Days Qty: 30 0RF lorazepam 1 mg tablet 1 mg PO BID 30 Days Qty: 60 0RF dextroamphetamine-amphetamine [Adderall XR] 30 mg capsule,extended release 24hr 30 mg PO DAILY Qty: 30 0RF dextroamphetamine-amphetamine [Adderall XR] 10 mg capsule,extended release 24hr 10 mg PO DAILY Qty: 28 0RF Rx Instructions: Take with Adderall XR 30 mg daily. tizanidine 4 mg capsule 4 mg PO TID PRN (Reason: muscle spasticity) Qty: 90 0RF Referrals Follow up/Referrals: Gilbert Chaparro DO [Primary Care Provider] - See instructions Activity Restrictions/Add. Instructions Additional Instructions/Restrictions: You were evaluated in the emergency department today. Please continue taking the antibiotic that was prescribed to you by your primary care provider. Take Tylenol and ibuprofen every 4-6 hours as needed for pain. Follow-up closely with your primary care provider for reassessment of your potassium level. Return to the emergency department for new or worsening symptoms. Clinical Impressions Clinical Impression: Hypokalemia, Bronchitis Stand Alone Forms Stand Alone Forms: Work/School Release Instructions Patient Instructions: DI for Acute Bronchitis, DI for Hemoptysis Print Language Print Language: Yi Discharge ED Provider: Emelyn Crockett General Adult HPI General Chief complaint: Recheck/Abnormal Lab/Rx Stated complaint: tested pos flu 2/ coughing up blood, arm pain Time Seen by Provider: 06/14/24 11:08 Mode of Arrival: Ambulatory Source of Information: Patient Limitations: No Limitations Description of Symptoms (Recalled from ER Triage Doc. by RN): Patient flu positive and with pneumonia. States she went to her pcp office because she began to spit up blood in her sputum. States that it comes in clots wrapped around her sputum. History of Present Illness HPI narrative: This patient is a 29-year-old female with history of hypertension, hypothyroidism, obesity status post gastric surgery presenting to the emergency department for evaluation with concern for hemoptysis. Patient went to her PCP because she was coughing up blood. She was diagnosed with pneumonia yesterday after a couple of weeks of URI symptoms. She was prescribed doxycycline and started that yesterday. The blood-tinged sputum to started today. She shows me pictures, and it is very minor. Its mostly yellow sputum with the faintest blood-tinged. No gross or cici hemoptysis. She also notes some pain in the front of her chest radiating into her back, especially with coughing. No history of blood clots, clotting disorders, no other concerns noted at this time. Related Data Home Medications ?Medication ?Instructions ?Recorded ?Confirmed levothyroxine 125 mcg tablet 137 mcg PO DAILY 02/03/24 06/14/24 cetirizine 10 mg capsule (All Day 10 mg PO DAILY PRN ALLERGIES 05/11/24 06/14/24 Allergy (cetirizine)) docosahexaenoic acid 200 mg 200 mg PO DAILY SUPPLIMENT 05/11/24 06/14/24 capsule ( DHA) magnesium chloride 71.5 mg 71.5 mg PO DAILY 05/11/24 06/14/24 (magnesium chloride) tablet,delayed release (Slow-Mag) doxycycline hyclate 100 mg capsule 100 mg PO BID 06/14/24 06/14/24 Previous Rx's ?Medication ?Instructions ?Recorded levomefolate calcium 15 mg tablet 15 mg PO DAILY #30 tabs 09/30/23 (L-Methylfolate) sertraline 100 mg tablet 150 mg (1.5 x 100 mg) PO DAILY #45 04/11/24 tabs labetalol 100 mg tablet 300 mg (3 x 100 mg) PO DAILY 04/12/24 migraine prevention #90 tabs atogepant 60 mg tablet (Qulipta) 60 mg PO DAILY #30 tabs 05/05/24 chlorthalidone 25 mg tablet 25 mg PO DAILY #30 tabs 05/11/24 lorazepam 1 mg tablet 1 mg PO BID 30 days #60 tabs 05/16/24 temazepam 7.5 mg capsule 7.5 mg PO HS 30 days #30 caps 05/16/24 dextroamphetamine-amphetamine ER 30 mg PO DAILY #30 caps 06/04/24 30 mg 24hr capsule,extend release (Adderall XR) dextroamphetamine-amphetamine ER 10 mg PO DAILY #28 caps 06/06/24 10 mg 24hr capsule,extend release (Adderall XR) tizanidine 4 mg capsule 4 mg PO TID PRN muscle spasticity 06/09/24 #90 caps ketorolac 10 mg tablet 10 mg PO Q8H PRN pain 3 days #12 06/14/24 tabs Allergies Allergy/AdvReac Type Severity Reaction Status Date / Time morphine (MORPHINE) Allergy Unknown Verified 06/14/24 10:01 [facility] Disclaimer: The information contained in this section may have been updated after the patient was seen, as this information can be updated by other users. Medical History History of pre-eclampsia Acute cough URI (upper respiratory infection) Palpitations Abdominal pain Dizziness Dyspnea Dizziness Dyspnea Migraine Hyperlipidemia Acne Anxiety and depression Obesity Insomnia DUB (dysfunctional uterine bleeding) Vitamin D deficiency (~11/22/17) Hypothyroidism Cryptosporidial gastroenteritis Surgical History Hx of section Bariatric surgery status Family History Other No significant family history Social History Smoking Status: Current every day smoker tobacco type: e-cigarettes smoking status start date: Stating smoking cigarettes around age 18, now vapes daily. second hand exposure: No alcohol intake: current alcohol intake frequency: holidays/special occasions only substance use type: denies use current occupational status: employed Travel in the last 8 weeks: None household members: family housing: house lives independently: Yes marital status: life partner number of children: 1 education level: college service: No current occupation: [employer] current occupational exposures/hazards: No caffeine: Yes major/synagogue: Roman [employer] special major needs: No Have you lived/traveled outside [place] in past 30 days?: No Contact w/someone who lives/traveled outside [place] past 30 days?: No Exposure to someone with infectious disease in past 14 days?: Yes Do you have a fever (greater than 100.4 F or 38 C)?: No Have you tested positive for COVID-19: No Exposed to someone with COVID-19 in past 14 days?: No Do you have a sore throat?: No Do you have a cough?: Yes Do you have any weakness?: No Do you have any diarrhea?: No Are you experiencing any unusual bleeding?: Yes Do you have any muscle aches/pain?: No Do you have any abdominal pain?: No Are you experiencing loss of taste or smell?: No Other Medical History Have you received the Flu Vaccine for this season: Yes Have you received the Pneumonia Vaccine: No ROS Obtained: Yes All systems reviewed & no additional complaints except as documented Physical Exam General General appearance: alert and in no apparent distress Head Head exam: atraumatic and normocephalic Eye Eye exam: Present normal appearance, PERRL and EOMI ENT ENT exam: Present normal exam, normal oropharynx, mucous membranes moist and normal external ear exam Neck Neck exam: Present normal inspection, full ROM and trachea midline; Absent tenderness Chest Chest inspection: Present normal inspection and symmetric chest wall rise; Absent tenderness Respiratory Respiratory exam: Present normal lung sounds bilaterally; Absent respiratory distress, wheezes, stridor or accessory muscle use Cardiovascular Cardiovascular exam: Present regular rate and normal rhythm Abdominal Exam Abdominal exam: Present soft; Absent distention, tenderness or guarding Extremities Exam Extremities exam: Present normal inspection, full ROM and normal capillary refill; Absent tenderness or edema Back Exam Back exam: Present normal inspection and full ROM; Absent tenderness Neurological Exam Neurological exam: Present alert, oriented X3, CN II-XII intact and normal gait; Absent motor sensory deficit Psychiatric Psychiatric exam: Present normal affect and normal mood Skin Skin exam: Present warm and dry Medical Decision Making Medical Records Medical records reviewed: Yes I reviewed the patient's medical records. Screening: Per USPSTF and CDC recommendations, given the prevalence of disease in our region, it is our hospital?s policy to screen for HIV and viral Hepatitis for all patients aged 18 and over and those with ongoing risk factors. [place] Inquiry Pt receiving controlled substance: No Vital Signs: 06/14/24 10:35 06/14/24 13:31 Temperature 97.9 F 98.0 F Temperature Source Oral Pulse Rate 84 Pulse Rate [Radial] 100 H Respiratory Rate 16 16 Blood Pressure 123/87 Blood Pressure [Right Arm] 141/88 H Blood Pressure Mean [Right Arm] 105 Blood Pressure Source [Right Arm] Automatic Cuff Blood Pressure Position Sitting Blood Pressure Position [Right Arm] Sitting 02 Sat by Pulse Oximetry 99 Oxygen Delivery Method Room Air Room Air Lab Data Lab results reviewed: Yes I reviewed the patient's lab results. Lab Results 06/14/24 11:30: WBC 6.0, RBC 5.00, Hgb 14.5, Hct 42.3, MCV 84.6, MCH 29.0, MCHC 34.3, RDW 13.2, Plt Count 382, MPV 10.0, Neut % (Auto) 62.5, Lymph % (Auto) 28.4, [place] % (Auto) 7.0, Eos % (Auto) 1.3, Baso % (Auto) 0.5, Neut # (Auto) 3.7, Lymph # (Auto) 1.7, [place] # (Auto) 0.4, Eos # (Auto) 0.1, Baso # (Auto) 0.0, Sodium 137, Potassium 2.8 L*, Chloride 97 L, Carbon Dioxide 30, Anion Gap 12.8, BUN 11, Creatinine 0.80, Estimated Creat Clear 126, Estimated GFR 86, Est GFR ( Amer) 104, Glucose 98, Calcium 9.6, Total Bilirubin 0.7, AST 31, ALT 28, Alkaline Phosphatase 59, Troponin I < 0.01, Total Protein 7.8, Albumin 5.0, Globulin 2.8, Albumin/Globulin Ratio 1.8, HCV Ab HANG w/Rflx PCR Qn Negative, HIV Ag/Ab Combo Qual Negative 06/14/24 11:30 06/14/24 11:30 Orders (Tests/Meds): ED MEDICATIONS Discontinued Medications Generic Name Dose Route Start Last Admin Trade Name Freq PRN Reason Stop Dose Admin Iopamidol 80 ml 06/14/24 12:36 06/14/24 12:42 Iopamidol-370 (76%);100ml Bottle IV 06/14/24 12:37 80 ml ONCE ONE Administration Ketorolac Tromethamine 30 mg 06/14/24 13:22 06/14/24 13:27 Ketorolac 30mg/Ml Vial IV 06/14/24 13:23 30 mg ONCE ONE Administration Potassium Chloride 60 meq 06/14/24 12:14 06/14/24 12:23 Potassium Chloride 20meq Tab PO 06/14/24 12:15 60 meq ONCE ONE Administration Sodium Chloride 50 ml 06/14/24 12:36 06/14/24 12:42 0.9 % Sodium Chloride 50 Ml Vial IV 06/14/24 12:37 50 ml ONCE ONE Administration Sodium Chloride 10 ml 06/14/24 12:36 06/14/24 12:42 Sodium Chloride 0.9% 10ml Syr (Rad Only) IV 06/14/24 12:37 10 ml ONCE ONE Administration ORDERS Category Date Time Status CT angio chest PE protocol Stat Cat Scan 06/14/24 11:13 Completed Complete Blood Count Auto Diff Stat Lab 06/14/24 11:30 Completed Comprehensive Metabolic Panel Stat Lab 06/14/24 11:30 Completed HIV Combo Stat Lab 06/14/24 11:30 Completed Hepatitis C Ab Qual. W/ RFX Stat Lab 06/14/24 11:30 Completed Trop I [Troponin I] Stat Lab 06/14/24 11:30 Completed Troponin I Q3H Lab 06/14/24 14:15 Ordered Troponin I Q3H Lab 06/14/24 17:15 Ordered ECG Data Tracing #1: I reviewed this ECG and interpreted as documented below: Normal sinus rhythm with a ventricular of 98 bpm. S1Q3T3 pattern. No acute STEMI. ECG initial impression date: 06/14/24 ECG initial impression time: 11:25 Medical Decision Narrative: In summary, this patient is a 29-year-old female presenting to the Emergency Department for evaluation of possible hemoptysis in the setting of pneumonia/URI. Differential diagnoses considered include but are not limited to pneumonia, bronchitis, bronchiectasis, PE. Ruling out the most morbid conditions drove assessment. It should be noted patient's history includes hypertension, anxiety which may or may not be at goal therapy. This complicates all aspects of care by increasing patient's risk for morbidity. I reviewed patient's past medical records and noted PCP evaluation today for similar issues. On exam, the patient is very well-appearing with normal vital signs and cardiac telemetry. Cardiopulmonary exam is reassuring. She is having very very mild blood-tinged sputum on pictures of sputum that she showed me. She has no increased work of breathing. Workup included CBC, CMP, CT PE, EKG. EKG OBTAINED IS REASSURING. I independently interpreted CT scan prior to the radiologist read and noted no large focal consolidation, no PE. Please see their read for final interpretation. Labs were obtained that demonstrated reassuring CBC with no significant leukocytosis or anemia, reassuring chemistry with the exception of hypokalemia with a potassium of 2.8. Replacement ordered orally. On reassessment, patient is resting calmly with normal vitals on cardiac telemetry. He continues to complain of some left-sided rib pain as well as upper back pain. Given this, I gave her IV Toradol. She does not have pneumothorax, PE, or other acute concern noted on CT scan, so I feel that she is ultimately appropriate for discharge home to continue taking doxycycline. Her pain is likely musculoskeletal with her cough. She was given prescription of Toradol to have as needed for the pain. She was given instructions for close follow-up with primary care and strict return precautions. Critical Care Critical Care Time Critical Care Time: No
--- NOTE | 2024-06-14 11:13 | CT_ITS ---
FINAL REPORT TECHNIQUE: Axial imaging of the chest is obtained after the administration of contrast. 3-D MIP reformatted images were also obtained and reviewed per PE protocol. CLINICAL HISTORY: hemoptysis COMPARISON: none FINDINGS: The pulmonary arteries are well filled. There is no evidence of pulmonary embolus. There is no aortic dissection. Heart size is normal. There is no mediastinal, hilar, or axillary lymphadenopathy. The lungs are clear. There is no pleural or pericardial effusion. Limited evaluation of the upper abdomen is without acute abnormality. No acute osseous abnormality. IMPRESSION: No evidence of pulmonary embolism or aortic dissection. No acute intrathoracic abnormality. Reviewed, Interpreted and Dictated by Lou Fernandes MD Transcribed by Paola Mclean Authenticated and [facility]
--- NOTE | 2024-06-14 11:23 | ECG_ITS ---
APPROVED REPORT Exam: Resting ECG HR:98 bpm ECG Measurements Heart Rate 98 AXES TN 162 P 57 QRSd 78 QRS 74 QT 346 T 4 QTc 402 Conclusion SINUS RHYTHM No STEMI Normal intervals Electronically signed by : JANNA MONTANO, 06/15/2024 10:13:07
--- NOTE | 2024-06-14 11:40 | PC.NURSE ---
ROUNDED ON THE PT. THE PT VOICES THAT SHE DOES NOT NEED ANYTHING AT THIS TIME. CALL LIGHT IS WITHIN REACH OF THE PT.
[2024-06-14 11:45] LABS: Eosinophils # 0.1 K/mm3 (0.0-0.4); Lymphocytes # 1.7 K/mm3 (0.7-4.5); Monocytes # 0.4 K/mm3 (0.1-1.0); Neutrophils # 3.7 K/mm3 (1.8-7.8)
[2024-06-14 11:51] LABS: Chloride 97 mmol/L (98-107)
[2024-06-14 11:52] LABS: Sodium 137 mmol/L (136-145)
[2024-06-14 11:55] LABS: Alanine Aminotransferase 28 U/L (12-78); Albumin/Globulin Ratio 1.8 (1.1-1.8); Alkaline Phosphatase 59 U/L (38-126); Anion Gap 12.8 mEq/L (5-15); Aspartate Amino Transferase 31 U/L (14-36); Bilirubin,Total 0.7 mg/dl (0.2-1.3); Blood Urea Nitrogen 11 mg/dl (7-17); Calcium 9.6 mg/dl (8.4-10.2); Carbon Dioxide 30 mmol/L (22.0-30.0); Creatinine Clearance Estimated 126 mL/min (50-200); Estimated Glomerular Filt Rate 86 ml/min (>60); GFR (African American) 104 ML/MIN (>60); Globulin 2.8 g/dL (1.3-3.2); Glucose 98 mg/dl (74-100); Total Protein,Serum 7.8 g/dl (6.3-8.2)
[2024-06-14 12:07] LABS: Potassium 2.8 mmoL/L (3.5-5.1)
[2024-06-14 12:09] LABS: Troponin I < 0.01 ng/ml (0.00-0.034)
--- NOTE | 2024-06-14 12:09 | PC.NURSE ---
made aware of K+2.8.
[2024-06-14 12:19] LABS: Basophils % 0.5 % (0.1-2.0); Eosinophils % 1.3 % (0.1-12.0); Hematocrit 42.3 % (37.0-47.0); Hemoglobin 14.5 g/dL (12.2-16.2); Lymphocytes % 28.4 % (10-50); Mean Corpuscular HGB Conc 34.3 g/dL (31.8-35.4); Mean Corpuscular Volume 84.6 fl (81-99); Neutrophils % 62.5 % (37.0-80.0); Platelet Count 382 K/mm3 (142-424); Red Cell Distribution Width 13.2 % (11.5-17.5)
[2024-06-14] MEDS: POTASSIUM CHLORIDE 20MEQ TAB 60 MEQ PO (12:23)
--- NOTE | 2024-06-14 12:40 | PC.NURSE ---
Back from CT
[2024-06-14] MEDS: 0.9 % SODIUM CHLORIDE 50 ML VIAL IV (12:42)
[2024-06-14] MEDS: IOPAMIDOL-370 (76%);100ML BOTTLE 80 ML IV (12:42)
[2024-06-14] MEDS: SODIUM CHLORIDE 0.9% 10ML SYR (RAD ONLY) 10 ML IV (12:42)
[2024-06-14 12:46] LABS: Hepatitis C Ab Qual. W/ RFX NEGATIVE (Negative)
--- NOTE | 2024-06-14 12:47 | PC.NURSE ---
ROUNDED ON THE PT. THE PT VOICES THAT SHE DOES NOT NEED ANYTHING AT THIS TIME. CALL LIGHT IS WITHIN REACH OF THE PT. FAMILY MEMBER IS PRESENT AT THE BEDSIDE.
[2024-06-14 13:20] LABS: HIV Combo NEGATIVE (Negative)
[2024-06-14] MEDS: KETOROLAC 30MG/ML VIAL 30 MG IV (13:27)
[2024-06-14 13:31] VITALS: BP 123/87; PULSE 84; RESP 16; TEMP 36.7; O2SAT 97
== END 2024-06-14 13:33 | disposition home or self-care (01) ==
PROVIDERS: Emergency Provider Emergency Medicine; PCP Internal Medicine
DX: E87.6 Hypokalemia (principal); J40 Bronchitis, not specified as acute or chronic; R04.2 Hemoptysis; R07.9 Chest pain, unspecified; R05.9 Cough, unspecified; F17.210 Nicotine dependence, cigarettes, uncomplicated
CPT/HCPCS: 71275; 80053; 84484; 85025; 86803; 87389; 93005; 96374; 99285; J1885; Q9967

== ENCOUNTER 2024-06-16 10:25 | Outpatient (CLI) | payer BC, OTHER, SELFPAY ==
[2024-06-16 20:00] LABS: Potassium 3.7 mmoL/L (3.5-5.1)
== END 2024-06-16 23:59 | disposition home or self-care (01) ==
LOC: LAB.DROPOF 06-17 09:55
PROVIDERS: PCP Internal Medicine; Visit Provider Internal Medicine
DX: E87.6 Hypokalemia (principal)
CPT/HCPCS: 84132

== ENCOUNTER 2024-06-21 13:44 | Day surgery (SDC) | payer BC, OTHER, SELFPAY ==
[2024-06-21 13:57] VITALS: BP 112/77; PULSE 85; RESP 16; TEMP 36.8; O2SAT 99; BMI 29.4
[2024-06-21] MEDS: IOPAMIDOL-200 (41%);10ML VIAL 10 ML IV (14:03)
[2024-06-21 14:09] VITALS: BP 112/58; PULSE 76; RESP 18; O2SAT 97
[2024-06-21] MEDS: methylPREDNISolone ACETATE 80MG/ML VIAL 80 MG (14:09)
[2024-06-21 14:10] VITALS: BP 112/58; PULSE 75; RESP 18; O2SAT 98
[2024-06-21 14:19] VITALS: BP 120/74; PULSE 80; RESP 16; TEMP 36.8; O2SAT 99
--- NOTE | 2024-06-21 14:20 | P.PCN_ITS ---
Procedure Date: 06/21/24 Time: 14:00 Anesthesiologist:: Adriel Black CRNA Complications:: None Pre-procedure Diagnosis:: Degenerative disc cervical spine. Cervical radiculopathy. Post-procedure Diagnosis:: Same Indications for Procedure:: Patient is a pleasant 29-year-old female who comes our clinic today for a cervical epidural steroid injection. Patient describes posterior cervical neck pain as well as bilateral arm radicular symptoms as constant, dull, aching. She rates her pain 7/10 Procedure Details:: Procedure:Cervical epidural steroid injection Informed consent was obtained and the risks and benefits of the procedure were explained to the patient. The patient was taken to the procedure room and noninvasive monitors placed, including noninvasive blood pressure cuff and pulse oximeter. The neck was prepped using Chloraprep as a cleansing solution. The C6- C7 interspace was viewed using fluroscopy. The skin and subcutaneous tissues were anesthetized using lidocaine 1.5% and a 25-gauge needle. After this an 18- gauge Touhy epidural needle was placed into the C6-C7 interspace under fluroscopy guidance and advanced using loss of resistance to air until the epidural space was encountered. After confirmation of needle placement in the epidural space using contrast dye, a solution containing normal saline, 2 mL and Depo-Medrol 80 mg was incrementally injected into the cervical epidural space.~ The patient tolerated the procedure well with no complications. The patient was observed in the Pain Clinic and then discharged home neurologically intact. Plan and Disposition:: Patient was discharged without incident.
== END 2024-06-21 14:19 | disposition home or self-care (01) ==
PROVIDERS: PCP Internal Medicine; Visit Provider Nurse Anesthetist, Certified Registered
DX: M50.30 Other cervical disc degeneration, unspecified cervical region (principal); M54.12 Radiculopathy, cervical region
CPT/HCPCS: 62321; J1010; Q9966

== ENCOUNTER 2024-06-22 10:07 | Outpatient (CLI) | payer BC, OTHER, SELFPAY ==
[2024-06-22 10:45] LABS: Basophils % 0.3 % (0.1-2.0); Eosinophils # 0.1 K/mm3 (0.0-0.4); Eosinophils % 0.7 % (0.1-12.0); Hematocrit 42.1 % (37.0-47.0); Hemoglobin 14.2 g/dL (12.2-16.2); Lymphocytes # 2.6 K/mm3 (0.7-4.5); Lymphocytes % 25.4 % (10-50); Mean Corpuscular HGB Conc 33.7 g/dL (31.8-35.4); Mean Corpuscular Hemoglobin 29.1 pg (27.0-31.2); Mean Corpuscular Volume 86.3 fl (81-99); Mean Platelet Volume 9.8 fl (7.4-10.4); Monocytes # 0.9 K/mm3 (0.1-1.0); Monocytes % 8.9 % (1.7-9.3); Neutrophils # 6.5 K/mm3 (1.8-7.8); Neutrophils % 64.3 % (37.0-80.0); Platelet Count 512 K/mm3 (142-424); Red Blood Count 4.88 M/mm3 (4.20-5.40); Red Cell Distribution Width 13.2 % (11.5-17.5); White Blood Count 10.1 K/mm3 (4.8-10.8)
[2024-06-22 10:55] LABS: D-Dimer 0.32 ug/mL (0.0-0.5)
[2024-06-22 11:10] LABS: Albumin Level 5.2 g/dl (3.5-5.0); Chloride 96 mmol/L (98-107); Potassium 3.1 mmoL/L (3.5-5.1); Sodium 138 mmol/L (136-145)
[2024-06-22 11:13] LABS: Alanine Aminotransferase 27 U/L (12-78); Alkaline Phosphatase 66 U/L (38-126); Anion Gap 15.1 mEq/L (5-15); Aspartate Amino Transferase 27 U/L (14-36); Bilirubin,Direct 0.1 mg/dl (0.0-0.4); Bilirubin,Indirect 0.2 mg/dL (0.0-0.9); Bilirubin,Total 0.3 mg/dl (0.2-1.3); Bilirubin,Unconjugated 0.2 mg/dL (0.0-1.1); Blood Urea Nitrogen 12 mg/dl (7-17); Carbon Dioxide 30 mmol/L (22.0-30.0); Chol/HDL Ratio 3.2 (1-3.5); Cholesterol 300 mg/dl (140-200); Estimated Glomerular Filt Rate 100 ml/min (>60); GFR (African American) 121 ML/MIN (>60); Glucose 93 mg/dl (74-100); HDL Cholesterol 95 mg/dl (40-60); Total Protein,Serum 7.4 g/dl (6.3-8.2); Triglycerides 85 mg/dl (30-150); VLDL Cholesterol 17 mg/dL (0-40)
[2024-06-22 11:25] LABS: Direct LDL Cholesterol 149.58 mg/dL (100-129)
[2024-06-22 11:31] LABS: Free T4 (Free Thyroxine) 1.36 ng/dl (0.78-2.19)
[2024-06-22 11:44] LABS: Thyroid Stimulating Hormone 1.05 uIU/mL (0.465-4.68)
== END 2024-06-22 23:59 | disposition home or self-care (01) ==
PROVIDERS: PCP Internal Medicine; Visit Provider Nurse Practitioner
DX: R00.2 Palpitations (principal); I15.8 Other secondary hypertension; E78.5 Hyperlipidemia, unspecified; E03.9 Hypothyroidism, unspecified; F17.200 Nicotine dependence, unspecified, uncomplicated
CPT/HCPCS: 36415; 80048; 80061; 80076; 84439; 84443; 85025; 85378

== ENCOUNTER 2024-06-27 08:44 | Outpatient (CLI) | payer BC, OTHER, SELFPAY ==
--- NOTE | 2024-06-27 08:48 | CA_ITS ---
APPROVED REPORT EXAM: Comprehensive 2D, Doppler, and color-flow Echocardiogram Chain Maker Loom Control: Stacia Lovell RVT Ht: 5 ft 3 in Wt: 166lbs BSA: 1.79 BP: 139/94 mmHg Indications: ABN EKG,TACHYCARDIA,CP,HTN,PALPS,SOA,SMOKER 2D Dimensions IVSd 1.11 cm F: 0.6-1.0 LVEF (Visual) 59.90 % PWd 0.59 cm F: 0.6 - 1.0 LA Volume 29.60 mL LVDd 4.09 cm F: 3.9 - 5.3 LA Volume Index 16.54 mL/m2 (M/F) 16-34 LVDs 2.80 cm F: 2.2 - 3.5 M-Mode Dimensions RVDd 1.77 cm (0.9-2.6) LA Diam 3.10 cm (1.9-4.0) LVDd 3.83 cm (3.5-5.7) IVSd 0.46 cm (0.6-1.1) PWd 0.35 cm (0.6-1.1) EDV (Teich) 63.10 mL TAPSE 2.40 (<1.7) LV Diastology E Decel Time 150 (160-240 msec) E/A Ratio 1.1 Aortic Valve LARA Index 1.34 cm2/m2 AoV Peak Clement. 112.0 (50-130 cm/s) AO Peak GR. 5.00 mmHg AO Mean GR. 2.40 (<5 mmHg) AO VTI 20.9 (18-25 cm) LARA (VTI) 2.46 (2.5-4.5 cm2) Mitral Valve MV E Max Clement. 72.0 (40-130 cm/s) MV A Velocity 65.0 (40-130 cm/s) E/A Ratio 1.10 MV PHT 44.0 ms Pulmonary Valve PV Peak Velocity 76.0 (50-150 cm/s) Left Ventricle The left ventricle is normal size. The left ventricular systolic function is normal. The left ventricular ejection fraction is within the normal range. There is normal left ventricular wall thickness. There is normal LV segmental wall motion. The left ventricular diastolic function is normal. LVEF is 55%. Right Ventricle The right ventricle is normal size. The right ventricular systolic function is normal. Atria The left atrium size is normal. The right atrium size is normal. There is no Doppler evidence of interatrial shunt. Aortic Valve The aortic valve opens well. The aortic valve is trileaflet. There is no aortic valvular stenosis. No aortic regurgitation is present. Mitral Valve The mitral valve is normal in structure. No evidence of mitral valve stenosis. Trace mitral regurgitation. Tricuspid Valve Tricuspid valve is grossly normal in structure and function. Trace mitral regurgitation. There is insufficient TR jet to estimate RVSP. Pulmonic Valve The pulmonary valve is normal in structure. Trace pulmonic regurgitation. Great Vessels The aortic root is normal in size. IVC is normal in size and collapses >50% with inspiration. Pericardium There is no pericardial effusion. Other Information Study Quality: Adequate Conclusion Normal biventricular systolic function. No significant valvular stenosis or regurgitation. Electronically signed by : Marce Pineda MD 06/27/2024 11:01:27
[2024-06-27 12:49] LABS: Chloride 106 mmol/L (98-107)
[2024-06-27 12:50] LABS: Potassium 4.7 mmoL/L (3.5-5.1); Sodium 139 mmol/L (136-145)
[2024-06-27 12:53] LABS: Anion Gap 8.7 mEq/L (5-15); Blood Urea Nitrogen 9 mg/dl (7-17); Calcium 9.7 mg/dl (8.4-10.2); Carbon Dioxide 29 mmol/L (22.0-30.0); Estimated Glomerular Filt Rate 100 ml/min (>60); GFR (African American) 121 ML/MIN (>60); Glucose 88 mg/dl (74-100)
== END 2024-06-27 23:59 | disposition home or self-care (01) ==
PROVIDERS: Internal Medicine; PCP Internal Medicine; Visit Provider Nurse Practitioner
DX: I15.8 Other secondary hypertension (principal); R94.31 Abnormal electrocardiogram [ECG] [EKG]; R00.0 Tachycardia, unspecified; R00.2 Palpitations; E78.5 Hyperlipidemia, unspecified; E03.9 Hypothyroidism, unspecified; E87.6 Hypokalemia
CPT/HCPCS: 36415; 80048; 83735; 93306

== ENCOUNTER 2024-07-06 07:28 | Outpatient (CLI) | payer BC, OTHER, SELFPAY ==
--- NOTE | 2024-07-06 07:31 | CT_ITS ---
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 A noncontrast coronary calcium scan was performed. A CT attenuation threshold of 130 Hounsfield units (HU) was used for the detection of calcium in contiguous voxels of 1 sq mm in area to be counted as individual lesions. Bolus tracking in the ascending aorta with a threshold of 180 HU was performed. Immediately afterwards, ECG synchronized cardiac CT was then performed from the cardiac base to apex using retrospective gating with ECG tube current modulation. A total of 85 mL of Isovue 370 mg/mL contrast medium was administered at 5 mL/sec followed by a saline flush using a biphasic injection protocol. A tube voltage of 120 KVp was used. The patient received the following medications prior to the cardiac CT. 125 mg of oral metoprolol 15 mg of oral ivabradine The average heart rate at the time of acquisition was 63 bpm and regular. Image Reconstruction Transaxial images were reconstructed at 0.67 mm slide thickness. Data was reviewed interactively on an advanced workstation capable of 2 and 3-dimensional displays in all conventional reconstruction formats, including multiplanar reformations, maximum intensity projections, curved multiplanar reformations, and volume rendered reconstructions. When applicable, selected routine images describing the relevant coronary anatomy and pathology were saved and sent to PACS. Complications None Technical Quality Overall image quality was good. Coronary artery opacification was adequate. Total DLP (Dose-Length Product) is 1583.7 mGy-cm. The reported value represents the total of one or more individual components during the CT acquisition of this date and at this time, and as such, the same value may appear in more than one CT report depending on the interpreting/reporting physicians. COMPARISON None FINDINGS CT Coronary Calcium Scoring LMA (Left Main Artery) = 0 LAD (Left Anterior Descending) = 0 LCX (Left Coronary Circumflex) = 0 RCA (Right Coronary Artery) = 0 Total Calcium Score = 0 using the AJ-130 method. The interpretation of the calcium heart score is based on the following continuum*: 0 = no calcified plaque detected (risk of coronary artery disease is very low ??? less than 5%) 1-10 = calcium detected in extremely minimal levels (risk of coronary diseases is still low ??? less than 10%) 11-100 = mild levels of plaque detected with certainty (mild or minimal narrowing of heart arteries is likely) 101-400 = definite,at least moderate levels of plaque detected (relatively high risk of a heart attack within 3-5 years) >401-999 = extensive levels of plaque detected (high risk of heart attack, high levels of vascular disease are present, high likelihood of at least one significant coronary narrowing) *The calcium heart score quantifies the burden of coronary calcification/plaque in the coronary arteries. The calcium heart score is not able to evaluate the presence or burden of non-calcified (i.e. soft) plaque. There is no identifiable calcification in the aortic valve, mitral annulus or mitral valve, pericardium, or myocardium. Coronary CT Angiography The coronary arterial system is right dominant. Quantitative Stenosis Grading: Left Main (LM): The left main originates normally from the left sinus of Valsalva. The LM bifurcates into the left anterior descending artery and left circumflex artery. The LM is patent with no evidence of atherosclerosis. Left Anterior Descending (LAD) and Diagonal Branches: The LAD gives off 3 diagonal branch(es). The LAD and its branches are patent with no evidence of atherosclerosis. There is no evidence of LAD-myocardial bridge. Left Circumflex (LCX) and Obtuse Marginals (OM): The LCX gives off 1 Obtuse Marginal (OM) branch(es). The LCX and its branches are patent with no evidence of atherosclerosis. Right Coronary Artery (RCA): The RCA originates normally from the right sinus of Valsalva. The RCA gives off a posterior descending artery (PDA) and posterolateral (PL) branches. The RCA and its branches are patent with no evidence of atherosclerosis. Non-Coronary Cardiac Findings: Analysis of the left ventricular (LV) structure and function was performed after 3-D reconstruction of the LV from axial images, with user-corrected automatic contouring for assessment of LV volumes and user-defined reconstruction from oblique planes for measurement of 3-D cardiac structure and function. -The left ventricle systolic function is normal. -There is no left atrial appendage filling defect. Two right pulmonary veins and two left pulmonary veins drain normally into the left atrium. -No pericardial thickening or calcification. -Central and branch pulmonary arteries in the [id number] are unremarkable. -Thoracic aorta within the visualized thoracic aortic-branches in the [id number] is unremarkable. Extracardiac Structures No significant extra-cardiac findings. Note, however, that this study is focused on the cardiac findings. IMPRESSION -Absence of coronary calcification with an Agatston score = 0 using the AJ-130 method. -No evidence of significant flow-limiting atherosclerosis of the coronary arteries. -No evidence of coronary anomalies or myocardial bridges. -CAD-RADS 0. Management recommendations per ACC/AHA guidelines*, as clinically appropriate. *Recommendations: CAD RADS 0: Reassurance. Consider non-atherosclerotic causes of chest pain. CAD RADS 1: Consider non-atherosclerotic causes of chest pain. Consider preventive therapy and risk factor modification. CAD RADS 2: Consider non-atherosclerotic causes of chest pain. Consider preventive therapy and risk factor modification, particularly for patients with nonobstructive plaque in multiple segments. CAD RADS 3: Consider further functional testing. Consider symptom-guided anti-ischemic and preventive pharmacotherapy as well as risk factor modification per published guideline statements. CAD RADS 4A: Consider further functional testing or invasive coronary angiography with revascularization per published guideline statements. Consider symptom-guided anti-ischemic and preventive pharmacotherapy as well as risk factor modification per published guideline statements. CAD RADS 4B: Invasive coronary angiography recommended with revascularization per published guideline statements. Consider symptom-guided anti-ischemic and preventive pharmacotherapy as well as risk factor modification per published guideline statements. CAD RADS 5: Consider invasive angiography and/or viability assessment with revascularization per published guideline statements. Consider symptom-guided anti-ischemic and preventive pharmacotherapy as well as risk factor modification per published guideline statements. CRITICAL RESULT None COMMUNICATION Per this written report The coronary and cardiac findings of this CCTA were reviewed, reported, and signed by Neptali Pineda MD (Integrity Director) Conclusion Electronically signed by : Marce Pineda MD 07/11/2024 12:50:17
[2024-07-06 07:46] VITALS: BMI 29.4
[2024-07-06 07:47] VITALS: BP 122/82; PULSE 85; RESP 16; TEMP 36.1; O2SAT 100
[2024-07-06 07:50] VITALS: BP 122/82; PULSE 85; RESP 16; TEMP 36.1; O2SAT 100
[2024-07-06] MEDS: IVABRADINE HCL 7.5MG TABLET PO (07:55)
[2024-07-06] MEDS: METOPROLOL TARTRATE 50MG TABLET PO ×2 (07:56→08:55)
[2024-07-06 09:33] VITALS: BP 123/78; PULSE 65; RESP 16; O2SAT 100
[2024-07-06 09:38] VITALS: BP 108/73; PULSE 63; RESP 16; O2SAT 100
[2024-07-06 09:43] VITALS: BP 108/71; PULSE 61; RESP 16; O2SAT 100
[2024-07-06] MEDS: IOPAMIDOL-370 (76%);100ML BOTTLE 85 ML IV (09:47)
[2024-07-06] MEDS: 0.9 % SODIUM CHLORIDE 50 ML VIAL IV (09:47)
[2024-07-06] MEDS: SODIUM CHLORIDE 0.9% 10ML SYR (RAD ONLY) 10 ML IV (09:47)
== END 2024-07-06 23:59 | disposition home or self-care (01) ==
PROVIDERS: PCP Internal Medicine; Visit Provider Internal Medicine
DX: R07.2 Precordial pain (principal); R00.0 Tachycardia, unspecified; R00.2 Palpitations
CPT/HCPCS: 75574; 93270; Q9967

== ENCOUNTER 2024-07-20 14:34 | Outpatient (POV) | payer BC, OTHER, SELFPAY ==
[2024-07-20 14:51] VITALS: BP 117/72; PULSE 98; RESP 14; O2SAT 100; BMI 29.4
--- NOTE | 2024-07-20 15:01 | A.OFFVIS_ITS ---
[facility] Disclaimer: The information contained in this section may have been updated after the patient was seen, as this information can be updated by other users. Medical History History of pre-eclampsia Acute cough URI (upper respiratory infection) Palpitations Abdominal pain Dizziness Dyspnea Dizziness Dyspnea Migraine Hyperlipidemia Acne Anxiety and depression Obesity Insomnia DUB (dysfunctional uterine bleeding) Vitamin D deficiency (~11/22/17) Hypothyroidism Cryptosporidial gastroenteritis Surgical History History of bilateral tubal ligation Hx of section Bariatric surgery status Family History Other No significant family history Social History Smoking Status: Current every day smoker tobacco type: e-cigarettes smoking status start date: Stating smoking cigarettes around age 18, now vapes daily. 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 Today she rates her pain a 0 out of 10 however does state that she does still have all the light discomfort they are at her neck that does radiate into her left upper arm. Patient states that she really did not notice significant improvement or changes following this injection. She states that she actually had random tingling into her left leg that started about 3 AM the next day from the injection and lasted for about 2 days. She states that the pain did dissipate and is not sure what specifically that was in regards to. Patient is currently managed with tizanidine 4 mg 3 times a day from our office. She denies any side effects from this medication. Patient denies any heart or kidney issues. Her Floyd has been reviewed and is appropriate. Review of Systems: General: No recent weight changes, no fever, no sleep disturbances Respiratory: No cough, no shortness of air, no recurring pulmonary infections Cardiovascular/peripheral vascular: No chest pain, no palpitations, no edema, no shortness of breath Gastrointestinal: No new onset incontinence, normal bowel movements reported Genitourinary: No new onset incontinence Musculoskeletal: Neck pain, left arm pain Psychiatric: [Normal mood/affect] Neurological: [Denies weakness in extremities], [denies balance issues] Pain at rest (0-10 scale): 0 Objective Objective:: Physical Exam: General: Alert and oriented x3, no acute distress, pleasant and cooperative Lungs: Respirations even and unlabored, symmetrical chest expansion Eyes: PERRL Musculoskeletal: Flexion and extension of cervical spine within normal limits Neurological: Speech clear, no gross sensory deficit Has patient had previous pain injection?: Yes Percent improvement in pain since last injection: Minimal Conservative treatment options previously tried: Home exercise plan Length of treatment: Longer than 12 weeks Meds Home Medications and Allergies Home Medications ?Medication ?Instructions ?Recorded ?Confirmed ?Type levomefolate calcium 15 mg tablet 15 mg PO DAILY #30 tabs 09/30/23 07/20/24 Rx (L-Methylfolate) levothyroxine 125 mcg tablet 137 mcg PO DAILY 02/03/24 07/20/24 History sertraline 100 mg tablet 150 mg (1.5 x 100 mg) PO DAILY #45 04/11/24 07/20/24 Rx tabs atogepant 60 mg tablet (Qulipta) 60 mg PO DAILY #30 tabs 05/05/24 07/20/24 Rx cetirizine 10 mg capsule (All Day 10 mg PO DAILY PRN ALLERGIES 05/11/24 07/20/24 History Allergy (cetirizine)) docosahexaenoic acid 200 mg 200 mg PO DAILY SUPPLIMENT 05/11/24 07/20/24 History capsule ( DHA) magnesium chloride 71.5 mg 71.5 mg PO DAILY 05/11/24 07/20/24 History (magnesium chloride) tablet,delayed release (Slow-Mag) ketorolac 10 mg tablet 10 mg PO Q8H PRN pain 3 days #12 06/14/24 07/20/24 Rx tabs aspirin 81 mg tablet,delayed 81 mg PO DAILY 06/15/24 07/20/24 History release (Adult Aspirin Regimen) losartan 25 mg tablet 25 mg PO DAILY #90 tabs 06/22/24 07/20/24 Rx L.acid,brev,bulg,casei,parac,plan,saliv-B.anim 1 cap PO DAILY Gut health 06/27/24 07/20/24 History 20 billion cell capsule (Probiotic-10) metoprolol succinate 50 mg 50 mg PO DAILY #30 tabs 06/27/24 07/20/24 Rx tablet,extended release 24 hr (Toprol XL) dextroamphetamine-amphetamine ER 10 mg PO DAILY #28 caps 07/04/24 07/20/24 Rx 10 mg 24hr capsule,extend release (Adderall XR) dextroamphetamine-amphetamine ER 30 mg PO DAILY #30 caps 07/04/24 07/20/24 Rx 30 mg 24hr capsule,extend release (Adderall XR) lorazepam 1 mg tablet 1 mg PO BID 30 days #60 tabs 07/13/24 07/20/24 Rx temazepam 7.5 mg capsule 7.5 mg PO HS 30 days #30 caps 07/13/24 07/20/24 Rx tizanidine 4 mg capsule 4 mg PO TID PRN muscle spasticity 07/15/24 07/20/24 Rx #21 caps New Prescriptions to Start Prescriptions: Allergies Allergy/AdvReac Type Severity Reaction Status Date / Time morphine (MORPHINE) Allergy Unknown Hallucinati Verified 07/06/24 07:53 ng Assessment and Plan *Assessment and plan (1) Degenerative disc disease, cervical: Status: Acute Category: Medical Code(s): M50.30 - Other cervical disc degeneration, unspecified cervical region Plan I did discuss with the patient since she does have no heart or kidney issues that it may be beneficial for us to try a daily anti-inflammatory to help with the pain. Patient denies having tried Celebrex or diclofenac. I will send in a 2-week prescription of diclofenac 75 mg twice daily. Patient will return to clinic in 2 weeks for reevaluation of symptoms. Patient has been tried on compounded cream in the past however only got minimal improvement. Patient has been instructed to contact the clinic with any concerns before the next appointment. Dr. Frye has reviewed this note and agrees with this plan of care. This note was dictated using voice recognition software and make contain errors or omissions. All injections are used with Lidocaine, Bupivacaine and Depo Medrol. Occasionally urine drug screen is needed to verify patient's compliance with our office pain contract. This is ordered based off specific treatments related to chronic pain with the potential to abuse certain medications.
== END 2024-07-20 23:59 | disposition home or self-care (01) ==
PROVIDERS: PCP Internal Medicine; Visit Provider Nurse Practitioner Family
DX: M50.30 Other cervical disc degeneration, unspecified cervical region (principal); F17.200 Nicotine dependence, unspecified, uncomplicated; Z79.899 Other long term (current) drug therapy
CPT/HCPCS: 99212; G0463

== ENCOUNTER 2024-09-14 14:12 | Outpatient (CLI) | payer BC, OTHER, SELFPAY ==
[2024-09-14 14:57] LABS: Basophils % 0.6 % (0.1-2.0); Eosinophils # 0.1 Kmm3 (0.0-0.4); Hematocrit 41.6 % (37.0-47.0); Hemoglobin 13.8 g/dL (12.2-16.2); Immature Granulocytes # 0.01 10^3uL; Immature Granulocytes % 0.2 %; Lymphocytes # 1.8 K/mm3 (0.7-4.5); Lymphocytes % 26.6 % (10-50); Mean Corpuscular HGB Conc 33.2 g/dL (31.8-35.4); Mean Corpuscular Hemoglobin 30.8 pg (27.0-31.2); Mean Corpuscular Volume 92.9 fl (81-99); Mean Platelet Volume 10.1 fl (7.4-10.4); Monocytes # 0.5 K/mm3 (0.1-1.0); Monocytes % 7.8 % (1.7-9.3); Neutrophils # 4.1 K/mm3 (1.8-7.8); Neutrophils % 62.8 % (37.0-80.0); Nucleated Red Blood Cells # 0 10^3/uL; Nucleated Red Blood Cells % 0 %; Platelet Count 406 K/mm3 (142-424); Red Blood Count 4.48 M/mm3 (4.20-5.40); Red Cell Distribution Width 12.2 % (11.5-17.5); Red Cell Distribution Width-SD 42.2 fL; White Blood Count 6.6 K/mm3 (4.8-10.8)
[2024-09-14 15:29] LABS: Albumin Level 4.8 g/dl (3.5-5.0); Chloride 106 mmol/L (98-107); Potassium 4.6 mmoL/L (3.5-5.1); Sodium 138 mmol/L (136-145)
[2024-09-14 15:32] LABS: Alanine Aminotransferase 27 U/L (12-78); Alkaline Phosphatase 58 U/L (38-126); Anion Gap 9.6 mEq/L (5-15); Aspartate Amino Transferase 23 U/L (14-36); Bilirubin,Direct 0.1 mg/dl (0.0-0.4); Bilirubin,Indirect 0.4 mg/dL (0.0-0.9); Bilirubin,Total 0.5 mg/dl (0.2-1.3); Bilirubin,Unconjugated 0.4 mg/dL (0.0-1.1); Blood Urea Nitrogen 11 mg/dl (7-17); Calcium 9.6 mg/dl (8.4-10.2); Carbon Dioxide 27 mmol/L (22.0-30.0); Cholesterol 146 mg/dl (140-200); Estimated Glomerular Filt Rate 86 ml/min (>60); GFR (African American) 104 ML/MIN (>60); Glucose 88 mg/dl (74-100); Total Protein,Serum 6.7 g/dl (6.3-8.2); Triglycerides 80 mg/dl (30-150); VLDL Cholesterol 16 mg/dL (0-40)
[2024-09-14 15:33] LABS: HDL Cholesterol 72 mg/dl (40-60); Magnesium 1.9 mg/dl (1.6-2.3)
[2024-09-14 15:44] LABS: Direct LDL Cholesterol 49.09 mg/dL (100-129)
[2024-09-14 15:56] LABS: Free T4 (Free Thyroxine) 1.66 ng/dl (0.78-2.19)
[2024-09-14 16:05] LABS: Thyroid Stimulating Hormone 0.78 uIU/mL (0.465-4.68)
== END 2024-09-14 23:59 | disposition home or self-care (01) ==
LOC: LAB 14:13
PROVIDERS: Visit Provider Nurse Practitioner
DX: E87.6 Hypokalemia (principal); I10 Essential (primary) hypertension; E55.9 Vitamin D deficiency, unspecified; R00.2 Palpitations
CPT/HCPCS: 36415; 80048; 80061; 80076; 83735; 84439; 84443; 85025

== ENCOUNTER 2025-03-06 13:57 | Outpatient (CLI) | payer BC, OTHER, SELFPAY ==
--- OUTSIDE RECORDS SUMMARY | 2025-03-06 14:04 | XMS_ITS | Clinical Summary ---
Author Organization [facility] Address [address] [place] [address] Care Team Providers Care Clip And Hanger Attacher Name Role Phone Shaina Diaz Primary Care Provider [phone] Allergies Active Allergy Reactions Criticality Noted Date Comments Morphine Hallucinations Medium 07/21/2014 Medications amphetamine-dex troamphetamine XR (Adderall XR) 30 MG 24 hr capsule Take 1 capsule (30 mg) by mouth 1 (one) time each day in the morning. Do not crush or chew. Active -FeFum- FA-DHA w/o A ( + DHA PO) 05/17/19 24 Active temazepam (Restoril) 7.5 MG capsule 1 capsule (7.5 mg). 09/26/19 22 Active sertraline (Zoloft) 100 MG tablet Take 1 tablet (100 mg) by mouth 1 (one) time each day. Active LEVOMEFOLATE GLUCOSAMINE PO Take 15 mg by mouth. 09/30/19 24 Active labetalol (Normodyne) 300 MG tablet Take 2 tablets (600 mg) by mouth every 8 (eight) hours. 180 tablet 2 01/16/20 24 Active Additional Information Patient taking differently: 100 mgOralDaily, Reported on 02/01/2024 cyclobenzaprine (Flexeril) 5 MG tablet Take 1 tablet (5 mg) by mouth 3 (three) times a day if needed for muscle spasms. 30 tablet 01/16/20 24 Active ibuprofen 600 MG tablet Take 1 tablet (600 mg) by mouth every 6 (six) hours. 30 tablet 2 01/16/20 24 Active NIFEdipine CC (Adalat CC) 30 MG 24 hr tablet Take 2 tablets (60 mg) by mouth every 12 (twelve) hours. Do not crush, chew, or split. 60 tablet 2 01/17/20 24 Active Qulipta 60 MG tablet 02/05/20 24 Active levothyroxine (Synthroid, Levoxyl) 137 MCG tablet TAKE 1 TABLET BY MOUTH EVERY MORNING 30 tablet 5 02/28/20 25 Active levothyroxine (Synthroid, Levoxyl) 137 MCG tablet Take 1 tablet (137 mcg) by mouth 1 (one) time each day in the morning. 90 tablet 3 03/03/20 24 025 Discontinued Active Problems Problem Noted Date Diagnosed Date Intractable migraine without status migrainosus 09/15/2023 Multinodular goiter 06/02/2022 10/15/2022 Excess skin of thigh 08/09/2020 Pannus, abdominal 05/16/2020 Screening for STDs (sexually transmitted disease s) 10/20/2019 Pap smear for cervical cancer screening 10/20/19 Encounter for IUD removal 10/20/2019 Genital ulcer, female 10/20/2019 Enlarged thyroid 03/10/2017 Hypertrophy of vulva 03/10/2017 Contraceptive surveillance 02/20/2016 Well adolescent visit 07/22/2014 Menstrual migraine 04/14/2013 Autoimmune thyroiditis 03/22/2013 Goiter 10/19/2012 Thyroiditis 04/08/2012 Resolved Problems Problem Noted Date Diagnosed Date Resolved Date Pre-eclampsia affecting , antepartum 01/06/20 24 03/03/2024 Encounters Date Type Department Care Team Description 02/28/2025 Community [facility] [address] [place] [address] Mireille Clark MD Migraine, unspecified (Primary Dx) 02/27/2025 Refill Obstetrics & Gynecology [address] [place] [address] Bipin Schuster MD from Last 3 Months Immunizations Immunization Administration Dates Next Due Influenza, injectable, quadrivalent, preservativ e free 02/07/2022 Influenza, seasonal, injectable, preservative fr ee 12/30/2023 Tdap 12/16/2023 Family History Medical History Relation Name Comments Breast cancer Maternal Grandfather Hypertension Maternal Grandfather Breast cancer Other Breast cancer Paternal Grandfather Hypertension Paternal Grandfather Relation Name Status Comments Maternal Grandfather Other Paternal Grandfather Social History Tobacco Use Types Packs/Day Years Used Date Smoking Tobacco: Former Cigarettes 0.3 10 0 12/2011 - 12/2021 Smokeless Tobacco: Never Tobacco Cessation:Counseling Given: Not Answered Alcohol Use Standard Drinks/Week Comments No 0 (1 standard drink = 0.6 oz pur e alcohol) PHQ-2 Answer Date Recorded Patient Health Questionnaire-2 Score 0 03/03/2024 [place] Depression Scale Answer Date Recorded [place] Depression Scale Total 0 03/03/2024 The thought of harming myself has occurred to me . Never 03/03/2024 Comments No Sex and Gender Information Value Date Recorded Sex Assigned at Female 08/16/2024 6:29 PM EDT Legal Sex Female 6:04 PM EDT Gender Identity Female 08/16/2024 6:29 PM EDT Sexual Orientation Straight 08/16/2024 6: 29 PM EDT Last Filed Vital Signs Vital Sign Reading Time Taken Comments Blood Pressure 124/84 03/03/2024 11:36 AM EST Pulse 81 03/03/2024 11:36 AM EST Temperature 36.6 C (97.8 F) 03/03/2024 11:36 AM EST Respiratory Rate 20 03/03/2024 11:3 6 AM EST Oxygen Saturation 98% 03/03/2024 11: 36 AM EST Inhaled Oxygen Concentration - - Weight 87.4 kg (192 lb 10.9 oz) 024 11:36 AM EST Height 160 cm (5' 3 ) 03/03/2024 11:36 AM EST Body Mass Index 34.13 03/03/2024 11:36 AM EST Plan of Treatment Health Maintenance Due Date Last Done Comments [facility]-Infant/Child/Adol SDOH Screenings 1997 [facility]- SDOH Screenings 2015 [facility]-Adult SDOH Screenings 2015 [id number]-44 Vaccine (3 - Pfizer risk series) 03/06/2021 02/06/2021, 01/04/2021 [facility]-Influenza Vaccine (#1) 12/26/202412/29, 04/27/2023, 02/07/2022 [facility]-Pap Smear 02/07/2025 02/07/2022 [facility]-Depression Screening 03/03/2025 03/03/2024, 10/2023 [facility]-DTaP,Tdap,and Td Vaccines (8 - Td or Tdap) 12/15/2033 12/16/2023, 12/24/2016, 03/12/2010, Additional history exists [facility]-Zoster Vaccines (1 of 2) 2047 01/03/2022, 04/01/2002 [facility]-IPV Vaccines Aged Out 02/01/2002, , 02/05/1998, Additional history exists No longer eligible based on patient's age to complete this topic [facility]-HIB Vaccines Aged Out 12/20/2002, 08/1997, 1997 No longer eligible based on patient's age to complete this topic HPV Vaccines Completed 07/26/2012, 01/25, 03/12/2010 [facility]-Hepatitis A Vaccines Aged Out 018, 12/24/2016, 12/24/2016 No longer eligible based on patient's age to complete this topic [facility]-Varicella Vaccines Completed 01/03/2022, 2001 [facility]-Hepatitis B Vaccines Completed 022, 01/03/2022, 12/24/2016, Additional history exists [facility]-HIV Screening Completed 07/01/2023, , 02/07/2022, Additional history exists [facility]-Hepatitis C Screening Completed 2023, 08/05/2022, 02/07/2022, Additional history exists [facility]-Obesity Intervention Completed 024, 03/03/2024, 02/18/2024, Additional history exists [facility]-Pneumococcal Vaccine: Pediatrics (0 to 5 Years) and At-Risk Patients (6 to 49 Years) Aged Out No longer eligible based on patient's age to complete this topic [facility]-Rotavirus Vaccines Aged Out No lo nger eligible based on patient's age to complete this topic Procedures Procedure Name Priority Date/Time Associated Diagnosis Comments HEPATITIS C ANTIBODY W/REFLEX TO HCV QUANT PCR Routine 07/01/2023 11:19 AM EST Unsure of LMP (last menstrual period) as reason for ultrasound scan HIV 1/2 ANTIBODY/ANTIGEN SCREEN WITH REFLEX TO HIV I/II DIFFERENTIATION Routine 07/01/2023 11:19 AM EST Unsure of LMP (last menstrual period) as reason for ultrasound scan PAP TEST - CYTOLOGY Routine 02/07/2022 1 0:56 AM EDT Smear, vaginal, as part of routine gynecological examination from Last 3 Months or Most Recently Relevant to Health Maintenance Results * HIV 1 & 2 Antibody/Antigen Screen (07/01/2023 11:19 AM EST) HIV 1 & 2 Antibody/Antigen Screen Non Reactive Non Reactive 07/01/2023 2:34 PM EST [facility] Comment:Screening for HIV 1 & 2 antibodies, and P24 antigen is NONREACTIVE. No confirmatory testing is required. Blood Venous blood specimen / Unknown Venipuncture / Unknown 07/01/2023 11:19 AM EST 07/01/2023 1:50 PM EST Bipin Schuster MD LAB BLOOD ORDERABLES Final Resu lt Performing Organization Address [facility] [address]/[facility] Co de Phone Number [facility] [address] [place] [address] * Hepatitis C Antibody (07/01/2023 11:19 AM EST) Hepatitis C Antibody Negative Negative 07/01/2023 2:34 PM EST [facility] Blood Venous blood specimen / Unknown Venipuncture / Unknown 07/01/2023 11:19 AM EST 07/01/2023 1:50 PM EST us Bipin Schuster MD LAB BLOOD ORDERABLES Final Resu lt Performing Organization Address [facility] [address]/[facility] Co de Phone Number [facility] [address] [place] [address] * Pap Test (02/07/2022 10:56 AM EDT) Case Report Cytology Case: [id number] Authorizing Provider: Bipin Schuster MD Collected: 02/07/2022 105 Ordering Location: Obstetrics & Gynecology Received: 02/10/2022 0902 First Screen: Mayra Read Pathologist: Nerissa Mccall MD Specimen: ThinPrep Pap Test, Liquid-Based Cervical/Vaginal, CERVICAL/VAGINAL 2 2:05 PM EDT [facility] Interpretation NEGATIVE FOR INTRAEPITHELIAL LESION OR MALIGNANCY 2 2:05 PM EDT [facility] at 1405 EDT Other Findings Reactive endocervical gland cells. 2 2:05 PM EDT [facility] Specimen Adequacy Satisfactory for evaluation; endocervical/shea sformation zone component present. Slide imaged by the ThinPrep Imaging system and selected 22 worthy reviewed then full manual screening. 2 2:05 PM EDT [facility] Cervical cytology is a screening test primarily for squamous cancers and precursors and has associated false negative and positive results. New technologies such as liquid based sampling may decrease but will not eliminate all false negative results. Regular screening and follow-up of unexplained clinical signs and symptoms are recommended to minimize false negative results. Please see the ASCCP website (www.asccp.org)fo r followup recommendations. If HPV testing was requested, correlation with the results is suggested (please call Microbiology at [phone] for results). 2 2:05 PM EDT [facility] Menstrual Status Cyclic 02/18/20 2 2 2:05 PM EDT [facility] History of Hysterectomy Not Applicable 2 2:05 PM EDT [facility] Contraceptive History Not Applicable 2 2:05 PM EDT [facility] Screening Type Routine Screen 2 2:05 PM EDT [facility] High Risk? No 2 2:05 PM EDT [facility] HPV Testing Requested? Request HPV Testing Regardless of Pap Test Findings 2 2:05 PM EDT [facility] Previous Cancer History No 2 2:05 PM EDT [facility] Intradepartmental Consultation with Agreement Dr. Ck Chavez 2 2:05 PM EDT [facility] Clinical Information Z01.419, Z12.72 - Smear, vaginal, as part of routine gynecological examination [ICD-10-CM] 2 2:05 PM EDT [facility] Last Menstrual Period 01/25/2022 2 2:05 PM EDT [facility] Swab Vaginal and cervical cytologic material / Unknown Non-blood Collection / Unknown 02/07/2022 10:56 AM EDT 02/10/2022 9:02 AM EDT us Bipin Schuster MD LAB CYTOLOGY ORDERABLES Final R esult [facility] [address] [place] [address] from Last 3 Months or Most Recently Relevant to Health Maintenance Insurance [employer] MEDICAID [facility] Advance Directives * Full Code (Latest Code Status on File) Date Activated Date Inactivated Comments 01/06/2024 11:56 AM 01/16/2024 5:11 PM Question Answer Comments Patient has decision-making capacity? Yes Care Teams Clip And Hanger Attacher Relationship Specialty Start Date End Date Shaina Diaz PA [address] [place] [address] PCP - General 09/07/20
--- OUTSIDE RECORDS SUMMARY | 2025-03-06 14:04 | XMS_ITS | Encounter Summary ---
Author Organization Healthcare Address [address] [place] [address] Care Team Providers Care Separations Scientist Name Role Phone Shaina Diaz Primary Care Provider [phone] Encounter Details Date Type Department Care Team ([facility] st Contact Info) Description 07/03/2021 Outside Procedure External Location [address] [place] [address] Radha Waddell, MAGALY, [facility] [address] [place] [address] Social History Tobacco Use Types Packs/Day Years Used Date Smoking Tobacco: Every Day Smokeless Tobacco: Never Alcohol Use Standard Drinks/Week Comments No 0 (1 standard drink = 0.6 oz pur e alcohol) Comments No Sex and Gender Information Value Date Recorded Sex Assigned at Female 08/16/2024 6:29 PM EDT Legal Sex Female 6:04 PM EDT Gender Identity Female 08/16/2024 6:29 PM EDT Sexual Orientation Straight 08/16/2024 6: 29 PM EDT documented as of this encounter Plan of Treatment Not on file documented as of this encounter Procedures Procedure Name Priority Date/Time Associated Diagnosis Comments US BREAST LIMITED LEFT 07/03/2021 12:30 PM EST documented in this encounter Results * US Breast Limited Left (07/03/2021 12:30 PM EST) Anatomical Region Laterality Modality Breast Left Ultrasound 07/03/2021 12:3 0 PM EST Narrative 07/03/2021 2:44 PM EST [address] [address] Name: TIERRA GARCIA Exam Date: 07/03/2021 : 1995 Age 26 Gender: F Physician: RADHA WADDELL Facility: [facility] Facility HSV: Outpatient Exam: US BREAST LTD CHRIST BILATERAL BREAST ULTRASOUND HISTORY: Bilateral breast nodule. COMPARISON: 12/01/2019. FINDINGS: Lobulated nodule is seen in the right breast at 12 o'clock measuring 17 x 9 x 11 mm, previously 15 x 10 x 10 mm. Interval enlargement is considered minimal given nearly two years since prior exam which can be seen with fibroadenoma. Assessment of the left breast shows well-circumscribed hypoechoic lesion measuring 14 x 9 x 17 mm, previously 23 x 9 x 16 mm. No new lesion is seen. 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 BI-RADS 2: Benign. RECOMMENDATION: No additional imaging follow-up needed at this time unless lesions demonstrate enlargement based on clinical exam. Dictated By: STEVE ABDI Transcribed By: josee anthony Transcribed On: 07/03/2021 1:14 PM Electronically signed by: STEVE ABDI 07/03/2021 Thank you for referring TIERRA GARCIA to [facility]. Legally authenticated by TRINIDAD NICK 2021-07-03 14:33:23 Procedure Note Provider, Generic [place] - 07/03/[address] [address] Name: TIERRA GARCIA Exam Date: 07/03/2021 : 1995 Age 26 Gender: F Physician: RADHA WADDELL Facility: [facility] Facility HSV: Outpatient Exam: US BREAST LTD CHRIST BILATERAL BREAST ULTRASOUND HISTORY: Bilateral breast nodule. COMPARISON: 12/01/2019. FINDINGS: Lobulated nodule is seen in the right breast at 12 o'clockmeasuring 17 x 9 x 11 mm, previously 15 x 10 x 10 mm. Interval enlargement is considered minimal given nearly two years since prior exam which can beseen with fibroadenoma. Assessment of the left breast shows well-circumscribed hypoechoic lesion measuring 14 x 9 x 17 mm, previously 23 x 9 x 16 mm. No new lesion is seen. IMPRESSION: Minimal increase of right and minimal decrease of leftbreast lesions, probably fibroadenomas. BI-RADS 2: Benign. RECOMMENDATION: No additional imaging follow-up needed at this timeunless lesions demonstrate enlargement based on clinical exam. Dictated By: STEVE ABDI Transcribed By: josee anthony Transcribed On: 07/03/2021 1:14 PM Electronically signed by: STEVE ABDI 07/03/2021 Thank you for referring TIERRA GARCIA to [facility]. Legally authenticated by TRINIDAD NICK 2021-07-03 14:33:23 Radha Waddell SHAKER OUT, CNM IMG BI PROCEDURES F inal Result documented in this encounter Visit Diagnoses Not on filedocumented in this encounter Additional Health Concerns Infection Onset Date Last Indicated Resolved Time COVID-19 Rule-Out 04/26/2022 04/26/2022 04/26/2022 2:29 AM EST Assessment Noted Time A fall risk assessment has been complete d for the patient 01/23/2021 1:07 PM EDT documented as of this encounter Care Teams Separations Scientist Relationship Specialty Start Date End Date Shaina Diaz PA [address] [place] [address] PCP - General 09/07/20 documented as of this encounter
--- OUTSIDE RECORDS SUMMARY | 2025-03-06 14:04 | XMS_ITS | Encounter Summary ---
Author Organization Healthcare Address [address] [place] [address] Care Team Providers Care Manager Of Procurement Name Role Phone Joe [place] Calderon FELIPE Primary Care Provider [phone] Reason for Visit * Reason Comments Med Refill Encounter Details Date Type Department Care Team (Late st Contact Info) Description 02/27/2025 Refill Obstetrics & Gynecology [address] [place] [address] Bipin Schuster MD [address] [place] [address] Social History Tobacco Use Types Packs/Day Years Used Date Smoking Tobacco: Former Cigarettes 0.3 10 0 12/2011 - 12/2021 Smokeless Tobacco: Never Alcohol Use Standard Drinks/Week Comments No 0 (1 standard drink = 0.6 oz pur e alcohol) PHQ-2 Answer Date Recorded Patient Health Questionnaire-2 Score 0 03/03/2024 [place] Depression Scale Answer Date Recorded Yoder Depression Scale Total 0 03/03/2024 The thought [...] on file documented as of this encounter Visit Diagnoses Not on filedocumented in this encounter Additional Health Concerns Assessment Noted Time A fall risk assessment has been complete d for the patient 03/03/2024 11:35 AM EST A Body Mass Index follow-up plan has been documented for the patient 04/01/2024 3:36 PM EST documented as of this encounter Care Teams Manager Of Procurement Relationship Specialty Start Date End Date Shaina Diaz PA [address] [place] [address] PCP - General 09/07/20 documented as of this encounter
--- OUTSIDE RECORDS SUMMARY | 2025-03-06 14:04 | XMS_ITS | Encounter Summary ---
Author Organization [facility] Address [address] [place] [address] Care Team Providers Care Federal Java Developer Name Role Phone Marian Diazie Calderon FELIPE Primary Care Provider [phone] Reason for Referral * Consultation (Routine) - Authorized Specialty Diagnoses / Procedures Referred By Lebron arango Referred To Contact Neurology Diagnoses Migraine, unspecified Mireille Clark MD [address] [facility] [address] [place] [address] Phone: tel: fax: Referral ID Status Reason Start Date Expiration Date Visits Requested Visits Authorized [id number] Authorized Specialty Services Required 02/28/2025 08/30/2026 1 1 Encounter Details Date Type Department Care Team (Late st Contact Info) Description 02/28/2025 Community [facility] Community Practice [address] [place] [address] Mireille Clark MD [address] [place] [address] Migraine, unspecified (Primary Dx) Social History Tobacco Use Types Packs/Day Years Used Date Smoking Tobacco: Former Cigarettes 0.3 10 0 12/2011 - 12/2021 Smokeless Tobacco: Never Alcohol Use Standard Drinks/Week Comments No 0 (1 standard drink = 0.6 oz pur e alcohol) PHQ-2 Answer Date Recorded Patient Health Questionnaire-2 Score 0 03/03/2024 [place] Depression Scale Answer Date Recorded [place] Depression Scale Total 0 03/03/2024 The thought of harming myself has occurred to me . Never 03/03/2024 Comments No Sex and Gender Information Value Date Recorded Sex Assigned at Female 08/16/2024 6:29 PM EDT Legal Sex Female 6:04 PM EDT Gender Identity Female 08/16/2024 6:29 PM EDT Sexual Orientation Straight 08/16/2024 6: 29 PM EDT documented as of this encounter Plan of Treatment Scheduled Referrals Name Type Priority Associated Diagnoses Order Schedule Ambulatory referral to Neurology Outpatient Referral Routine Migraine, unspecified 1 Occurrences starting 02/28/2025 until 09/01/2026 documented as of this encounter Visit Diagnoses Diagnosis Migraine, unspecified- Primary documented in this encounter Additional Health Concerns Assessment Noted Time A fall risk assessment has been complete d for the patient 03/03/2024 11:35 AM EST A Body Mass Index follow-up plan has been documented for the patient 04/01/2024 3:36 PM EST documented as of this encounter Care Teams Federal Java Developer Relationship Specialty Start Date End Date Shaina Diaz PA [address] [place] [address] PCP - General 09/07/20 documented as of this encounter
[2025-03-06 14:48] LABS: Hematocrit 42.3 % (37.0-47.0); Hemoglobin 14.7 g/dL (12.2-16.2); Immature Granulocytes % 0.2 %; Mean Corpuscular HGB Conc 34.8 g/dL (31.8-35.4); Mean Corpuscular Hemoglobin 31.1 pg (27.0-31.2); Mean Corpuscular Volume 89.4 fl (81-99); Nucleated Red Blood Cells % 0 %; Platelet Count 392 K/mm3 (142-424); Red Blood Count 4.73 M/mm3 (4.20-5.40); Red Cell Distribution Width-SD 39.1 fL; White Blood Count 5.5 K/mm3 (4.8-10.8)
[2025-03-06 15:01] LABS: Alanine Aminotransferase 26 U/L (12-78); Albumin Level 4.9 g/dl (3.5-5.0); Alkaline Phosphatase 52 U/L (38-126); Anion Gap 10.0 mEq/L (5-15); Aspartate Amino Transferase 24 U/L (14-36); Bilirubin,Direct 0.1 mg/dl (0.0-0.4); Bilirubin,Indirect 0.6 mg/dL (0.0-0.9); Bilirubin,Total 0.7 mg/dl (0.2-1.3); Bilirubin,Unconjugated 0.6 mg/dL (0.0-1.1); Blood Urea Nitrogen 13 mg/dl (7-17); Calcium 9.9 mg/dl (8.4-10.2); Carbon Dioxide 31 mmol/L (22.0-30.0); Chloride 100 mmol/L (98-107); Cholesterol 138 mg/dl (140-200); Creatinine,Serum 0.80 mg/dl (0.52-1.04); Estimated Glomerular Filt Rate 86 ml/min (>60); GFR (African American) 104 ML/MIN (>60); Glucose 83 mg/dl (74-100); HDL Cholesterol 67 mg/dl (40-60); Magnesium 2.1 mg/dl (1.6-2.3); Potassium 4.0 mmoL/L (3.5-5.1); Sodium 137 mmol/L (136-145); Total Protein,Serum 7.8 g/dl (6.3-8.2); Triglycerides 105 mg/dl (30-150)
[2025-03-06 15:32] LABS: Thyroid Stimulating Hormone 4.74 uIU/mL (0.465-4.68)
[2025-03-06 15:51] LABS: Free T4 (Free Thyroxine) 1.57 ng/dl (0.78-2.19)
[2025-03-08 10:18] LABS: Albumin, U 48.4 ug/mL (Not Estab.)
== END 2025-03-06 23:59 | disposition home or self-care (01) ==
LOC: LAB 14:49
PROVIDERS: PCP Family Medicine; Visit Provider Internal Medicine
DX: R42 Dizziness and giddiness (principal); I10 Essential (primary) hypertension
CPT/HCPCS: 36415; 80048; 80061; 80076; 82043; 82570; 83735; 84439; 84443; 85025

== ENCOUNTER 2025-03-11 15:51 | Emergency (ER) | payer BC, OTHER, SELFPAY ==
[2025-03-11 16:00] VITALS: BP 131/74; PULSE 95; RESP 18; TEMP 36.8; O2SAT 99; BMI 26.4
--- NOTE | 2025-03-11 16:47 | PC.NURSE ---
Patient informed registration staff she was leaving before seeing doctor.
== END 2025-03-11 16:49 | disposition left against medical advice (07) ==
LOC: ER 16:17
PROVIDERS: Emergency Provider Student in an Organized Health Care Education/Training Program; PCP Family Medicine
DX: Z53.21 Procedure and treatment not carried out due to patient leaving prior to being seen by health care provider (principal)
CPT/HCPCS: 99211; 99282

== ENCOUNTER 2025-04-02 10:03 | Emergency (ER) | payer BC, OTHER, SELFPAY ==
[2025-04-02] VITALS (7 sets, daily range): BP systolic 108–127; BP diastolic 67–84; PULSE 76–88; RESP 16; TEMP 36.7–36.8; O2SAT 95–100; BMI 26.5
--- NOTE | 2025-04-02 10:13 | XR_ITS ---
PROCEDURE INFORMATION: Exam: XR Chest Exam date and time: 04/02/2025 10:13 AM Age: 29 years old Clinical indication: Other: Congestion; Prior surgery; Surgery date: 6+ months; Surgery type: Breast reduction & lift; Additional info: Cf pna TECHNIQUE: Imaging protocol: Radiologic exam of the chest. Views: 2 views. Total images: 2 COMPARISON: CT ANGIO CHEST PE PROTOCOL 06/14/2024 12:37 PM FINDINGS: Lungs: No consolidation. Pleural spaces: No pleural effusion. No pneumothorax. Heart/Mediastinum: No cardiomegaly. Bones/joints: Unremarkable. IMPRESSION: No acute cardiopulmonary abnormalities.
--- OUTSIDE RECORDS SUMMARY | 2025-04-02 10:14 | XMS_ITS | Encounter Summary ---
Author Organization Healthcare Address [address] [place] [address] Care Team Providers Care Logger Name Role Phone Joe [place] Calderon FELIPE Primary Care Provider [phone] Reason for Visit * Reason Comments Med Refill Encounter Details Date Type Department Care Team (Late st Contact Info) Description 02/27/2025 Refill Obstetrics & Gynecology [address] [place] [address] Bipin Schuster MD [address] [place] [address] Social History Tobacco Use Types Packs/Day Years Used Date Smoking Tobacco: Former Cigarettes 0.3 10 0 12/2011 - 12/2021 Smokeless Tobacco: Never Alcohol Use Standard Drinks/Week Comments No 0 (1 standard drink = 0.6 oz pur e alcohol) PHQ-2 Answer Date Recorded Patient Health Questionnaire-2 Score 0 03/03/2024 Malcolm Depression Scale Answer Date Recorded Malcolm Depression Scale Total 0 03/03/2024 The thought [...] documented as of this encounter Care Teams Logger Relationship Specialty Start Date End Date Shaina Diaz PA [address] [place] [address] PCP - General 09/07/20 documented as of this encounter
--- OUTSIDE RECORDS SUMMARY | 2025-04-02 10:14 | XMS_ITS | Encounter Summary ---
Author Organization Healthcare Address [address] [place] [address] Care Team Providers Care Pick Up Truck Driver Name Role Phone Shaina Diaz Primary Care Provider [phone] Encounter Details Date Type Department Care Team ([facility] st Contact Info) Description 07/03/2021 Outside Procedure External Location [address] [place] [address] Radha Waddell, MAGALY, [facility] [address] [place] [address] Social History Tobacco Use Types Packs/Day Years [...] PM EST Narrative 07/03/2021 2:44 PM EST [address] [address] Name: TIERRA GARCIA Exam Date: 07/03/2021 : 1995 Age 26 Gender: F Physician: RADHA WADDELL Facility: [facility] Facility HSV: Outpatient Exam: US [...] Thank you for referring TIERRA GARCIA to [facility]. Legally authenticated by TRINIDAD NICK 2021-07-03 14:33:23 Procedure Note Provider, Generic [place] - 07/03/[address] [address] Name: TIERRA GARCIA Exam Date: 07/03/2021 : 1995 Age 26 Gender: F Physician: RADHA WADDELL Facility: [facility] Facility HSV: Outpatient Exam: US [...] Thank you for referring TIERRA GARCIA to [facility]. Legally authenticated by TRINIDAD NICK 2021-07-03 14:33:23 Radha Waddell MAP PLOTTER, CNM IMG BI PROCEDURES F inal Result documented in this encounter Visit Diagnoses Not on filedocumented in this encounter Additional Health Concerns Infection Onset Date Last Indicated Resolved Time COVID-19 Rule-Out 04/26/2022 04/26/2022 04/26/2022 2:29 AM EST Assessment Noted Time A fall risk assessment has been complete d for the patient 01/23/2021 1:07 PM EDT documented as of this encounter Care Teams Pick Up Truck Driver Relationship Specialty Start Date End Date Shaina Diaz PA [address] [place] [address] PCP - General 09/07/20 documented as of this encounter
--- OUTSIDE RECORDS SUMMARY | 2025-04-02 10:14 | XMS_ITS | Encounter Summary ---
Author Organization [facility] Address [address] [place] [address] Care Team Providers Care Fender Repairer Name Role Phone Marian Diazie Calderon FELIPE Primary Care Provider [phone] Reason for Referral * Consultation (Routine) - Authorized Specialty Diagnoses / Procedures Referred By Lebron arango Referred To Contact Neurology Diagnoses Migraine, unspecified Mireille Clark MD [address] [facility] [address] [place] [address] Phone: tel: fax: Referral ID Status Reason Start Date Expiration Date Visits Requested Visits Authorized [id number] Authorized Specialty Services Required 02/28/2025 08/30/2026 1 1 Encounter Details Date Type Department Care Team (Late st Contact Info) Description 02/28/2025 Community [facility] [address] [place] [phone] Mireille Clark MD [address] [place] [employer] [address] [place] [address] Migraine, unspecified (Primary Dx) Social History Tobacco Use Types Packs/Day Years Used Date Smoking Tobacco: Former Cigarettes 0.3 10 0 12/2011 - 12/2021 Smokeless Tobacco: Never Alcohol Use Standard Drinks/Week Comments No 0 (1 standard drink = 0.6 oz pur e alcohol) PHQ-2 Answer Date Recorded Patient Health Questionnaire-2 Score 0 03/03/2024 [place] Depression Scale Answer Date Recorded [place] Depression Scale Total 0 03/03/2024 The thought [...] documented as of this encounter Care Teams Fender Repairer Relationship Specialty Start Date End Date Shaina Diaz PA [address] [place] [address] PCP - General 09/07/20 documented as of this encounter
--- OUTSIDE RECORDS SUMMARY | 2025-04-02 10:14 | XMS_ITS | Clinical Summary ---
Author Organization [facility] Address [address] [place] [address] Care Team Providers Care Evp And Chief Operating Officer Name Role Phone Shaina Diaz Primary Care Provider [phone] Allergies Active Allergy Reactions Criticality Noted Date Comments Morphine Hallucinations Medium 07/21/2014 Medications amphetamine-dext roamphetamine XR (Adderall XR) 30 MG 24 hr capsule Take 1 capsule (30 mg) by mouth 1 (one) time each day in the morning. Do not crush or chew. Active Mlywzaze-UcEvo-R A-DHA w/o A ( + DHA PO) 4 Active temazepam (Restoril) 7.5 MG capsule 1 capsule (7.5 mg). 2 Active sertraline (Zoloft) 100 MG tablet Take 1 tablet (100 mg) by mouth 1 (one) time each day. Active LEVOMEFOLATE GLUCOSAMINE PO Take 15 mg by mouth. 4 Active labetalol (Normodyne) 300 MG tablet Take 2 tablets (600 mg) by mouth every 8 (eight) hours. 180 tablet 2 4 Active Additional Information Patient taking differently: 100 mgOralDaily, Reported on 02/01/2024 cyclobenzaprine (Flexeril) 5 MG tablet Take 1 tablet (5 mg) by mouth 3 (three) times a day if needed for muscle spasms. 30 tablet 4 Active ibuprofen 600 MG tablet Take 1 tablet (600 mg) by mouth every 6 (six) hours. 30 tablet 2 4 Active NIFEdipine CC (Adalat CC) 30 MG 24 hr tablet Take 2 tablets (60 mg) by mouth every 12 (twelve) hours. Do not crush, chew, or split. 60 tablet 2 4 Active Qulipta 60 MG tablet 4 Active levothyroxine (Synthroid, Levoxyl) 137 MCG tablet TAKE 1 TABLET BY MOUTH EVERY MORNING 30 tablet 5 5 Active Active Problems Problem Noted Date Diagnosed Date [...] Type Department Care Team Description 02/28/2025 Community [facility] [address] [place] [address] Mireille Clark MD Migraine, unspecified (Primary Dx) 02/27/2025 Refill Obstetrics & Gynecology [address] [place] [phone] Bipin Schuster MD from Last 3 [...] Recorded Patient Health Questionnaire-2 Score 0 03/03/2024 [place] Depression Scale Answer Date Recorded [place] Depression Scale Total 0 03/03/2024 The thought [...] Health Maintenance Due Date Last Done Comments [facility]-/Child/Adol SDOH Screenings 1997 [facility]- SDOH Screenings 2015 [facility]-Adult SDOH Screenings 2015 [id number] Vaccine (3 - Pfizer risk series) 03/06/2021 [...] Reactive Non Reactive 07/01/2023 2:34 PM EST [facility] Comment:Screening for HIV 1 & 2 antibodies, and P24 antigen is NONREACTIVE. No confirmatory testing is required. Blood Venous blood specimen / Unknown Venipuncture / Unknown 07/01/2023 11:19 AM EST 07/01/2023 1:50 PM EST Bipin Schuster MD LAB BLOOD ORDERABLES Final Resu lt Performing Organization Address [facility] Phone Number HEALTHCARE [facility] [address] [place] [address] * Hepatitis C Antibody (07/01/2023 11:19 AM EST) Hepatitis C Antibody Negative Negative 07/01/2023 2:34 PM EST [facility] Blood Venous blood specimen / Unknown Venipuncture / Unknown 07/01/2023 11:19 AM EST 07/01/2023 1:50 PM EST us Bipin Schuster MD LAB BLOOD ORDERABLES Final Resu lt Performing Organization Address [facility] Co or Phone Number [facility] [address] [place] [address] * Pap Test (02/07/2022 10:56 AM EDT) Case Report Cytology Case: [id number] Authorizing Provider: Bipin Schuster MD Collected: 02/07/2022 1056 Ordering Location: Obstetrics & Gynecology Received: 02/10/2022 0902 First Screen: Mayra Read Pathologist: Nerissa Mccall MD Specimen: ThinPrep Pap Test, Liquid-Based Cervical/Vaginal, CERVICAL/VAGINAL 2 2:05 PM EDT [facility] Interpretation NEGATIVE FOR INTRAEPITHELIAL LESION OR MALIGNANCY 2 2:05 PM EDT [facility] at 1405 EDT Other Findings Reactive endocervical gland cells. 2 2:05 PM EDT [facility] Specimen Adequacy Satisfactory for evaluation; endocervical/shea sformation zone component present. Slide imaged by the ThinPrep Imaging system and selected 22 worthy reviewed then full manual screening. 2 2:05 PM EDT [facility] Cervical cytology is a screening test [...] results is suggested (please call Microbiology at [phone] for results). 2 2:05 PM EDT [facility] Menstrual Status Cyclic 02/18/20 2 2 2:05 PM EDT [facility] History of Hysterectomy Not Applicable 2 2:05 PM EDT [facility] Contraceptive History Not Applicable 2 2:05 PM EDT [facility] Screening Type Routine Screen 2 2:05 PM EDT [facility] High Risk? No 2 2:05 PM EDT [facility] HPV Testing Requested? Request HPV Testing Regardless of Pap Test Findings 2 2:05 PM EDT [facility] Previous Cancer History No 2 2:05 PM EDT [facility] Intradepartmental Consultation with Agreement Dr. Ck Chavez 2 2:05 PM EDT [facility] Clinical Information Z01.419, Z12.72 - Smear, vaginal, as part of routine gynecological examination [ICD-10-CM] 2 2:05 PM EDT [facility] Last Menstrual Period 01/25/2022 2 2:05 PM EDT [facility] Swab Vaginal and cervical cytologic material / Unknown Non-blood Collection / Unknown 02/07/2022 10:56 AM EDT 02/10/2022 9:02 AM EDT Bipin Schuster MD LAB CYTOLOGY ORDERABLES Final R esult Performing Organization Address City/State/[facility] Co de Phone Number HEALTHCARE LAB [address] [place] [address] from Last 3 Months or Most Recently Relevant to Health Maintenance Insurance [employer]ICAID [facility] Advance Directives * Full Code (Latest Code Status on File) Date Activated Date Inactivated Comments 01/06/2024 11:56 AM 01/16/2024 5:11 PM Question Answer Comments Patient has decision-making capacity? Yes Care Teams Evp And Chief Operating Officer Relationship Specialty Start Date End Date Shaina Diaz PA [address] [place] [address] [facility] - General 09/07/20
--- NOTE | 2025-04-02 10:15 | ED_ITS ---
Discharge Plan Disposition Patient Disposition: Home, Self-Care Prescriptions Prescriptions: No Action levomefolate calcium [L-Methylfolate] 15 mg tablet 15 mg PO DAILY Qty: 30 11RF aspirin [Adult Aspirin Regimen] 81 mg tablet,delayed release (DR/EC) 81 mg PO DAILY losartan 25 mg tablet 25 mg PO DAILY Qty: 90 3RF levothyroxine 137 mcg tablet PO Patient Comments: TAKE 1 TABLET BY MOUTH EVERY MORNING DHA 200 mg capsule 200 mg PO DAILY Slow-Mag 71.5 mg tablet,delayed release (DR/EC) 71.5 mg PO DAILY All Day Allergy (cetirizine) 10 mg capsule 10 mg PO DAILY Probiotic-10 20 billion cell capsule 1 cap PO DAILY rosuvastatin 20 mg tablet See Rx Instructions .ROUTE .COMPLEX Qty: 30 11RF Dose Instruction: TAKE 1 TABLET BY MOUTH ONCE A DAY Rx Instructions: TAKE 1 TABLET BY MOUTH ONCE A DAY sertraline 100 mg tablet See Rx Instructions .ROUTE .COMPLEX Qty: 45 2RF Dose Instruction: TAKE 1 AND 1/2 TABLETS BY MOUTH ONCE A DAY Rx Instructions: TAKE 1 AND 1/2 TABLETS BY MOUTH ONCE A DAY propranolol 60 mg capsule,extended release 24 hr 60 mg PO TID Qty: 90 6RF Rx Instructions: 60 mg in the morning and 120 mg in the evening Nurtec ODT 75 mg tablet,disintegrating See Rx Instructions .ROUTE .COMPLEX Qty: 8 5RF Dose Instruction: DISSOLVE 1 TABLET ON THE TONGUE EVERY OTHER DAY Rx Instructions: Dissolve one tablet as needed. Max 1 tablet daily. tizanidine 4 mg tablet See Rx Instructions .ROUTE .COMPLEX Qty: 90 2RF Dose Instruction: TAKE 1 TABLET BY MOUTH 3 TIMES A DAY NEEDED FOR MUSCLE SPASMS Rx Instructions: TAKE 1 TABLET BY MOUTH 3 TIMES A DAY NEEDED FOR MUSCLE SPASMS Ajovy Autoinjector 225 mg/1.5 mL auto-injector 225 mg SQ QMONTH Qty: 1.5 1RF hydrochlorothiazide 25 mg tablet 25 mg PO DAILY Qty: 30 3RF temazepam 15 mg capsule 15 mg PO HS Qty: 30 0RF lorazepam [Ativan] 1 mg tablet 1 mg PO BID Qty: 60 0RF dextroamphetamine-amphetamine [Adderall XR] 30 mg capsule,extended release 24hr 60 mg PO DAILY Qty: 60 0RF Referrals Follow up/Referrals: Mark Mccollum MD [Primary Care Provider, Family Practice] - See instructions Clinical Impressions Clinical Impression: Bronchitis Instructions Patient Instructions: Cough Print Language Print Language: Sinhala Discharge ED Provider: Bon Espinosa General Adult HPI General Chief complaint: Cough Stated complaint: coughing up blood, conjestion Time Seen by Provider: 04/02/25 10:13 History of Present Illness HPI narrative: Patient is a 29-year-old female with history of hypertension after for which she was on losartan stopped her hydrochlorothiazide recently complains of congestion and cough inability to get a deep breath and rest colored sputum. She has had similar issues in the past with her diagnosis bronchitis and responded to ceftriaxone injection. She is not on any OCPs or blood thinners and has no history of clot. She has follow-up with cardiology here tomorrow for hypertension. Related Data Home Medications ?Medication ?Instructions ?Recorded ?Confirmed docosahexaenoic acid 200 mg 200 mg PO DAILY SUPPLIMENT 05/11/24 04/02/25 capsule ( DHA) magnesium chloride 71.5 mg 71.5 mg PO DAILY 05/11/24 1 06/03/24 (magnesium chloride) tablet,delayed release (Slow-Mag) aspirin 81 mg tablet,delayed 81 mg PO DAILY 06/15/24 1 06/03/24 release (Adult Aspirin Regimen) L.acid,brev,bulg,casei,parac,plan,saliv-B.anim 1 cap P O DAILY Gut health 06/27/24 04/02/25 20 billion cell capsule (Probiotic-10) cetirizine 10 mg capsule (All Day 10 mg PO DAILY ALLER GIES 12/12/24 04/02/25 Allergy (cetirizine)) levothyroxine 137 mcg tablet mcg PO 12/31/24 04/02/25 Previous Rx's ?Medication ?Instructions ?Recorded levomefolate calcium 15 mg tablet 15 mg PO DAILY #30 t abs 09/30/23 (L-Methylfolate) losartan 25 mg tablet 25 mg PO DAILY #90 tabs 05/29 10/19 rosuvastatin 20 mg tablet See Rx Instructions .Route 0 11/28/24 .COMPLEX #30 tabs sertraline 100 mg tablet See Rx Instructions .Route 0 01/19/25 .COMPLEX #45 tabs propranolol 60 mg capsule,24 60 mg PO TID Tachycardia, migraine 10/14/25 hr,extended release prevention #90 caps rimegepant 75 mg disintegrating See Rx Instructions .R oute 02/07/25 tablet (Nurtec ODT) .COMPLEX #8 tabs tizanidine 4 mg tablet See Rx Instructions .Route 1 .COMPLEX #90 tabs fremanezumab-vfrm 225 mg/1.5 mL 225 mg (1.5 mL) SQ QMO NTH migraine 03/09/25 subcutaneous auto-injector (Ajovy) headache #1.5 mL hydrochlorothiazide 25 mg tablet 25 mg PO DAILY #30 ta bs 03/20/25 dextroamphetamine-amphetamine ER 60 mg (2 x 30 mg) PO DAILY #60 caps 03/31/25 30 mg 24hr capsule,extend release (Adderall XR) lorazepam 1 mg tablet (Ativan) 1 mg PO BID #60 tabs temazepam 15 mg capsule 15 mg PO HS #30 caps 5 Allergies Allergy/AdvReac Type Severity Reaction Status Date / Time morphine (MORPHINE) Allergy Unknown Hallucinati Verified 04/02/25 09:49 [facility] Disclaimer: The information contained in this section may have been updated after the patient was seen, as this information can be updated by other users. Medical History (Updated 04/02/25 @ 13:19 by Bon Espinosa MD) Blood-tinged sputum History of pre-eclampsia Palpitations Dyspnea Dizziness Migraine Hyperlipidemia Acne Insomnia Hypothyroidism Surgical History History of bilateral tubal ligation Hx of section Bariatric surgery status Family History Other Heart attack Hyperlipidemia Hypertension Thyroid disorder Social History Smoking Status: Current every day smoker tobacco type: e-cigarettes smoking status start date: Stating smoking cigarettes around age 18, now vapes daily. 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 current occupational exposures/hazards: No caffeine: Yes major/episcopalian: Alevism special major needs: No Have you lived/traveled outside US in past 30 days?: No Contact w/someone who lives/traveled outside US past 30 days?: No Exposure to someone with infectious disease in past 14 days?: No Do you have a fever (greater than 100.4 F or 38 C)?: No Have you tested positive for COVID-19?: No Exposed to someone with COVID-19 in past 14 days?: No Do you have a sore throat?: No Do you have a cough?: Yes Do you have any weakness?: No Do you have any diarrhea?: No Are you experiencing any unusual bleeding?: Yes Do you have any muscle aches/pain?: No Do you have any abdominal pain?: No Are you experiencing loss of taste or smell?: No Other Medical History Have you received the Flu Vaccine for this season: Yes Have you received the Pneumonia Vaccine: No ROS Obtained: Yes Systems reviewed as appropriate & no additional complaints except as documented Physical Exam General General appearance: alert Respiratory Respiratory exam: Present other (saturating appropriately on room air ) Cardiovascular Cardiovascular exam: Present regular rate Neurological Exam Neurological exam: Present alert and oriented X3 Medical Decision Making Medical Records Screening: Per USPSTF and CDC recommendations, given the prevalence of disease in our region, it is our hospital?s policy to screen for HIV and viral Hepatitis for all patients aged 18 and over and those with ongoing risk factors. Floyd Inquiry Pt receiving controlled substance: No Vital Signs: 04/02/25 10:06 04/02/25 10:13 04/02/25 10:30 Temperature 98.1 F Temperature Source Oral Pulse Rate 88 84 Pulse Rate [Right Radial] 85 Respiratory Rate 16 Blood Pressure 121/84 117/68 Blood Pressure [Right Arm] 121/84 Blood Pressure Mean [Right Arm] 96 Blood Pressure Source Blood Pressure Source [Right Arm] Automatic Cuff Blood Pressure Position Blood Pressure Position [Right Arm] Supine 02 Sat by Pulse Oximetry 95 98 99 Oxygen Delivery Method Room Air 04/02/25 11:00 04/02/25 11:30 04/02/25 13:05 Temperature Temperature Source Pulse Rate 85 81 76 Pulse Rate [Right Radial] Respiratory Rate Blood Pressure 121/84 127/79 108/67 L Blood Pressure [Right Arm] Blood Pressure Mean [Right Arm] Blood Pressure Source Blood Pressure Source [Right Arm] Blood Pressure Position Blood Pressure Position [Right Arm] 02 Sat by Pulse Oximetry 100 99 100 Oxygen Delivery Method Room Air 04/02/25 13:32 Temperature 98.2 F Temperature Source Oral Pulse Rate 80 Pulse Rate [Right Radial] Respiratory Rate 16 Blood Pressure 119/80 Blood Pressure [Right Arm] Blood Pressure Mean [Right Arm] Blood Pressure Source Automatic Cuff Blood Pressure Source [Right Arm] Blood Pressure Position Sitting Blood Pressure Position [Right Arm] 02 Sat by Pulse Oximetry Oxygen Delivery Method Room Air Lab Data Lab Results 04/02/25 10:11: WBC 6.1, RBC 4.49, Hgb 14.4, Hct 41.5, MCV 92.4, MCH 32.1 H, MCHC 34.7, RDW 12.2, Plt Count 377, MPV 10.5 H, Neut % (Auto) 58.2, Lymph % (Auto) 28.6, Mcminn % (Auto) 6.9, Eos % (Auto) 5.6, Baso % (Auto) 0.5, Neut # (Auto) 3.5, Lymph # (Auto) 1.7, Mcminn # (Auto) 0.4, Eos # (Auto) 0.3, Baso # (Auto) 0.0, D-Dimer 0.53 H, Sodium 136, Potassium 2.8 L*, Chloride 104, Carbon Dioxide 25, Anion Gap 9.8, BUN 12, Creatinine 0.80, Estimated Creat Clear 113, Estimated GFR 86, Est GFR ( Amer) 104, Glucose 112 H, Calcium 9.4, Magnesium 2.0, Total Bilirubin 0.6, AST 27, ALT 31, Alkaline Phosphatase 57, Total Protein 7.2, Albumin 4.6, Globulin 2.6, Albumin/Globulin Ratio 1.8 04/02/25 10:11 04/02/25 10:11 Orders (Tests/Meds): ED MEDICATIONS Discontinued Medications Generic Name Dose Route Start Last Admin Trade Name Freq PRN Reason Stop Dose Admin Acetaminophen 1,000 mg 04/02/25 12:51 04/02/25 13:02 Acetaminophen 500mg Tab PO 04/02/25 12:52 1,000 mg ONCE ONE Administration Ceftriaxone Sodium 500 mg 04/02/25 13:17 04/02/25 13:25 Ceftriaxone 500mg Vial IM 04/02/25 13:18 500 mg ONCE ONE Administration Iopamidol 70 ml 04/02/25 12:12 04/02/25 12:13 Iopamidol-370 (76%);100ml Bottle IV 04/02/25 12:13 70 ml ONCE ONE Administration Lidocaine HCl 0 ml 04/02/25 13:17 04/02/25 13:26 Lidocaine 1% 5ml Pf Vial IM 04/02/25 13:18 1.8 ml ONCE ONE Administration Naproxen 500 mg 04/02/25 13:00 04/02/25 13:02 Naproxen 500mg Tablet PO 05/02/25 12:59 500 mg BID KORINA Administration Potassium Chloride 40 meq 04/02/25 10:54 04/02/25 10:58 Potassium Chloride 20meq Tab PO 04/02/25 10:55 40 meq ONCE ONE Administration Sodium Chloride 10 ml 04/02/25 12:12 04/02/25 12:13 Sodium Chloride 0.9% 10ml Syr (Rad Only) IV 05/02/25 12:11 10 ml NEEDED PRN Administration Maintain IV Site Sodium Chloride 50 ml 04/02/25 12:12 04/02/25 12:13 0.9 % Sodium Chloride 50 Ml Vial IV 04/02/25 12:13 50 ml ONCE ONE Administration ORDERS Category Date Time Status CTA Chest [CT angio chest PE protocol] Stat Cat Scan 04/02/25 11:50 Completed Chest XR 2 view (NOT portable) [XR chest 2V] Stat Exams 04/02/25 10:13 Completed CBC w/Auto Diff [Complete Blood Count Auto Diff] Stat Lab 04/02/25 10:11 Completed CMP [Comprehensive Metabolic Panel] Stat Lab 04/02/25 10:11 Completed D-Dimer Stat Lab 04/02/25 10:11 Completed Magnesium Stat Lab 04/02/25 10:11 Completed Medical Decision Narrative: Patient is a 29 yo female with about 4 days of hemoptysis and feelings of being unable to get a deep breath. her lab evaluation was notable for mildly elevated d dimer. due to this, obtained ct pe, which was personally reviewed and negative for pe. discussed with patient that given cxr and ct without evidence of pna, suspected viral proces. further cbc without significant leukocytosis or anemia. discussed her hypok, prescribed one time suppleemnt in the ed. suspect secondary to her thiazide diuretic, which she may be coming off of, and angela't taken in 3 days. advised she keep scheduled f/u with cardiology tomorrow for further discussion. discussed risks and benefits of im rocephin given the patients abscence of consolidation and brief time course, however, with knowlegdge that there is a good chance this is a viral process, patient ultimately elected to proceed with 1x rocephin im. given return precautions. Critical Care Critical Care Time Critical Care Time: No
[2025-04-02 10:44] LABS: Hematocrit 41.5 % (37.0-47.0); Hemoglobin 14.4 g/dL (12.2-16.2); Immature Granulocytes % 0.2 %; Mean Corpuscular HGB Conc 34.7 g/dL (31.8-35.4); Mean Corpuscular Hemoglobin 32.1 pg (27.0-31.2); Mean Corpuscular Volume 92.4 fl (81-99); Nucleated Red Blood Cells % 0 %; Platelet Count 377 K/mm3 (142-424); Red Blood Count 4.49 M/mm3 (4.20-5.40); Red Cell Distribution Width-SD 41.5 fL; White Blood Count 6.1 K/mm3 (4.8-10.8)
[2025-04-02 10:50] LABS: Alanine Aminotransferase 31 U/L (12-78); Albumin Level 4.6 g/dl (3.5-5.0); Albumin/Globulin Ratio 1.8 (1.1-1.8); Alkaline Phosphatase 57 U/L (38-126); Anion Gap 9.8 mEq/L (5-15); Aspartate Amino Transferase 27 U/L (14-36); Bilirubin,Total 0.6 mg/dl (0.2-1.3); Blood Urea Nitrogen 12 mg/dl (7-17); Calcium 9.4 mg/dl (8.4-10.2); Carbon Dioxide 25 mmol/L (22.0-30.0); Chloride 104 mmol/L (98-107); Creatinine Clearance Estimated 113 mL/min (50-200); Creatinine,Serum 0.80 mg/dl (0.52-1.04); Estimated Glomerular Filt Rate 86 ml/min (>60); GFR (African American) 104 ML/MIN (>60); Globulin 2.6 g/dL (1.3-3.2); Glucose 112 mg/dl (74-100); Magnesium 2.0 mg/dl (1.6-2.3); Sodium 136 mmol/L (136-145); Total Protein,Serum 7.2 g/dl (6.3-8.2)
[2025-04-02 10:52] LABS: Potassium 2.8 mmoL/L (3.5-5.1)
[2025-04-02 10:54] LABS: D-Dimer 0.53 ug/mL (0.0-0.5)
[2025-04-02] MEDS: POTASSIUM CHLORIDE 20MEQ TAB 40 MEQ PO (10:58)
--- NOTE | 2025-04-02 11:50 | CT_ITS ---
PROCEDURE INFORMATION: Exam: CTA Chest With Contrast Exam date and time: 04/02/2025 12:12 PM Age: 29 years old Clinical indication: Other: Hemoptysis TECHNIQUE: Imaging protocol: Computed tomographic angiography of the chest with contrast. Exam focused on the arteries. 3D rendering (Not supervised by radiologist): MIP and/or 3D reconstructed images were created by the technologist. Radiation optimization: All CT scans at this facility use at least one of these dose optimization techniques: automated exposure control; mA and/or kV adjustment per patient size (includes targeted exams where dose is matched to clinical indication); or iterative reconstruction. Contrast material: ISO 370; Contrast volume: 70 ml; Contrast route: INTRAVENOUS (IV); COMPARISON: CT ANGIO CHEST PE PROTOCOL 06/14/2024 12:37 PM FINDINGS: Pulmonary arteries: Negative for acute pulmonary embolism. Aorta: Unremarkable. No aortic aneurysm. No aortic dissection. Lungs: Unremarkable. No consolidation. No masses. Pleural spaces: Unremarkable. No pneumothorax. No pleural effusion. Heart: Unremarkable. No cardiomegaly. No pericardial effusion. Lymph nodes: Unremarkable. No enlarged lymph nodes. Bones/joints: Unremarkable. No acute fracture. Soft tissues: Stable surgical changes along the stomach. Other findings: Previous granulomatous exposure. IMPRESSION: Negative for acute pulmonary embolism.
[2025-04-02] MEDS: 0.9 % SODIUM CHLORIDE 50 ML VIAL IV (12:13)
[2025-04-02] MEDS: IOPAMIDOL-370 (76%);100ML BOTTLE 70 ML IV (12:13)
[2025-04-02] MEDS: SODIUM CHLORIDE 0.9% 10ML SYR (RAD ONLY) 10 ML IV (12:13)
--- NOTE | 2025-04-02 12:50 | PC.NURSE ---
The pts family member asked if she could have something to eat. I asked and ordered her a lunch tray. I went bedside to round and inform her. She asked for something for a SZYMANSKI and coloring book. Coloring book provided. notified of med request. no new complaints. no other needs voiced. call grissom in reach.
[2025-04-02] MEDS: NAPROXEN 500MG TABLET 500 MG PO (13:02)
[2025-04-02] MEDS: ACETAMINOPHEN 500MG TAB 1000 MG PO (13:02)
[2025-04-02] MEDS: LIDOCAINE 1% 5ML PF VIAL IM (13:26)
== END 2025-04-02 13:32 | disposition home or self-care (01) ==
PROVIDERS: Emergency Provider Student in an Organized Health Care Education/Training Program; PCP Family Medicine
DX: J40 Bronchitis, not specified as acute or chronic (principal); I10 Essential (primary) hypertension; E78.5 Hyperlipidemia, unspecified; E03.9 Hypothyroidism, unspecified; F17.290 Nicotine dependence, other tobacco product, uncomplicated; Z79.82 Long term (current) use of aspirin; Z79.890 Hormone replacement therapy; Z79.899 Other long term (current) drug therapy
CPT/HCPCS: 71046; 71275; 80053; 83735; 85025; 85378; 96360; 96372; 99285; J0696; J2003; Q9967

== ENCOUNTER 2025-04-06 07:53 | Outpatient (CLI) | payer BC, OTHER, SELFPAY ==
--- NOTE | 2025-04-06 08:00 | CA_ITS ---
APPROVED REPORT EXAM: Limited 2D Echocardiogram Medical Orderly: Clara Carrillo RDCS Ht: 5 ft 3 in Wt: 153lbs BSA: 1.73 BP: 107/75 mmHg Indications: CHECK PERICARDIAL EFFUSION LIMITED STUDY M-Mode Dimensions RVDd 1.24 cm (0.9-2.6) LA Diam 2.72 cm (1.9-4.0) LVDd 4.92 cm (3.5-5.7) LVDs 3.50 cm (3.5-5.7) IVSd 0.59 cm (0.6-1.1) PWd 0.46 cm (0.6-1.1) EF (Teich) 55.30% FS 28.90% EDV (Teich) 113.90 mL ESV (Teich) 50.90 mL LV Diastology E Decel Time 183 (160-240 msec) E/A Ratio 2.5 Mitral Valve MV E Max Clement. 85.0 (40-130 cm/s) MV A Velocity 34.0 (40-130 cm/s) E/A Ratio 2.49 MV PHT 54.0 ms Other Information Study Quality: Fair Conclusion This is a limited TTE to evaluate for pericardial effusion. Limited windows are obtained. There is no evidence of pericardial effusion in the available views. Electronically signed by : Marce Pineda MD 04/07/2025 17:12:39
== END 2025-04-06 23:59 | disposition home or self-care (01) ==
LOC: RT 07:54
PROVIDERS: PCP Family Medicine; Visit Provider Internal Medicine
DX: E87.6 Hypokalemia (principal); I15.8 Other secondary hypertension; I31.39 Other pericardial effusion (noninflammatory)
CPT/HCPCS: 93308

== ENCOUNTER 2025-04-13 13:48 | Outpatient (CLI) | payer BC, OTHER, SELFPAY ==
--- OUTSIDE RECORDS SUMMARY | 2025-04-13 14:01 | XMS_ITS | Encounter Summary ---
Author Organization Healthcare Address [address] [place] [address] Care Team Providers Care Insurance Adviser Name Role Phone Shaina Diaz Primary Care Provider [phone] Encounter Details Date Type Department Care Team ([facility] st Contact Info) Description 07/03/2021 Outside Procedure External Location [address] [place] [address] Radha Waddell, MAGALY, [facility] [address] [place] [address] Social History Tobacco Use Types Packs/Day Years [...] PM EST Narrative 07/03/2021 2:44 PM EST [address] [address] Name: TIERRA GARCIA Exam Date: 07/03/2021 : 1995 Age 26 Gender: F Physician: RADHA WADDELL Facility: [facility] Facility HSV: Outpatient Exam: US BREAST [...] Thank you for referring TIERRA GARCIA to [facility]. Legally authenticated by TRINIDAD NICK 2021-07-03 14:33:23 Procedure Note Provider, Generic [place] - 07/03/[address] [address] Name: TIERRA GARCIA Exam Date: 07/03/2021 : 1995 Age 26 Gender: F Physician: RADHA WADDELL Facility: [facility] Facility HSV: Outpatient Exam: US BREAST [...] Thank you for referring TIERRA GARCIA to [facility]. Legally authenticated by TRINIDAD NICK 2021-07-03 14:33:23 Radha Waddell [facility], CNM IMG BI PROCEDURES F inal Result documented in this encounter Visit Diagnoses Not on filedocumented in this encounter Additional Health Concerns Infection Onset Date Last Indicated Resolved Time COVID-19 Rule-Out 04/26/2022 04/26/2022 04/26/2022 2:29 AM EST Assessment Noted Time A fall risk assessment has been complete d for the patient 01/23/2021 1:07 PM EDT documented as of this encounter Care Teams Insurance Adviser Relationship Specialty Start Date End Date Shaina Diaz PA [address] [place] [address] PCP - General 09/07/20 documented as of this encounter
--- OUTSIDE RECORDS SUMMARY | 2025-04-13 14:01 | XMS_ITS | Clinical Summary ---
Author Organization [facility] Address [address] [place] [address] Care Team Providers Care Armature Winder Helper Repair Name Role Phone Shaina Diaz Primary Care Provider [phone] Allergies Active Allergy Reactions Criticality Noted Date Comments Morphine Hallucinations Medium 07/21/2014 Medications amphetamine-dext roamphetamine XR (Adderall XR) 30 MG 24 hr capsule Take 1 capsule (30 mg) by mouth 1 (one) time each day in the morning. Do not crush or chew. Active Irjkjkba-PfWsb-O A-DHA w/o A ( + DHA PO) [...] Type Department Care Team Description 02/28/2025 Community [facility] [address] [place] [address] Mireille Clark MD Migraine, unspecified (Primary Dx) 02/27/2025 Refill Obstetrics & Gynecology [address] [place] [phone] Bipin Schuster MD from Last 3 [...] Recorded Patient Health Questionnaire-2 Score 0 03/03/2024 [place] Depression Scale Answer Date Recorded [place] Depression Scale Total 0 03/03/2024 The thought [...] SDOH Screenings 2015 UKY-Adult SDOH Screenings 2015 [id number]-05 Vaccine (3 - Pfizer risk series) 03/06/2021 [...] Reactive Non Reactive 07/01/2023 2:34 PM EST [facility] Comment:Screening for HIV 1 & 2 antibodies, and P24 antigen is NONREACTIVE. No confirmatory testing is required. Blood Venous blood specimen / Unknown Venipuncture / Unknown 07/01/2023 11:19 AM EST 07/01/2023 1:50 PM EST Bipin Schuster MD LAB BLOOD ORDERABLES Final Resu lt Performing Organization Address [facility] Phone Number [facility]ALTH[facility]ARE [facility] [address] [place] [address] * Hepatitis C Antibody (07/01/2023 11:19 AM EST) Hepatitis C Antibody Negative Negative 07/01/2023 2:34 PM EST [facility] Blood Venous blood specimen / Unknown Venipuncture / Unknown 07/01/2023 11:19 AM EST 07/01/2023 1:50 PM EST us Bipin Schuster MD LAB BLOOD ORDERABLES Final Resu lt Performing Organization Address [facility] [place] Phone Number [facility] [address] [place] [address] * Pap Test (02/07/2022 10:56 AM EDT) Case Report Cytology Case: [id number] Authorizing Provider: Bipin Schuster MD Collected: 02/07/2022 1056 Ordering Location: Obstetrics & Gynecology Received: 02/10/2022 0902 First Screen: Mayra Read Pathologist: Nerissa Mccall MD Specimen: ThinPrep Pap Test, Liquid-Based Cervical/Vaginal, CERVICAL/VAGINAL 2 2:05 PM EDT [facility] Interpretation NEGATIVE FOR INTRAEPITHELIAL LESION OR MALIGNANCY 2 2:05 PM EDT [facility] at 1405 EDT Other Findings Reactive endocervical gland cells. 2 2:05 PM EDT [facility] Specimen Adequacy Satisfactory for evaluation; endocervical/shea sformation zone component present. Slide imaged by the ThinPrep Imaging system and selected 22 worthy reviewed then full manual screening. 2 2:05 PM EDT [facility] Cervical cytology is a screening test [...] results is suggested (please call Microbiology at [phone] for results). 2 2:05 PM EDT [facility] Menstrual Status Cyclic 02/18/20 2 2 2:05 PM EDT [facility] History of Hysterectomy Not Applicable 2 2:05 PM EDT [facility] Contraceptive History Not Applicable 2 2:05 PM EDT [facility] Screening Type Routine Screen 2 2:05 PM EDT [facility] High Risk? No 2 2:05 PM EDT [facility] HPV Testing Requested? Request HPV Testing Regardless of Pap Test Findings 2 2:05 PM EDT [facility] Previous Cancer History No 2 2:05 PM EDT [facility] Intradepartmental Consultation with Agreement Dr. Ck Chavez 2 2:05 PM EDT [facility] Clinical Information Z01.419, Z12.72 - Smear, vaginal, as part of routine gynecological examination [ICD-10-CM] 2 2:05 PM EDT [facility] Last Menstrual Period 01/25/2022 2 2:05 PM EDT [facility] Swab Vaginal and cervical cytologic material / Unknown Non-blood Collection / Unknown 02/07/2022 10:56 AM EDT 02/10/2022 9:02 AM EDT Bipin Scuhster MD LAB CYTOLOGY ORDERABLES Final R esult Performing Organization Address City/State/[facility] Co de Phone Number HEALTHCARE LAB [address] [place] [address] from Last 3 Months or Most Recently Relevant to Health Maintenance Insurance [employer] MEDICAID [facility] Advance Directives * Full Code (Latest Code Status on File) Date Activated Date Inactivated Comments 01/06/2024 11:56 AM 01/16/2024 5:11 PM Question Answer Comments Patient has decision-making capacity? Yes Care Teams Armature Winder Helper Repair Relationship Specialty Start Date End Date Shaina Diaz PA [address] [place] [address] [facility] - General 09/07/20
--- OUTSIDE RECORDS SUMMARY | 2025-04-13 14:01 | XMS_ITS | Encounter Summary ---
Author Organization Healthcare Address [address] [place] [address] Care Team Providers Care Renal Dialysis Rn Name Role Phone Joe Eureka Calderon FELIPE Primary Care Provider [phone] Reason for Visit * Reason Comments Med Refill Encounter Details Date Type Department Care Team (Late st Contact Info) Description 02/27/2025 Refill Obstetrics & Gynecology [address] [place] [address] Bipin Schuster MD [address] [place] [address] Social History Tobacco Use Types Packs/Day Years Used Date Smoking Tobacco: Former Cigarettes 0.3 10 0 12/2011 - 12/2021 Smokeless Tobacco: Never Alcohol Use Standard Drinks/Week Comments No 0 (1 standard drink = 0.6 oz pur e alcohol) PHQ-2 Answer Date Recorded Patient Health Questionnaire-2 Score 0 03/03/2024 [place] Depression Scale Answer Date Recorded [place] Depression Scale Total 0 03/03/2024 The thought [...] documented as of this encounter Care Teams Renal Dialysis Rn Relationship Specialty Start Date End Date Shaina Diaz PA [address] [place] [address] PCP - General 09/07/20 documented as of this encounter
--- OUTSIDE RECORDS SUMMARY | 2025-04-13 14:01 | XMS_ITS | Encounter Summary ---
Author Organization [facility] Address [address] [place] [address] Care Team Providers Care Welfare Analyst Name Role Phone Marian Diazie Calderon FELIPE Primary Care Provider Reason for Referral * Consultation (Routine) - Authorized Specialty Diagnoses / Procedures Referred By Lebron arango Referred To Contact Neurology Diagnoses Migraine, unspecified Mireille Clark MD [address] [facility] [address] [place] [address] Phone: tel: fax: Referral ID Status Reason Start Date Expiration Date Visits Requested Visits Authorized [id number] Authorized Specialty Services Required 02/28/2025 08/30/2026 1 1 Encounter Details Date Type Department Care Team (Late st Contact Info) Description 02/28/2025 Community [facility] [address] [place] [phone] Mireille Clark MD [address] [place] [address] Migraine, unspecified (Primary Dx) Social History Tobacco Use Types Packs/Day Years Used Date Smoking Tobacco: Former Cigarettes 0.3 10 0 12/2011 - 12/2021 Smokeless Tobacco: Never Alcohol Use Standard Drinks/Week Comments No 0 (1 standard drink = 0.6 oz pur e alcohol) PHQ-2 Answer Date Recorded Patient Health Questionnaire-2 Score 0 03/03/2024 [place] Depression Scale Answer Date Recorded [place] Depression Scale Total 0 03/03/2024 The thought [...] documented as of this encounter Care Teams Welfare Analyst Relationship Specialty Start Date End Date Shaina Diaz PA [address] [place] [address] PCP - General 09/07/20 documented as of this encounter
[2025-04-13 14:36] LABS: Hematocrit 41.2 % (37.0-47.0); Hemoglobin 13.5 g/dL (12.2-16.2); Immature Granulocytes % 0.3 %; Mean Corpuscular HGB Conc 32.8 g/dL (31.8-35.4); Mean Corpuscular Hemoglobin 31.3 pg (27.0-31.2); Mean Corpuscular Volume 95.4 fl (81-99); Nucleated Red Blood Cells % 0 %; Platelet Count 332 K/mm3 (142-424); Red Blood Count 4.32 M/mm3 (4.20-5.40); Red Cell Distribution Width-SD 43.0 fL; White Blood Count 7.0 K/mm3 (4.8-10.8)
[2025-04-13 15:06] LABS: Alanine Aminotransferase 21 U/L (12-78); Albumin Level 4.6 g/dl (3.5-5.0); Alkaline Phosphatase 56 U/L (38-126); Anion Gap 9.3 mEq/L (5-15); Aspartate Amino Transferase 20 U/L (14-36); Bilirubin,Direct 0.3 mg/dl (0.0-0.4); Bilirubin,Indirect 0.2 mg/dL (0.0-0.9); Bilirubin,Total 0.5 mg/dl (0.2-1.3); Bilirubin,Unconjugated 0.3 mg/dL (0.0-1.1); Blood Urea Nitrogen 10 mg/dl (7-17); Calcium 9.6 mg/dl (8.4-10.2); Carbon Dioxide 26 mmol/L (22.0-30.0); Chloride 106 mmol/L (98-107); Cholesterol 138 mg/dl (140-200); Creatinine,Serum 0.70 mg/dl (0.52-1.04); Estimated Glomerular Filt Rate 100 ml/min (>60); GFR (African American) 121 ML/MIN (>60); Glucose 85 mg/dl (74-100); HDL Cholesterol 87 mg/dl (40-60); Magnesium 2.0 mg/dl (1.6-2.3); Potassium 4.3 mmoL/L (3.5-5.1); Sodium 137 mmol/L (136-145); Total Protein,Serum 6.7 g/dl (6.3-8.2); Triglycerides 175 mg/dl (30-150)
[2025-04-13 15:26] LABS: Free T4 (Free Thyroxine) 1.53 ng/dl (0.78-2.19)
[2025-04-13 15:38] LABS: Thyroid Stimulating Hormone 3.60 uIU/mL (0.465-4.68)
== END 2025-04-13 23:59 | disposition home or self-care (01) ==
LOC: LAB 13:49
PROVIDERS: PCP Family Medicine; Visit Provider Internal Medicine
DX: E87.6 Hypokalemia (principal); I15.8 Other secondary hypertension; I31.39 Other pericardial effusion (noninflammatory); R60.9 Edema, unspecified
CPT/HCPCS: 36415; 80048; 80061; 80076; 83735; 84439; 84443; 85025